=== PATIENT | male | born 1940 | race Caucasian/White ===

== ENCOUNTER → 2017-08-30 | Outpatient (CLI) | payer OTHER, BC ==
[~2017-08-30] MED LIST: ATOR10TA82 PO; B-COTAB18 PO; CLTP PO; COEN10CA4 PO; DPH/ PO; LEVO25TA PO; LISI-729 PO; MULT-506 PO; MULT-663 PO; PANT40TA PO; RED600TA PO; SILD100T PO; VITAMIN C PO
== END | disposition home or self-care (01) ==
LOC: C.RDSM 09:20
PROVIDERS: ATTEND Family Medicine Sports Medicine
DX: M54.6 Pain in thoracic spine (principal)

== ENCOUNTER 2017-10-10 08:57 | Emergency (ER) | payer OTHER, BC ==
[~2017-10-10] VITALS: Ht 182.9 cm; Wt 89.4 kg
[2017-10-10 08:59] VITALS: TEMP 36.4; Ht 182.9 cm; Wt 89.4 kg
[2017-10-10] MEDS ORDERED: TPRSR/25 PO (09:27)
[2017-10-10] MEDS ORDERED: COLE1TAB4 PO (09:27)
[2017-10-10] MEDS ORDERED: LEVO75TA5 PO (09:27)
[2017-10-10] MEDS ORDERED: VNTHFA/IN INH (09:28)
[2017-10-10] MEDS ORDERED: METOCLOPRAMIDE HCL INJ 5 MG/ML 2 ML VIAL IV STA (09:30)
--- NOTE | 2017-10-10 09:32 | EMERGENCY ROOM VISIT NOTE ---
History Report prepared by El: Rachid Partida Under the Supervision of: Dr. Helio Loya M.D. First contact with patient: 09:12 Chief Complaint: ABDOMINAL PAIN Stated Complaint: ABDOMINAL PAIN History of Present Illness The patient is a 76 year old male with a history of diverticulitis who presents to the Emergency Room with complaints of waxing and waning lower abdominal pain that started 2 days ago. He says that he was at [facility] prior to arrival, and was sent here for a CT scan. He states that the pain was bad the night of onset, but was not quite as bad yesterday, but the pain is always there. The patient says that he felt constipated, so he took Dulcolax 2 nights ago and passed some stool yesterday. The patient states that he still feels constipated however. He notes that his current pain is somewhat similar to the pain during his bouts of diverticulitis. The patient is not on any blood thinners. Source of History: patient Onset: 2 days ago Position: abdomen (lower) Symptom Intensity: pain always there - sent here for CT scan Quality: other (hx of diverticulitis) Timing: waxes/wanes Note: Associated symptoms: A bit constipated. Review of Systems See HPI for pertinent positives & negatives. A total of 10 systems reviewed and were otherwise negative. Past Medical & Surgical Medical Problems: (1) Heart disease (2) HTN (hypertension) Surgical Problems: (1) History of mitral valve repair Family History Hypertension Social History Smoking Status: Former Smoker Alcohol Use: occasionally Drug Use: none Marital Status: Housing Status: lives with significant other Occupation Status: retired Current/Historical Medications Scheduled Atorvastatin (Lipitor), 0.5 TAB PO MWF B-Complex Vitamins (Vitamin B Complex), 1 TAB PO DAILY Ciprofloxacin Hcl (Cipro), 1 TAB PO BID Colestipol Hcl (Micronized Colestipol Hcl), 2 TABS PO BID Levothyroxine Sodium (Levothyroxine Sodium), 1 TAB PO DAILY Lisinopril (Zestril), 2.5 MG PO DAILY Metoprolol Succinate (Metoprolol Succinate ER), 1 TAB PO DAILY Metronidazole (Flagyl), 500 MG PO TID Multiple Minerals W/ Vitamins (Citracal Plus), 1 TAB PO DAILY Multivitamin (Multivitamin), 1 TAB PO DAILY Red Yeast Rice Extract (Red Yeast Rice), 1 TAB PO DAILY Sildenafil Citrate (Viagra), 60 MG PO PRN Scheduled PRN Albuterol Hfa (Ventolin Hfa), 2 PUFFS INH for Wheezing Allergies Coded Allergies: Aspirin (Unverified Adverse Reaction, Mild, GI UPSET, 10/10/17) Physical Exam Vital Signs Date Time Temp Pulse Resp B/P (MAP) Pulse Ox O2 Delivery O2 Flow Rate FiO2 10/10/17 13:23 52 16 139/65 97 10/10/17 12:15 52 16 119/55 97 Room Air 10/10/17 10:35 60 16 130/63 95 Room Air 10/10/17 08:59 36.4 53 18 149/79 97 Room Air Physical Exam GENERAL: Patient is a healthy-appearing well-nourished 76 year old male. HEAD: Normocephalic atraumatic EYES: Ocular movements intact pupils equal and react to light OROPHARYNX mucous membranes are moist no exudates present no erythema or edema present NECK: Supple no nuchal rigidity CHEST: Good equal expansion LUNGS: Clear and equal to auscultation CARDIAC: Normal S1 and S2 ABDOMEN: Soft, slight suprapubic tenderness, no guarding BACK: No CVA tenderness EXTREMITIES: No pain upon palpation normal muscle strength in all groups no clubbing cyanosis or edema NEURO: Patient is following commands and answering questions appropriately. Alert and oriented x3 Cranial Nerves 2-12 grossly intact Medical Decision & Procedures ER Provider Diagnostic Interpretation: CT results as stated below per my review and radiologist interpretation: CT OF THE ABDOMEN AND PELVIS WITH CONTRAST CLINICAL HISTORY: Left lower quadrant abdominal pain. COMPARISON STUDY: CT of the abdomen and pelvis November 16, 2010. TECHNIQUE: Following IV administration of 91 mL of Optiray-320, axial images of the abdomen and pelvis were obtained from the lung bases to the proximal femurs. Images were reviewed in the axial, sagittal, and coronal planes. IV contrast was administered without complication. A dose lowering technique was utilized adhering to the principles of ALARA. Oral contrast was administered. CT DOSE: 591.36 mGy.cm FINDINGS: The heart is mildly enlarged. The liver, adrenal glands and pancreas are unremarkable as is the right kidney. There has been interval development of mild to moderate left hydronephrosis since CT of November 16, 2010. No ureteral calculi are present. There is a 4 mm calculus within lower pole of the left kidney. The etiology for this dilatation is unclear however there is a vessel in close proximity to the ureteropelvic junction. The caliber of the left ureter is normal. No pneumatosis, free air or portal venous gas is present. There is an inflamed diverticulum of the mid sigmoid colon with mild pericolonic infiltration. There is no free air or abscess. There is been interval development of moderate splenomegaly since prior CT. Mild upper abdominal lymphadenopathy is also developed with a 1.6 cm portacaval lymph node. The appendix is normal. IMPRESSION: 1. Mild acute sigmoid diverticulitis. No free air or abscess. 2. Interval development of moderate splenomegaly and mild upper abdominal lymphadenopathy since CT of November 16, 2010. This is nonspecific but raises the possibility of a lymphoproliferative disorder. 3. Interval development of mild to moderate left hydronephrosis with normal caliber left ureter. This finding could be related to a crossing vessel, stricture or occult lesion. Nonemergent urologic consultation is recommended. No ureteral calculi identified. Electronically signed by: Octavio Wiseman M.D. 10/10/2017 12:39 PM Dictated Date/Time: 10/10/2017 12:28 PM Laboratory Results 10/10/17 09:35 Red Blood Count 4.80, Mean Corpuscular Volume 86.5, Mean Corpuscular Hemoglobin 29.8, Mean Corpuscular Hemoglobin Concent 34.5, Mean Platelet Volume 9.3, Neutrophils (%) (Auto) 69.3, Lymphocytes (%) (Auto) 19.9, Monocytes (%) (Auto) 9.4, Eosinophils (%) (Auto) 1.0, Basophils (%) (Auto) 0.2, Neutrophils # (Auto) 3.62, Lymphocytes # (Auto) 1.04, Monocytes # (Auto) 0.49, Eosinophils # (Auto) 0.05, Basophils # (Auto) 0.01 10/10/17 09:35 Test 10/10/17 09:35 10/10/17 10:30 White Blood Count 5.22 K/uL (4.8-10.8) Red Blood Count 4.80 M/uL (4.7-6.1) Hemoglobin 14.3 g/dL (14.0-18.0) Hematocrit 41.5 % (42-52) Mean Corpuscular Volume 86.5 fL (80-100) Mean Corpuscular Hemoglobin 29.8 pg (25-34) Mean Corpuscular Hemoglobin Concent 34.5 g/dl (32-36) Platelet Count 144 K/uL (130-400) Mean Platelet Volume 9.3 fL (7.4-10.4) Neutrophils (%) (Auto) 69.3 % Lymphocytes (%) (Auto) 19.9 % Monocytes (%) (Auto) 9.4 % Eosinophils (%) (Auto) 1.0 % Basophils (%) (Auto) 0.2 % Neutrophils # (Auto) 3.62 K/uL (1.4-6.5) Lymphocytes # (Auto) 1.04 K/uL (1.2-3.4) Monocytes # (Auto) 0.49 K/uL (0.11-0.59) Eosinophils # (Auto) 0.05 K/uL (0-0.5) Basophils # (Auto) 0.01 K/uL (0-0.2) RDW Standard Deviation 43.7 fL (36.4-46.3) RDW Coefficient of Variation 13.8 % (11.5-14.5) Immature Granulocyte % (Auto) 0.2 % Immature Granulocyte # (Auto) 0.01 K/uL (0.00-0.02) Anion Gap 9.0 mmol/L (3-11) Est Creatinine Clear Calc Drug Dose 61.6 ml/min Estimated GFR () 73.6 Estimated GFR (Non- 63.5 BUN/Creatinine Ratio 14.5 (10-20) Calcium Level 8.8 mg/dl (8.5-10.1) Total Bilirubin 0.7 mg/dl (0.2-1) Direct Bilirubin 0.2 mg/dl (0-0.2) Aspartate Amino Transf (AST/SGOT) 17 U/L (15-37) Alanine Aminotransferase (ALT/SGPT) 26 U/L (12-78) Alkaline Phosphatase 123 U/L (45-117) Total Protein 6.6 gm/dl (6.4-8.2) Albumin 3.6 gm/dl (3.4-5.0) Lipase 123 U/L (73-393) Urine Color YELLOW Urine Appearance CLEAR (CLEAR) Urine pH 5.0 (4.5-7.5) Urine Specific [place] 1.020 (1.000-1.030) Urine Protein NEG (NEG) Urine Glucose (UA) NEG (NEG) Urine Ketones NEG (NEG) Urine Occult Blood TRACE (NEG) Urine Nitrite NEG (NEG) Urine Bilirubin NEG (NEG) Urine Urobilinogen NEG (NEG) Urine Leukocyte Esterase NEG (NEG) Urine WBC (Auto) 1-5 /hpf (0-5) Urine RBC (Auto) 0-4 /hpf (0-4) Urine Hyaline Casts (Auto) 1-5 /lpf (0-5) Urine Epithelial Cells (Auto) 0-5 /lpf (0-5) Urine Bacteria (Auto) NEG (NEG) Labs reviewed by ED physician. Medications Administered Medications (Trade) Dose Ordered Sig/Derrick Route Start Time Stop Time Status Last Admin Dose Admin Metoclopramide HCl (Reglan Inj) 10 mg NOW STAT IV 10/10/17 09:30 10/10/17 09:31 DC 10/10/17 09:43 10 MG Ciprofloxacin (Cipro Tab) 500 mg NOW STAT PO 10/10/17 12:57 10/10/17 12:59 DC 10/10/17 13:09 500 MG Metronidazole (Flagyl Tab) 500 mg NOW STAT PO 10/10/17 12:57 10/10/17 12:59 DC 10/10/17 13:09 500 MG ED Course 0924: Past medical records reviewed. The patient was evaluated in room B11B. A complete history and physical examination was performed. 0930: Ordered Reglan Inj 10 mg IV. 1255: Upon reexamination the patient is resting comfortably. I discussed results and treatment plan with the patient. He verbalizes agreement and understanding. The patient is ready for discharge. 1257: Ordered Flagyl Tab 500 mg PO, Cipro Tab 500 mg PO. Medical Decision Differential diagnosis: Etiologies such as appendicitis, diverticulitis, PUD, biliary pathology, UTI, pancreatitis, obstruction, mesenteric ischemia, aortic pathology, infections, inflammatory bowel disease, renal colic, as well as others were entertained. This is a 76 rolled male who presents emergency department complaining of left lower quadrant abdominal pain. Patient does have a history of diverticulitis. He was given Cipro as well as Flagyl and Reglan in the emergency department. I lengthy discussion with the patient regarding his lymph nodes on his CAT scan as well as his hydronephrosis on the left. I stressed the need for follow-up with urology I feel that the patient as well as to be discharged home as he does not have an elevation in his white blood count cell count is afebrile. He will return to emergency department if he develops severe abdominal pain. Patient was in agreement with the treatment plan.. Medication Reconcilliation Current Medication List: was personally reviewed by me Blood Pressure Screening Patient's blood pressure: Normal blood pressure Impression Primary Impression: Diverticulitis Scribe Attestation The scribe's documentation has been prepared under my direction and personally reviewed by me in its entirety. I confirm that the note above accurately reflects all work, treatment, procedures, and medical decision making performed by me. Departure Information Dispostion Home / Self-Care Prescriptions Metronidazole (Flagyl) 500 Mg Tab 500 MG PO TID for 10 Days, #30 TAB Prov: Helio Lyoa MD 10/10/17 Ciprofloxacin Hcl (CIPRO) 500 Mg Tab 1 TAB PO BID for 10 Days, #20 TAB Prov: Helio Loya MD 10/10/17 Referrals Varsha Casiano DO (PCP) Jazmin Sutton MD Forms Call Back Authorization, HOME CARE DOCUMENTATION FORM, IMPORTANT VISIT INFORMATION, School Instructions, Work Instructions Patient Instructions Diverticulitis Dc, Diverticulosis Diverticulitis, Lymphadenopathy, My [facility] Additional Instructions Follow up with PCP for increase in lymph nodes Follow up with Dr Sutton for left hydronephrosis with DR Sutton You have been examined and treated today on an emergency basis only. This is not a substitute for, or an effort to provide, complete comprehensive medical care. It is impossible to recognize and treat all injuries or illnesses in a single emergency department visit. It is therefore important that you follow up closely with Dr Casiano. Call as soon as possible for an appointment. Thank you for your time and consideration. I look forward to speaking with you again soon. Please don't hesitate to call us if you have any questions.
[2017-10-10] MEDS ORDERED: OPTIRAY 320 IV PRN (09:45)
[2017-10-10 09:47] LABS: BASO % 0.2 %; BASO ABS # 0.01 K/uL (0-0.2); EOS ABS # 0.05 K/uL (0-0.5); HEMATOCRIT 41.5 % (42-52); HEMOGLOBIN 14.3 g/dL (14.0-18.0); IG# 0.01 K/uL (0.00-0.02); LYMPH % 19.9 %; LYMPH ABS # 1.04 K/uL (1.2-3.4); MEAN CELL VOLUME 86.5 fL (80-100); MEAN CORPUSCULAR HEMOGLOBIN 29.8 pg (25-34); MEAN CORPUSCULAR HGB CONC 34.5 g/dl (32-36); MEAN PLATELET VOLUME 9.3 fL (7.4-10.4); MONO % 9.4 %; MONO ABS # 0.49 K/uL (0.11-0.59); NEUT % 69.3 %; NEUT ABS # 3.62 K/uL (1.4-6.5); PLATELET COUNT 144 K/uL (130-400); RED CELL DISTRIBUTION WIDTH CV 13.8 % (11.5-14.5); RED CELL DISTRIBUTION WIDTH SD 43.7 fL (36.4-46.3); WHITE BLOOD COUNT 5.22 K/uL (4.8-10.8)
[2017-10-10 10:11] LABS: ALBUMIN 3.6 gm/dl (3.4-5.0); CALCIUM 8.8 mg/dl (8.5-10.1); CREATININE 1.12 mg/dl (0.60-1.40); POTASSIUM 4.2 mmol/L (3.5-5.1); TOTAL PROTEIN 6.6 gm/dl (6.4-8.2)
--- NOTE | 2017-10-10 12:41 | DIAGNOSTIC IMAGING REPORT ---
CT OF THE ABDOMEN AND PELVIS WITH CONTRAST CLINICAL HISTORY: Left lower quadrant abdominal pain. COMPARISON STUDY: CT of the abdomen and pelvis November 16, 2010. TECHNIQUE: Following IV administration of 91 mL of Optiray-320, axial images of the abdomen and pelvis were obtained from the lung bases to the proximal femurs. Images were reviewed in the axial, sagittal, and coronal planes. IV contrast was administered without complication. A dose lowering technique was utilized adhering to the principles of ALARA. Oral contrast was administered. CT DOSE: 591.36 mGy.cm FINDINGS: The heart is mildly enlarged. The liver, adrenal glands and pancreas are unremarkable as is the right kidney. There has been interval development of mild to moderate left hydronephrosis since CT of November 16, 2010. No ureteral calculi are present. There is a 4 mm calculus within lower pole of the left kidney. The etiology for this dilatation is unclear however there is a vessel in close proximity to the ureteropelvic junction. The caliber of the left ureter is normal. No pneumatosis, free air or portal venous gas is present. There is an inflamed diverticulum of the mid sigmoid colon with mild pericolonic infiltration. There is no free air or abscess. There is been interval development of moderate splenomegaly since prior CT. Mild upper abdominal lymphadenopathy is also developed with a 1.6 cm portacaval lymph node. The appendix is normal. IMPRESSION: 1. Mild acute sigmoid diverticulitis. No free air or abscess. 2. Interval development of moderate splenomegaly and mild upper abdominal lymphadenopathy since CT of November 16, 2010. This is nonspecific but raises the possibility of a lymphoproliferative disorder. 3. Interval development of mild to moderate left hydronephrosis with normal caliber left ureter. This finding could be related to a crossing vessel, stricture or occult lesion. Nonemergent urologic consultation is recommended. No ureteral calculi identified. Electronically signed by: Octavio Wiseman M.D. 10/10/2017 12:39 PM Dictated Date/Time: 10/10/2017 12:28 PM
[2017-10-10] MEDS ORDERED: METRONIDAZOLE 250 MG TAB PO STA (12:57)
[2017-10-10] MEDS ORDERED: CIPROFLOXACIN 500 MG TAB PO STA (12:57)
[2017-10-10] MEDS ORDERED: METR-163 PO (13:01)
[2017-10-10] MEDS ORDERED: CIPR-255 PO (13:01)
[2017-10-10 13:23] VITALS: BP 139/65; PULSE 52; O2SAT 97
== END 2017-10-10 13:24 | disposition home or self-care (01) ==
LOC: C.EDB 08:59
DX: K57.32 Diverticulitis of large intestine without perforation or abscess without bleeding (principal); R59.0 Localized enlarged lymph nodes; N13.30 Unspecified hydronephrosis; I10 Essential (primary) hypertension; Z87.891 Personal history of nicotine dependence; Z88.6 Allergy status to analgesic agent; Z82.49 Family history of ischemic heart disease and other diseases of the circulatory system

== ENCOUNTER 2023-08-21 13:49 | Observation (INO) ==
--- OUTSIDE RECORDS SUMMARY | 2023-08-21 13:57 | External Medical Summary ---
Author Name Unknown Address Unknown Organization [id number]:[facility] [place] [address] Laboratory Report Ordering Provider Test Date Status SCARLETT ROCA 08/19/2023 07:53:33 Final Observation Date Value Abnormality Reference (Units ) Status BUN 08/19/2023 07:53:33 20 6-20 (mg/dL) Final Creatinine 08/19/2023 07:53:33 1.2 0.6-1.2 (mg/dL) Final Glomerular filtration rate/1.73 sq M.predicted [Volume Rate/Area] in Serum, Plasma or Blood by Creatinine-based formula (CKD-EPI) 08/19/2023 07:53:33 58 Below low normal >=60 (mL/min) Final eGFR is calculated based on the CKD-EPI 2020 equation SODIUM 08/19/2023 07:53:33 139 135-146 (m mol/L) Final Potassium 08/19/2023 07:53:33 4.5 3.5-5.1 (m mol/L) Final Cl 08/19/2023 07:53:33 103 98-107 (mm ol/L) Final CO2 08/19/2023 07:53:33 25 22-32 (mmo l/L) Final Anion gap 08/19/2023 07:53:33 11 7-15 (mmol /L) Final Glucose 08/19/2023 07:53:33 118 70-120 (mg /dL) Final Albumin 08/19/2023 07:53:33 4.1 3.8-5.0 (g /dL) Final AST (Aspartate aminotransferase) 08/19/2023 07:53:33 26 10-50 (U/L) Fin al Alk Phos 08/19/2023 07:53:33 142 Above high normal 35 -130 (U/L) Final Bilirubin, Total 08/19/2023 07:53:33 0.4 <=1 .2 (mg/dL) Final Calcium 08/19/2023 07:53:33 9.0 8.4-10.2 ( mg/dL) Final Protein 08/19/2023 07:53:33 6.5 6.0-8.3 (g /dL) Final ALT (Alanine aminotransferase) 08/19/2023 07:53:33 21 10-50 (U/L) Stan clinton Performing Location [facility] [address] [place] [address]
--- OUTSIDE RECORDS SUMMARY | 2023-08-21 13:57 | External Medical Summary | Summary of Care ---
Author Name Unknown Organization [facility] Address [address] [place] [address] Phone [phone] Care Team Providers Care Health And Safety Trainer Name Role Phone Varsha Casiano Primary Care Provider Reason for Visit * Reason Onset Date Comments Appointment 07/30/2023 Encounter Details Date Type Department Care Team (Late st Contact Info) Description 07/30/2023 Telephone Urology, [place] [address] [place] [address] Services, Scheduling [address] [place] [address] Appointment Allergies Active Allergy Reactions Criticality Noted Date Comments Aspirin Other (Please comment) 05/09/2014 Upset stomach Ciprofloxacin 10/17/2021 Cipro instructions say report numbness/tingling/pain in extremities. Had on & off pain in rt. foot at night. Numbness today. Have occssionally had pain in rt. foot at night following back surgery, but have not had numbness. Never had problem with Cipro before and now no problems with any other extremities. Latex 09/03/2021 Octacosanol Other (Please comment) 05/09/2014 Pt is unsure . Stuffy nose, runny nose muscle pain documented as of this encounter (statuses as of 08/03/2023) Medications Medication Sig Dispensed Refills Start Date End Date Status MULTIVITAMINS PO CAPS one capsule daily 0 Active Lactobacillus (PROBIOTIC ACIDOPHILUS) CAPS Take by mouth daily. 0 Active Calcium Carbonate-Vitamin D 500-5 MG-MCG Oral Tablet Take 1 Tablet by mouth in the morning. 0 Active Vitamin C 250 MG Oral Tablet (Ascorbic Acid) Take 1 Tablet by mouth in the morning. 0 Active Hydrocortisone (Perianal) 2.5 % External Cream (Anusol-HC) Administer into the rectum 2 times a day . 28 g 1 02/25/2022 Active Levothyroxine Sodium 75 MCG Oral Tablet (Levoxyl) Take by mouth 1 Tablet in the morning. (at least 30 min prior to breakfast or other meds). 90 Tablet 1 06/18/2022 Active Apixaban 5 MG Oral Tablet (Eliquis) Take 1 Tablet (5 mg) by mouth in the morning and 1 Tablet (5 mg) before bedtime. 60 Tablet 6 06/30/2022 Active Metoprolol Succinate ER 25 MG Oral Tablet Extended Release 24 Hour (toPROL XL)Indications:HTN, goal below 140/90,PSVT (paroxysmal supraventricular tachycardia) Take 1/2 tab by mouth every evening 34 Tablet 11 08/03/2022 Active Tamsulosin HCl 0.4 MG Oral Capsule (Flomax)Indications:We ak urinary stream Take 1 Capsule by mouth in the morning. Take at bedtime. 90 Capsule 3 10/14/2022 Active Sildenafil Citrate 20 MG Oral Tablet (Revatio) Take 3-5 tabs as needed 1 hour prior to intercourse 30 Tablet 11 10/20/2022 Active Sulfacetamide Sodium-Sulfur 10-5 % External CreamIndications:Rosac ea Apply to face once daily 28 g 1 10/20/2022 Active Vitamin B Complex Oral Tablet Take 1 Tablet by mouth in the morning. 0 Active Loperamide HCl 2 MG Oral Tablet Take 1 Tablet by mouth 4 times a day as needed for Diarrhea. 0 Active Ubiquinol 100 MG Oral Capsule Take by mouth. 0 Active Rosuvastatin Calcium 10 MG Oral Tablet (Crestor) Take 1 Tablet by mouth in the morning. 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 History of nonmelanoma skin cancer 07/13/2017 Overview: BCC left cheek 07/07 BCC left cheek 03/05 Rosacea 07/07/2016 Aortic regurgitation 09/23/2015 Organic erectile dysfunction 06/20/2015 Subclinical hypothyroidism 06/20/2015 Overview: Started on LT4 25 mcg daily 02/2015 Spermatocele 06/02/2014 Overview: Left S/P mitral valve repair 06/03/2012 Gastroesophageal reflux disease without esophagi tis 07/07/2010 HTN, goal below 130/80 03/24/2005 Irritable bowel syndrome with diarrhea 5 BPH with obstruction/lower urinary tract symptom s 03/24/2005 documented as of this encounter (statuses as of 08/03/2023) Resolved Problems Problem Noted Date Diagnosed Date Resolved Date Hypertensive kidney disease with chronic kidney disease stage III 02/16/2022 08/05/2022 Hypertensive kidney disease with chronic kidney disease stage III 02/16/2022 08/05/2022 Myelodysplastic syndrome, unspecified 02/12/2021 08/05/2022 Thrombocytopenia 02/12/2021 08/05/2022 Shivering 10/21/2020 08/05/2022 Hypertensive kidney disease with stage 3a chronic kidney disease 07/01/2020 08/05/2022 Overview: Per CKD protocol Hypertensive kidney disease with chronic kidney disease stage III 01/20/2019 08/07/2019 Hypertensive kidney disease with chronic kidney disease stage III 01/12/2019 07/04/2020 Overview: Per CKD protocol Kidney disease, chronic, sta ge III (GFR 30-59 ml/min) 01/02/2019 02/01/2019 Overview: Per CKD protocol #1 PSVT (paroxysmal supraventri cular tachycardia) 10/07/2018 08/05/2022 S/P MVR (mitral valve repair) 03/08/2018 08/07/2019 Rectal urgency 10/14/2017 08/05/2022 Inflammation of sacroiliac joint 12/28/2016 08/05/2022 History of basal cell carcinoma 07/07/2016 07/13/2017 Aortic valve sclerosis 07/23/201408/05 Dyslipidemia, goal LDL below 130 01/16/2014 07/18/2018 Chest pain 07/21/2012 03/15/2014 Atrial fibrillation 06/08/2012 06/24/20 12 Other specified pre-operative examination 04/07/2012 12/28/2016 Cardiovascular symptoms 05/27/201102/21 Diarrhea 03/05/2011 08/05/2022 History of tobacco use 11/19/201008/05 Overview: Quit at age 28 Dyslipidemia, goal to be determined 07/06/2005 01/04/2014 ADVANCE DIRECTIVE INFORMATION 03/24/2005 12/28/2016 Overview: No, Advance Directive brochure given to patient. Diverticulosis of colon 03/24/200503/2017 Mitral valve regurgitation 1 10/06/2021 documented as of this encounter (statuses as of 08/03/2023) Immunizations Name Administration Dates Next Due COVID-19 mRNA, LNP-s, No Pre serve, 2-Dose Series (Moderna) 05/02/2021,10/18/2020,09/20/2020 COVID-19, mRNA, LNP-s, PF, B ooster, 100mcg/0.5mg (Moderna) 10/13/2021 Pneumococcal Conjugate Vacc, 13 Valent (Prevnar) 12/03/2015 Pneumococcal Conjugate Vacci ne, 20-valent ([id number]) 02/26/2022 Pneumococcal Polysaccharide PPV23 (Pneumovax) 07/05/2006 Season Influenza, Quad, PF, Adjuvanted, 65+ Yrs, IM (FLUAD) 05/04/2020 Seasonal Influenza, PF, 6 M & above, IM , (FluLaval or Fluzone) 05/20/2017 Seasonal Influenza, Quadriva lent Hd (Fluzone Hd) 06/03/2022,05/24/2021 Seasonal Influenza, Quadriva lent, No Preserve, IM 06/17/2018,06/17/2016,05/23/2015 Seasonal Influenza, Split, I IV3, With Preserve, Inj 05/28/2014,05/25/2013,05/19/2012,05/23,06/26/2010,05/30/2009,05/24/20 08,07/11/2007,07/05/2006 05/30/2010 Seasonal Influenza, Trivalen t, High Dose, No Preserve, IM 05/11/2019 TD, Preservative Free 05/24/2008 TDAP (age 10 and older)(Boostrix) 02/22/2017 Varicella Zoster Vaccine (Adult) 11/14/2008 Zoster Vaccine Recombinant (Shingrix) 01/18/2019 ,06/09/2018 documented as of this encounter Social History Tobacco Use Types Packs/Day Years Used Date Smoking Tobacco: Former Cigarettes 1 30 Q uit: 08/23/1986 Smokeless Tobacco: Never Alcohol Use Standard Drinks/Week Comments Yes 0 (1 standard drink = 0.6 oz pur e alcohol) Socially AUDIT-C Answer Date Recorded Frequency of Alcohol Consumption 2-4 times a wed th 02/29/2020 Average Number of Drinks 1 or 2 020 Frequency of Binge Drinking Not on file 04/2020 PHQ-2 Answer Date Recorded PHQ Adult Total Score 0 03/13/2021 Hunger Vital Sign Answer Date Recorded Within the past 12 months, y ou worried that your food would run out before you got the money to buy more. Never true 03/13/20 21 Within the past 12 months, t he food you bought just didn't last and you didn't have money to get more. Never true 03/13/2021 Sex and Gender Information Value Date Recorded Sex Assigned at Male 12/15/2018 10:38 AM EDT Gender Identity Male 12/15/2018 10:38 AM EDT Sexual Orientation Straight 12/15/2018 10 :38 AM EDT Job Start Date Occupation Industry Not on file Not on file Not on file documented as of this encounter Functional Status Functional Status Response Date of Assess ment Are you deaf or do you have serious difficulty h earing? No 09/29/2018 Are you blind or do you have serious difficulty seeing, even when wearing glasses? No 09/29/2018 Do you have serious difficul ty walking or climbing stairs? (5 years old or older) No 09/29/2018 Do you have difficulty dress ing or bathing? (5 years old or older) No 09/29/2018 Because of a physical, menta l, or emotional condition, do you have difficulty doing errands alone such as visiting a doctor s office or shopping? (15 years old or older) No 09/29/19 19 Cognitive Status Response Date of Assessm ent Because of a physical, menta l, or emotional condition, do you have serious difficulty concentrating, remembering, or making decisions? (5 years old or older) No 09/29/2018 documented as of this encounter Miscellaneous Notes * Telephone Encounter - Gladis Ackerman OSA - 07/30/2023 4:03 PM EST Patient is having a weakened and split urine stream. First I have with Dr Flores is 02/28/2024, which Ihave scheduled and wait listed for. Is this acceptable, or should he be seen sooner? Please advise,thank you documented in this encounter Plan of Treatment Upcoming Encounters Date Type Department Care Team (Late st Contact Info) Description 09/02/2023 9:30 AM EST Cardiac Studies Cardiac Studies, [facility] [address] [facility] [place] [address] 09/23/2023 2:30 PM EST Office Visit Hematology/Oncology [facility] [address] [place] [address] Kristie Miranda CRNP [address] [place] [address] 10/26/2023 11:20 AM EST Office Visit Dermatology [facility] 200 [facility] [place] [address] Ayaka Alaniz PA-C [address] [place] [address] 02/28/2024 9:15 AM EDT Office Visit Urology, [place] [address] [place] [address] Shree Flores MD [address] [place] [address] Health Maintenance Due Date Last Done Comments CKD PHOS USE SMARTSET 84781 12/25/2009 12/25/2008, 1 08/31/2005 Depression Screening 03/13/2022 03/13/2021 Albumin/Creatinine Ratio 02/19/2023 02/19/2022, 01/22 HbA1c 02/19/2023 02/19/2022, 01/22, 02/01/2020, Additional history exists COVID-19 Vaccine ( season) 2023 10/13/2021, 05/02/2021, 10/18/2020, Additional history exists Influenza Vaccine (FLU shot) (#1) 2023 07/06/2022, 06/03/2022, 05/24/2021, Additional history exists GFR 12/29/2023 06/30/2023, 03/24, 03/24/2023, Additional history exists TSH 04/13/2024 04/13/2023, 05/0 08/2022, 02/19/2022, Additional history exists CKD HGB USE SMARTSET 21059 06/30/202406/30, 06/30/2023, 05/24/2023, Additional history exists DTaP,Tdap,and Td Vaccines (2 - Td or Tdap) 02/22/2027 02/22/2017, 05/24/2008 Zoster Vaccines Completed 01/18/2019, 05/23, 11/14/2008 Pneumococcal Vaccine: 65+ Years Completed 02/26/2022, 12/03/2015, 07/05/2006 GARDASIL-HPV IMMUNIZATION SERIES Aged Out No longer eligible based on patient's age to complete this topic Hepatitis B Aged Out No longer eligi ble based on patient's age to complete this topic MENINGOCOCCAL (MENACTRA/MENVEO) Aged Out No longer eligible based on patient's age to complete this topic documented as of this encounter Medical Devices Implanted Type Area Loader Demolder Device Identifier Shelf Expiration Date Model / Serial / Lot Ring Cantu 27mm [id number] - [id number] Implanted:Qty: 1 on 06/02/2012 at OR [facility] [place] N/A: Heart [employer] : CARDIAC SURGERY 10/08/2016 [id number] / [id number] / Mesh Marlex Large [id number] - [id number] Implanted:Qty: 1 on 01/07/2018 by Ori Burleson DO at OR [facility] Right: Groin CR BARD : DAVOL 10/20/2022 [id number] / / [id number] Description:#2 documented as of this encounter Advance Directives Latest Code Status on File Code Status Date Activated Date Inactivated Comments Full Code 09/29/2018 11:26 AM 09/30/2018 10:09 PM Question Answer Comments Discussion of Advance Direct jaqueline occurred with: Not Discussed Code Status History Code Status Date Activated Date Inactivated Comments Full Code 06/02/2012 2:59 PM 06/08/2012 7:06 PM Thi s order reflects the patients wishes and were consensually agreed upon. Care Teams Health And Safety Trainer Relationship Specialty Start Date End Date Varsha Casiano DO [address] [place] [address] PCP - General Family Medicine 01/31/17 documented as of this encounter
--- OUTSIDE RECORDS SUMMARY | 2023-08-21 13:57 | External Medical Summary ---
Author Name Unknown Address Unknown Organization K01:[facility] [address] [place] [address] Laboratory Report Ordering Provider Test Date Status SCARLETT ROCA 08/19/2023 07:53:33 Final Observation Date Value Abnormality Reference (Units ) Status LDH 08/19/2023 07:53:33 210 <=250 (U/L ) Final Performing Location [facility] [address] [place] [address]
--- OUTSIDE RECORDS SUMMARY | 2023-08-21 13:57 | External Medical Summary | Summary of Care ---
Author Name Unknown Organization [facility] Address [address] [place] [address] Phone [phone] Care Team Providers Care Semi Truck Driver Name Role Phone Varsha Casiano Primary Care Provider Reason for Visit * Reason Onset Date Comments Appointment 07/30/2023 Encounter Details Date Type Department Care Team (Late st Contact Info) Description 07/30/2023 Telephone Urology, [place] [address] [place] [address] Services, Scheduling [address] [place] [address] Appointment Allergies Active Allergy Reactions Criticality Noted [...] as of this encounter (statuses as of 08/02/2023) Medications Medication Sig Dispensed Refills Start Date [...] as of this encounter (statuses as of 08/02/2023) Active Problems Problem Noted Date Diagnosed Date [...] as of this encounter (statuses as of 08/02/2023) Resolved Problems Problem Noted Date Diagnosed Date [...] as of this encounter (statuses as of 08/02/2023) Immunizations Name Administration Dates Next Due COVID-19 mRNA, LNP-s, No Pre serve, 2-Dose Series (Moderna) 05/02/2021,10/18/2020,09/20/2020 COVID-19, mRNA, LNP-s, PF, B ooster, 100mcg/0.5mg (Moderna) 10/13/2021 Pneumococcal Conjugate Vacc, 13 Valent (Prevnar) 12/03/2015 Pneumococcal Conjugate Vacci ne, 20-valent ([id number]) 02/26/2022 Pneumococcal Polysaccharide PPV23 (Pneumovax) 07/05/2006 SEASONAL INFLUENZA, PF, 6 M & Above, IM , (FLULAVAL or FLUZONE) 05/20/2017 Season Influenza, Quad, PF, Adjuvanted, 65+ Yrs, IM (FLUAD) 05/04/2020 Seasonal Influenza, Quadriva lent Hd (Fluzone Hd) [...] Frequency of Alcohol Consumption 2-4 times a mon th 02/29/2020 Average Number of Drinks 1 [...] 9:30 AM EST Cardiac Studies Cardiac Studies, [facility] [address] [facility] [place] [address] 09/23/2023 2:30 PM EST Office Visit Hematology/Oncology [facility] [address] [facility] [place] [address] Kristie Miranda CRNP [address] [place] [address] 02/28/2024 9:15 AM EDT Office Visit Urology, [place] [address] [place], [place] [address] Shree Flores MD [address] [facility] [place] [address] Health Maintenance Due Date Last Done Comments CKD PHOS USE SMARTSET 35190 12/25/2009 12/25/2008, 1 08/31/2005 Depression Screening 03/13/2022 [...] Additional history exists CKD HGB USE SMARTSET 47913 06/30/202406/30, 06/30/2023, 05/24/2023, Additional history exists DTaP,Tdap,and [...] this encounter Medical Devices Implanted Type Area Flatbed Stitcher Device Identifier Shelf Expiration Date Model / Serial / Lot Ring Cantu 27mm [id number] - [id number] [place]planted:Q[place] 1 [place] [facility] [place] Heart [employer] : CARDIAC SURGERY 10/08/2016 [id number] / [id number] / Mesh Marlex Large [id number] - [id number] Implanted:Qty: 1 on 01/07/2018 by Ori Burleson DO at OR [facility] Right: Gian OWENS BARD : DAVOL 10/20/2022 [id number] / / [id number] Description:#2 documented as of this encounter Advance [...] and were consensually agreed upon. Care Teams Semi Truck Driver Relationship Specialty Start Date End Date Varsha Casiano DO [address] [place] [address] PCP - General Family Medicine 01/31/17 documented as of this encounter
--- OUTSIDE RECORDS SUMMARY | 2023-08-21 13:57 | External Medical Summary ---
Author Name Unknown Address Unknown Organization K09[facility] [place] [address] Laboratory Report Ordering Provider Test Date Status SCARLETT ROCA 08/19/2023 07:53:33 Final Observation Date Value Abnormality Reference (Units ) Status WBC, Total 08/19/2023 07:53:33 6.66 4.00-10.8 0 (K/uL) Final RBC 08/19/2023 07:53:33 5.01 4.50-5.25 (M/uL) Final Hemoglobin 08/19/2023 07:53:33 14.8 14.0-16.8 (g/dL) Final HCT 08/19/2023 07:53:33 45.2 40.0-48.4 (%) Final MCV 08/19/2023 07:53:33 90.2 82.0-99.5 (fL) Final MCH 08/19/2023 07:53:33 29.5 27.0-34.0 (pg) Final MCHC 08/19/2023 07:53:33 32.7 32.0-36.0 (g/dL) Final RDW 08/19/2023 07:53:33 14.2 11.5-15.5 (%) Final Platelets 08/19/2023 07:53:33 190 140-400 (K /uL) Final MPV 08/19/2023 07:53:33 10.1 6.6-11.1 ( fL) Final Performing Location [facility] [place] [address]
--- OUTSIDE RECORDS SUMMARY | 2023-08-21 13:57 | External Medical Summary | Summary of Care ---
Author Name Unknown Organization [facility] Address [address] [facility] [place] [address] Phone [phone] Care Team Providers Care Skimmer Name Role Phone Varsha Casiano DO Primary Care Provider Reason for Visit * Reason Comments Outpatient Testing Encounter Details Date Type Department Care Team (Late st Contact Info) Description 08/19/2023 7:40 AM EST Laboratory [facility] [place] [address] [place] [address] [place] [address] [place] [address] Splenic marginal zone b-cell lymphoma (HCC) Allergies Active Allergy Reactions Criticality Noted Date [...] as of this encounter (statuses as of 08/19/2023) Medications Medication Sig Dispensed Refills Start Date [...] as of this encounter (statuses as of 08/19/2023) Active Problems Problem Noted Date Diagnosed Date [...] as of this encounter (statuses as of 08/19/2023) Resolved Problems Problem Noted Date Diagnosed Date [...] brochure given to patient. Diverticulosis of colon 03/24/2005 05/03/2017 Mitral valve regurgitation 1 10/06/2021 documented as of this encounter (statuses as of 08/19/2023) Immunizations Name Administration Dates Next Due COVID-19 mRNA, LNP-s, No Pre serve, 2-Dose Series (Moderna) 05/02/2021,10/18/2020,09/20/2020 COVID-19, mRNA, LNP-s, PF, B ooster, 100mcg/0.5mg (Moderna) 10/13/2021 Pneumococcal Conjugate Vacc, 13 Valent (Prevnar) 12/03/2015 Pneumococcal Conjugate Vacci ne, 20-valent ([id number]) 02/26/2022 Pneumococcal Polysaccharide PPV23 (Pneumovax) 07/05/2006 Season [...] No 09/29/2018 documented as of this encounter Plan of Treatment Upcoming Encounters Date Type Department Care Team (Late st Contact Info) Description 08/26/2023 11:30 AM EST Office Visit Gastroenterology, [facility] [address] [place] [address] Zaira Miranda CRNP [address] [facility] [place] [address] 08/26/2023 3:30 PM EST Office Visit Hematology/Oncology [facility] 200 [place] [address] Kirstie Miranda CRNP [address] [facility] [place] [address] 08/27/2023 11:30 AM EST Office Visit Urology, [place] [address] [place] [address] Berry Castillo PA-C [address] [place] [address] 09/02/2023 9:30 AM EST Cardiac Studies Cardiac Studies, [facility] [address] [place] [address] 09/23/2023 2:30 PM EST Office Visit Hematology/Oncology [facility] 200 [facility] [place] [address] Kristie Miranda CRNP [address] [place] [address] 10/26/2023 11:20 AM EST Office Visit Dermatology [facility] [address] [facility] [place] [address] Ayaka Alaniz PA-C [address] [facility] [place] [address] Pending Results Name Type Priority Associated Diagnoses Date /Time COMPREHENSIVE METABOLIC PANEL Lab STAT Splenic marginal zone b-cell lymphoma (HCC) 08/19/2023 7:53 AM EST LD Lab STAT Splenic marginal zone b-cell lymphoma (HCC) 08/19/2023 7:53 AM EST Health Maintenance Due Date Last Done Comments CKD PHOS USE SMARTSET 44198 12/25/2009 12/25/2008, 1 08/31/2005 Depression Screening 03/13/2022 [...] Additional history exists CKD HGB USE SMARTSET 84683 06/30/202408/19, 08/19/2023, 06/30/2023, Additional history exists DTaP,Tdap,and Td Vaccines (2 [...] this encounter Medical Devices Implanted Type Area Microarray Operations Vice President Device Identifier Shelf Expiration Date Model / Serial / Lot Ring Cantu 27mm [id number] - [id number] Implanted:Qty: 1 on 06/02/2012 at [place] [facility] [place] N/A: Heart [employer] : CARDIAC SURGERY 10/08/2016 [id number] / [id number] / Mesh Marlex Large [id number] - [id number] Implanted:Qty: 1 on 01/07/2018 by Ori Burleson DO at OR [facility] Right: Groin CR BARD : DAVOL 10/20/2022 [id number] / / [id number] Description:#2 documented as of this encounter Procedures Procedure Name Priority Date/Time Associated Diagnosis Comments DIFFERENTIAL, AUTOMATED STAT 08/19/2023 7:53 AM EST Splenic marginal zone b-cell lymphoma (HCC) CBC STAT 08/19/2023 7:53 AM EST Splenic marginal zone b-cell lymphoma (HCC) CBC STAT 08/19/2023 7:53 AM EST Splenic marginal zone b-cell lymphoma (HCC) documented in this encounter Results * (ABNORMAL) DIFFERENTIAL, AUTOMATED (08/19/2023 7:53 AM EST) WBC 6.66 4.00 - 10.80 K/uL 08/19/2023 8:02 AM [facility] 56-02 Neutrophils % 71.7 40.0 - 75.0 % 08/19/2023 8:02 AM [facility] 56-02 Lymphocytes % 16.5(L) 18.0 - 42.0 % 08/19/2023 8:02 AM [facility] 56-02 Monocytes % 9.6 1.0 - 11.0 % 08/19/2023 8:02 AM [facility] 56-02 Eosinophils % 1.7 0.0 - 6.0 % 08/19/2023 8:02 AM [facility] 56-02 Basophils % 0.5 0.0 - 2.0 % 08/19/2023 8:02 AM [facility] 56-02 Absolute Neutrophils 4.78 1.80 - 7.70 K/uL 08/19/2023 8:02 AM [facility] 56-02 Absolute Lymphocytes 1.10 1.00 - 4.80 K/ul 08/19/2023 8:02 AM [facility] 56-02 Absolute Monocytes 0.64 0.00 - 1.10 K/uL 08/19/2023 8:02 AM [facility] 56-02 Absolute Eosinophils 0.11 0.00 - 0.70 K/uL 08/19/2023 8:02 AM [facility] 56-02 Absolute Basophils 0.03 0.00 - 0.20 K/uL 08/19/2023 8:02 AM [facility] 56-02 Blood Venous blood specimen / Unknown Venipuncture / Unknown 08/19/2023 7:53 AM EST 08/19/2023 7:54 AM EST Hannah NELSON LAB BLOOD ORDERAB LES [facility] 56-[address] [place] [address] * CBC (08/19/2023 7:53 AM EST) WBC 6.66 4.00 - 10.80 K/uL 08/19/2023 8:02 AM [facility] 56-02 RBC 5.01 4.50 - 5.25 M/uL 08/19/2023 8:02 AM [facility] 56- HGB 14.8 14.0 - 16.8 g/dL 08/19/2023 8:02 AM [facility] 56- HCT 45.2 40.0 - 48.4 % 08/19/2023 8:02 AM [facility] 56- MCV 90.2 82.0 - 99.5 fL 08/19/2023 8:02 AM [facility] 56- MCH 29.5 27.0 - 34.0 pg 08/19/2023 8:02 AM [facility] 56- MCHC 32.7 32.0 - 36.0 g/dL 08/19/2023 8:02 AM [facility] 56- RDW 14.2 11.5 - 15.5 % 08/19/2023 8:02 AM [facility] 56- PLT 190 140 - 400 K/uL 08/19/2023 8:02 AM [facility] 56- MPV 10.1 6.6 - 11.1 fL 08/19/2023 8:02 AM [facility] 56- Blood Venous blood specimen / Unknown Venipuncture / Unknown 08/19/2023 7:53 AM EST 08/19/2023 7:54 AM EST Hannah NELSON LAB BLOOD ORDERAB LES [facility] [address]- [address] [place] [address] documented in this encounter Visit Diagnoses Diagnosis 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 Care Teams Skimmer Relationship Specialty Start Date End Date Varsha Casiano DO [address] [place] [address] PCP - General Family Medicine 01/31/17 documented as of this encounter
[2023-08-21] MEDS ORDERED: HYDROCORTISONE SOD SUCCINATE 100 MG/2 ML VIAL IV STA (13:58)
[2023-08-21] MEDS ORDERED: OPTIRAY 320 125ml IV ONE (13:59)
--- NOTE | 2023-08-21 14:02 | Emergency Department Note ---
Impression & Plan Ischemic cerebrovascular accident (CVA) ED Provider Note NAME: ELHAM VILA AGE: 82 SEX: M : 1940 ARRIVES VIA: Ambulance INFORMANT: Patient, EMS personnel ED PROVIDER(S): Bert Bustamante DO CHIEF COMPLAINT: Stroke alert HPI: The patient is a 82-year-old male who presented to the emergency department for an evaluation of strokelike symptoms. The patient had an acute episode of right leg weakness and difficulty speaking at approxi-10 AM today. His symptoms did not last very long. He states they lasted minutes. He was with his significant other. He decided to come to the hospital for the symptoms. En route to the hospital the patient developed symptoms again at approximately 1:45 PM. He started noticing right-sided facial droop difficulty speaking right arm weakness and right leg weakness. The patient denies having any headache or falls. He does have a history of atrial flutter and does take Eliquis. He did not take his morning dose today but did take his last dose last evening. The patient denies having any history of stroke ROS: See above HPI for pertinent positives & negatives. A total of 10 systems reviewed and were otherwise negative. PAST MEDICAL HISTORY: See Below PAST SURGICAL HISTORY: See Below FAMILY HISTORY: See Below SOCIAL HISTORY: See Below HOME MEDICATIONS: See Below ALLERGIES: See Below VITALS: See Below PHYSICAL EXAMINATION: GENERAL: Patient is awake alert in no acute distress patient is resting comfortably and showing no signs of anxiety EYES: The conjunctivae are clear. The pupils are round and reactive. EARS, NOSE, MOUTH AND THROAT: The nose is without any evidence of any deformity. NECK: The neck is nontender and supple. RESPIRATORY: Normal respiratory effort is noted there is no evidence of wheezing rhonchi or rales CARDIOVASCULAR: Regular rate and rhythm noted there no murmurs rubs or gallops normal S1 normal S2. GASTROINTESTINAL: The abdomen is soft. Abdomen is nontender. MUSCULOSKELETAL/EXTREMITIES: There is no evidence of gross deformity full range of motion is noted in the hips and shoulders. SKIN: There is no obvious evidence of any rash. There are no petechiae, pallor or cyanosis noted. NEUROLOGIC: Patient is awake alert and oriented x3. Speech is thick but understandable. The patient has a right-sided facial droop with forehead sparing. This mostly involves the right corner of the mouth. [employer] strength is not equal. [employer] strength in the right hand is less than the left hand to confrontation. Patient is able to hold each leg off the bed but the right leg he cannot hold for 5 seconds. MEDICAL DECISION MAKING: The patient is an 82-year-old male who presented to the emergency department for strokelike symptoms. The patient noticed an acute onset of symptoms this morning which quickly resolved. When the patient notified his significant other about this she called 911 and the patient arrived via ambulance. En route the patient developed strokelike symptoms with acute dysarthria and right-sided weakness. The patient is not a candidate for thrombolytics as he took his Eliquis within the last 24 hours. I discussed the patient's laboratory and radiographic studies with him. He was evaluated by the telestroke neurologist. At this time he has no signs of large vessel occlusion. Symptoms are ongoing. He was treated with IV fluids and aspirin. He was also treated with IV magnesium. He was also treated with an IV steroid as well as Benadryl for a reported contrast dye allergy. I discussed his condition with the on-call [facility] hospitalist. They have agreed to evaluate the patient in the emergency department for further management and disposition. Triage Nursing notes reviewed. Prior medical records reviewed Vital Signs: reviewed and remarkable for no significant abnormalities Differential diagnosis: Infection, dehydration, metabolic abnormality, hypo/hyperglycemia, electrolyte disturbance, anemia, hypoxia, cardiac sources, intracerebral event, toxicologic, neurologic, as well as other pathologies. ER treatment provided: See below Diagnostics interpreted by me: ECG: EKG was obtained in the emergency department. My interpretation is sinus bradycardia at 55 bpm. There is no ectopy. There is no acute ST segment abnormalities noted. Nonspecific intraventricular conduction delay was noted. This was compared to a tracing from August 04, 2022. No changes were noted. Cardiac Monitoring: An order was placed for continuous cardiac monitoring. The monitor shows a rate of 58 bpm with sinus bradycardia Laboratory studies: As stated above and show below. Imaging studies: See below. Radiographic imaging was reviewed by myself Consultation(s): I discussed this case with Dr Aguilera who was on for the telestroke team. I discussed this case with Dr Lawrence who was on for the [facility] ED COURSE: Procedures: none Critical Care: I have personally spent greater than 45 minutes of critical care time in the direct management of this patient. This includes bedside care, interpretation of diagnostic studies, and testing, discussion with consultants, patient, and family members, and other required patient management activities. This 45 minutes is in excess of all separately billable procedures. Past Med/Surg History Medical History (Updated 08/21/23 @ 16:56 by Phu Lawrence MD) Chronic anticoagulation Marginal zone B-cell lymphoma DR [facility]- DX END OF 2020- TREATED W/ IMMUNE THERAPY INFUSIONS- IN REMISSION Atrial flutter Environmental allergies has not needed inhaler > 1yr Basal cell carcinoma (BCC) Mitral valve regurgitation Surgical History History of esophagogastroduodenoscopy (EGD) Hx of colonoscopy History of back surgery - 2020 Hx of cardiac catheterization 2011- [place]- no stents History of kidney surgery History of mitral valve repair [facility] - FOLLOWS W/ DR CAEVEDO, LAST VISIT 06/2022 History of sinus surgery History of hernia repair Social History Smoking Status: Former smoker Tobacco Type: Cigarettes Second Hand Exposure: No; Do You Dip or Chew Tobacco: No; Hx Alcohol Use: Yes (occasionally) Hx Substance Use: No Preferred Language: Moroccan Communication Ability: Effective Shellfish [employer] Required: No Beliefs That Will Affect Care: None marital status: Current Living Situation: Spouse current occupational status: retired Feels Safe at Home: Yes Assistive Devices: Glasses Allergies Allergies Allergy/AdvReac Type Severity Reaction Status Date / Time aspirin AdvReac Mild GI UPSET Unverified 07/22/23 12:58 Latex Allergy Unknown Unknown Uncoded 07/22/23 12:58 Home Meds Home Medications Medication Instructions Recorded Confirmed ascorbate calcium (vitamin C) 500 500 mg PO QAM 06/12/20 08/21/23 mg tablet levothyroxine 75 mcg capsule 75 mcg PO QAM 06/12/20 08/21/23 metoprolol succinate 25 mg capsule 12.5 mg PO QPM 06/12/20 08/21/23 sprinkle, ext. release 24 hr apixaban 5 mg tablet (Eliquis) 5 mg PO BID 07/30/22 08/21/23 coenzyme Q10 100 mg capsule (Co 100 mg PO QAM 07/30/22 08/21/23 Q-10) lactobacillus combination no.4 3 3,000 mmu cells PO QAM 07/30/22 08/21/23 billion cell capsule (Probiotic) multivitamin 1 tab PO QAM 07/30/22 08/21/23 tamsulosin 0.4 mg capsule 0.4 mg PO HS 07/30/22 08/21/23 B-complex with vitamin C 1 cap PO DAILY 07/22/23 08/21/23 rosuvastatin 10 mg tablet 10 mg PO DAILY 07/22/23 08/21/23 calcium carbonate 500 mg calcium 500 mg PO QAM 08/21/23 08/21/23 (1,250 mg) tablet Results & Data (ED) Vital Signs Vital Signs - 24 hr 08/21/23 13:49 08/21/23 14:30 Temperature 36.7 C Temperature Source Oral Pulse Rate 61 58 L Respiratory Rate 20 Respiratory Effort / Characteristics Non-Labored Respiratory Depth Normal Blood Pressure 119/92 Blood Pressure Mean 101 Pulse Oximetry 95 Oxygen Delivery Method Room Air Sepsis Recent Fever Within 48 Hours No Sepsis New/Unexplained Change in Mental Status N/A Sepsis Action Taken by Nursing No Action Required Home Medications Current Medication List: was personally reviewed by me Laboratory Data Attestation: I reviewed the patient's lab results. 08/21/23 14:17 08/21/23 14:17 Lab Results 08/21/23 08/21/23 Range/Units 14:17 14:24 WBC 5.58 (4.8-10.8) K/ul RBC 4.67 L (4.70-6.10) M/uL Hgb 13.8 L (14.0-18.0) g/dl Hct 41.5 L (42.0-52.0) % MCV 88.9 (80.0-100.0) fL MCH 29.6 (25.0-34.0) pg MCHC 33.3 (32.0-36.0) g/dL RDW Std Deviation 43.3 (36.4-46.3) fL RDW Coeff of Selena 13.2 (11.5-14.5) % Plt Count 175 (130-400) K/uL MPV 10.0 (9.4-12.4) fL Immature Gran % (Auto) 0.2 % Neut % (Auto) 73.2 % Lymph % (Auto) 16.8 % [place] % (Auto) 8.4 % Eos % (Auto) 0.9 % Baso % (Auto) 0.5 % Neut # (Auto) 4.08 (1.40-6.50) K/uL Lymph # (Auto) 0.94 L (1.20-3.40) K/uL [place] # (Auto) 0.47 (0.11-0.59) K/uL Eos # (Auto) 0.05 (0.00-0.50) K/uL Baso # (Auto) 0.03 (0.00-0.20) K/uL Immature Gran # (Auto) 0.01 (0.01-0.20) K/uL PT 11.5 (9.0-12.0) Seconds INR 1.1 (0.9-1.1) APTT 31 (21-31) Seconds PTT Ratio 1.1 Sodium 134 L (136-145) mmol/L Potassium 4.4 (3.5-5.1) mmol/L Chloride 102 (98-107) mmol/L Carbon Dioxide 26 (21-32) mmol/L Anion Gap 6 (3-11) BUN 23 (6-23) mg/dl Creatinine 1.13 (0.6-1.4) mg/dl Est Cr Clr Drug Dosing 60.9 ml/min Est GFR ( Amer) 69.8 ml/min Est GFR (Non-Af Amer) 60.2 ml/min BUN/Creatinine Ratio 20.4 H (10-20) Glucose 100 H (70-99(Fasting)) mg/dl POC Glucose 110 H (70-99) mg/dl Calcium 8.6 (8.6-10.3) mg/dl Magnesium 2.0 (1.7-2.4) mg/dl Total Bilirubin 0.5 (0.2-1.0) mg/dl AST 23 (13-39) U/L ALT 21 (7-52) U/L Alkaline Phosphatase 112 H (34-104) U/L Troponin I High Sens 38.7 H (0-20) pg/ml Total Protein 6.1 (6.0-8.3) gm/dl Albumin 3.8 (3.4-5.0) gm/dl Globulin 2.3 L (2.5-4.0) gm/dl Albumin/Globulin Ratio 1.7 (0.9-2) Administered Medications Discontinued Medications Aspirin (Aspirin Chew 324 Mg) 324 mg PO NOW STA Stop: 08/21/23 14:55 Last Admin: 08/21/23 16:25 Dose: 324 mg Documented By: SHAYNE Diphenhydramine HCl (Diphenhydramine 50 Mg/Ml Vial) 50 mg IV ONE ONE Stop: 08/21/23 18:00 Last Admin: 08/21/23 17:16 Dose: Not Given Documented By: SHAYNE Diphenhydramine HCl (Diphenhydramine 50 Mg/Ml Vial) 25 mg IV NOW STA Stop: 08/21/23 15:27 Last Admin: 08/21/23 16:22 Dose: 25 mg Documented By: SHAYNE Hydrocortisone Sodium Succinate (Hydrocortisone Sod Succinate 100 Mg/2 Ml Vial) 200 mg IV NOW STA Stop: 08/21/23 13:59 Last Admin: 08/21/23 14:12 Dose: 200 mg Documented By: ISREAL Sodium Chloride (Nss) 250 mls @ 999 mls/hr IV .Q16M ONE Stop: 08/21/23 15:06 Last Infusion: 08/21/23 16:40 Dose: Infused Documented By: Admin: 08/21/23 16:21 Dose: 999 mls/hr Documented By: SHAYNE Magnesium Sulfate/Dextrose (Magnesium Sulfate / D5w) 1 gm in 100 mls @ 100 mls/hr IV NOW STA Stop: 08/21/23 15:50 Last Infusion: 08/21/23 17:30 Dose: Infused Documented By: Admin: 08/21/23 16:21 Dose: 100 mls/hr Documented By: SHAYNE Ioversol (Optiray 320 125ml) 117 ml IV ONCE ONE Stop: 08/21/23 14:00 Last Admin: 08/21/23 14:00 Dose: 117 ml Documented By: HEIKE Imaging Data Attestation: I personally reviewed and interpreted this imaging study as follows: My Impression: 1 view chest x-ray was obtained in the emergency department. My interpretation is no free air or definite infiltrate, final report below. CT of the brain was obtained in the emergency department. My interpretation is no intracranial hemorrhage or mass effect, final report below Radiologist's Impression: Chest X-Ray 08/21/23 13:53 XR chest 1V portable HISTORY: 82 years-old Male neuro deficit, acute stroke suspected acute strokelike symptoms COMPARISON: 07/14/2012 TECHNIQUE: AP view of the chest FINDINGS: Cardiac silhouette is enlarged. No pneumothorax, pleural effusion or airspace consolidation. Mild chronic central coarsening. There are multiple epicardial pacer wires. Cardiac valvular prosthesis. Bones appear grossly intact. IMPRESSION: No acute process. ACT 112: Negative or not required by law. The above report was generated using voice recognition software. It may contain grammatical, syntax or spelling errors. Electronically signed by: Iván Genao M.D. 08/21/2023 3:[address] 08/21/23 13:53 CT angio head w con, CT angio neck with con, CT head/brain wo con CLINICAL HISTORY: 82 years-old Male with neuro deficit, acute stroke suspected. Acute stroke like symptoms COMPARISON STUDY: Brain MRI 11/09/2022 TECHNIQUE: Unenhanced axial CT scan of the brain is performed. Subsequently, following the IV administration of 117 cc of Optiray, CT angiogram of the head and neck was performed from the aortic arch to the skull apex. Images are reviewed in the axial, sagittal, and coronal planes. 3-D MIPS images are created and assessed. IV contrast was administered without complication. All measurements were obtained according to NASCET criteria. A dose lowering technique was utilized adhering to the principles of ALARA. CT DOSE: 1150.67 mGy.cm FINDINGS: CT BRAIN: There is no acute intracranial hemorrhage, midline shift, hydrocephalus, intracranial mass, territorial ischemia or abnormal extra-axial collections. No abnormal intra-axial or extra-axial enhancement. Involutional changes with chronic microvascular ischemic disease redemonstrated. Senescent calcifications of the basal ganglia. Mastoid air cells and middle ear cavities are clear. No calvarial fracture. Postoperative changes of the paranasal sinuses. CT ANGIOGRAM OF THE HEAD AND NECK: Three-vessel morphology of the thoracic aortic arch. Patency of the innominate and image subclavian arteries. The common and internal carotid arteries are patent. The bilateral anterior and middle cerebral arteries are also patent. Dominant left vertebral artery. The vertebrobasilar system and posterior cerebral arteries are widely patent. There is no aneurysm, high-grade stenosis, or proximal branch occlusion identified. Dural sinuses appear patent. Multinodular thyroid goiter. Lung apices are clear. Unremarkable soft tissues. No acute fracture. IMPRESSION: 1. No acute intracranial abnormality. 2. Unremarkable CTA of the head and neck. ACT 112: Negative or not required by law. The above report was generated using voice recognition software. It may contain grammatical, syntax or spelling errors. Electronically signed by: Iván Genao M.D. 08/21/2023 2:18 PM Head CTA 08/21/23 13:53 CT angio head w con, CT angio neck with con, CT head/brain wo con CLINICAL HISTORY: 82 years-old Male with neuro deficit, acute stroke suspected. Acute stroke like symptoms COMPARISON STUDY: Brain MRI 11/09/2022 TECHNIQUE: Unenhanced axial CT scan of the brain is performed. Subsequently, following the IV administration of 117 cc of Optiray, CT angiogram of the head and neck was performed from the aortic arch to the skull apex. Images are reviewed in the axial, sagittal, and coronal planes. 3-D MIPS images are created and assessed. IV contrast was administered without complication. All measurements were obtained according to NASCET criteria. A dose lowering technique was utilized adhering to the principles of ALARA. CT DOSE: 1150.67 mGy.cm FINDINGS: CT BRAIN: There is no acute intracranial hemorrhage, midline shift, hydrocephalus, intracranial mass, territorial ischemia or abnormal extra-axial collections. No abnormal intra-axial or extra-axial enhancement. Involutional changes with chronic microvascular ischemic disease redemonstrated. Senescent calcifications of the basal ganglia. Mastoid air cells and middle ear cavities are clear. No calvarial fracture. Postoperative changes of the paranasal sinuses. CT ANGIOGRAM OF THE HEAD AND NECK: Three-vessel morphology of the thoracic aortic arch. Patency of the innominate and image subclavian arteries. The common and internal carotid arteries are patent. The bilateral anterior and middle cerebral arteries are also patent. Dominant left vertebral artery. The vertebrobasilar system and posterior cerebral arteries are widely patent. There is no aneurysm, high-grade stenosis, or proximal branch occlusion identified. Dural sinuses appear patent. Multinodular thyroid goiter. Lung apices are clear. Unremarkable soft tissues. No acute fracture. IMPRESSION: 1. No acute intracranial abnormality. 2. Unremarkable CTA of the head and neck. ACT 112: Negative or not required by law. The above report was generated using voice recognition software. It may contain grammatical, syntax or spelling errors. Electronically signed by: Iván Genao M.D. 08/21/2023 2:18 PM Neck CTA 08/21/23 13:53 CT angio head w con, CT angio neck with con, CT head/brain wo con CLINICAL HISTORY: 82 years-old Male with neuro deficit, acute stroke suspected. Acute stroke like symptoms COMPARISON STUDY: Brain MRI 11/09/2022 TECHNIQUE: Unenhanced axial CT scan of the brain is performed. Subsequently, following the IV administration of 117 cc of Optiray, CT angiogram of the head and neck was performed from the aortic arch to the skull apex. Images are reviewed in the axial, sagittal, and coronal planes. 3-D MIPS images are created and assessed. IV contrast was administered without complication. All measurements were obtained according to NASCET criteria. A dose lowering technique was utilized adhering to the principles of ALARA. CT DOSE: 1150.67 mGy.cm FINDINGS: CT BRAIN: There is no acute intracranial hemorrhage, midline shift, hydrocephalus, intracranial mass, territorial ischemia or abnormal extra-axial collections. No abnormal intra-axial or extra-axial enhancement. Involutional changes with chronic microvascular ischemic disease redemonstrated. Senescent calcifications of the basal ganglia. Mastoid air cells and middle ear cavities are clear. No calvarial fracture. Postoperative changes of the paranasal sinuses. CT ANGIOGRAM OF THE HEAD AND NECK: Three-vessel morphology of the thoracic aortic arch. Patency of the innominate and image subclavian arteries. The common and internal carotid arteries are patent. The bilateral anterior and middle cerebral arteries are also patent. Dominant left vertebral artery. The vertebrobasilar system and posterior cerebral arteries are widely patent. There is no aneurysm, high-grade stenosis, or proximal branch occlusion identified. Dural sinuses appear patent. Multinodular thyroid goiter. Lung apices are clear. Unremarkable soft tissues. No acute fracture. IMPRESSION: 1. No acute intracranial abnormality. 2. Unremarkable CTA of the head and neck. ACT 112: Negative or not required by law. The above report was generated using voice recognition software. It may contain grammatical, syntax or spelling errors. Electronically signed by: Iván Genao M.D. 08/21/2023 2:18 PM Brain MRI 08/21/23 15:10 MR brain wo con HISTORY: 82 years-old Male stroke like symptoms acute stroke like symptoms COMPARISON: Head CT exam, brain MRI 11/09/2022 TECHNIQUE: Multiplanar multisequence MRI of brain was obtained without the use of IV contrast. FINDINGS: No acute or subacute territorial infarct. 7 mm acute cortically-based infarct in the posterior left temporal lobe, image 13 series 4. No acute intracranial hemorrhage, midline shift, abnormal extra axial collection, hydrocephalus or intra-axial mass. Senescent mineralization of the basal area. Subcentimeter blooming artifact within the left parietal lobe may represent hemosiderin. There are a few additional punctate foci of blooming artifact noted within the cerebellum. Involutional changes with mild T2/FLAIR hyperintense foci throughout the white matter suggestive of chronic microvascular ischemic disease. Cerebral venous sinuses and major arterial flow voids appear patent. The skull, orbits and soft tissues are unremarkable. Minimal polypoid mucosal thickening of the left maxillary sinus. IMPRESSION: 1. Subcentimeter acute left posterior temporal lobe infarct. 2. No acute intracranial hemorrhage or midline shift. ACT 112: Negative or not required by law. The above report was generated using voice recognition software. It may contain grammatical, syntax or spelling errors. Electronically signed by: Iván Genao M.D. 08/21/2023 5:36 PM Discharge Plan Visit Data Chief Complaint: TIA Symptoms ED Provider: Bert Bustamante Discharge Problem: Ischemic cerebrovascular accident (CVA) Patient Disposition: Being Evaluated by Hospitalist Discharge Instructions Interventions: ED Discharge Assessment Last Done: 08/21/23 17:53
--- NOTE | 2023-08-21 14:20 | CT Scan Report ---
CT angio head w con, CT angio neck with con, CT head/brain wo con CLINICAL HISTORY: 82 years-old Male with neuro deficit, acute stroke suspected. Acute stroke like symptoms COMPARISON STUDY: Brain MRI 11/09/2022 TECHNIQUE: Unenhanced axial CT scan of the brain is performed. Subsequently, following the IV adminis tration of 117 cc of Optiray, CT angiogram of the head and neck was performed from the aortic arch to the skull apex. Images are reviewed in the axial, sagittal, and coronal planes. 3-D MIPS images are created and assessed. IV contrast was administered without complication. All measurements were obtain ed according to NASCET criteria. A dose lowering technique was utilized adhering to the principles of ALARA. CT DOSE: 1150.67 mGy.cm FINDINGS: CT BRAIN: There is no acute intracranial hemorrhage, midline shift, hydrocephalus, intracranial mass, territori al ischemia or abnormal extra-axial collections. No abnormal intra-axial or extra-axial enhancement. Involutional changes with chronic microvascular ischemic disease redemonstrated. Senescent calcificat ions of the basal ganglia. Mastoid air cells and middle ear cavities are clear. No calvarial fracture . Postoperative changes of the paranasal sinuses. CT ANGIOGRAM OF THE HEAD AND NECK: Three-vessel morphology of the thoracic aortic arch. Patency of the innominate and image subclavian a rteries. The common and internal carotid arteries are patent. The bilateral anterior and middle cereb ral arteries are also patent. Dominant left vertebral artery. The vertebrobasilar system and posterio r cerebral arteries are widely patent. There is no aneurysm, high-grade stenosis, or proximal branch occlusion identified. Dural sinuses appear patent. Multinodular thyroid goiter. Lung apices are clear. Unremarkable soft tissues. No acute fracture. IMPRESSION: 1. No acute intracranial abnormality. 2. Unremarkable CTA of the head and neck. ACT 112: Negative or not required by law. The above report was generated using voice recognition software. It may contain grammatical, syntax o r spelling errors. Electronically signed by: Iván Genao M.D. 08/21/2023 2:18 PM
[2023-08-21 14:27] LABS: Basophils # (auto) 0.03 K/uL (0.00-0.20); Basophils % (auto) 0.5 %; Eosinophils # (auto) 0.05 K/uL (0.00-0.50); Eosinophils % (auto) 0.9 %; Hematocrit (blood only) 41.5 % (42.0-52.0); Hemoglobin 13.8 g/dl (14.0-18.0); Immature Granulocytes # (auto) 0.01 K/uL (0.01-0.20); Immature Granulocytes % (auto) 0.2 %; Lymphocytes # (auto) 0.94 K/uL (1.20-3.40); Lymphocytes % (auto) 16.8 %; Mean Corpuscular Hemoglobin 29.6 pg (25.0-34.0); Mean Corpuscular Hgb Conc 33.3 g/dL (32.0-36.0); Mean Corpuscular Volume 88.9 fL (80.0-100.0); Monocytes # (auto) 0.47 K/uL (0.11-0.59); Monocytes % (auto) 8.4 %; Neutrophils # (auto) 4.08 K/uL (1.40-6.50); Neutrophils % (auto) 73.2 %; Platelet Count 175 K/uL (130-400); RDW Coefficient of Variation 13.2 % (11.5-14.5); RDW Standard Deviation 43.3 fL (36.4-46.3); Red Blood Count 4.67 M/uL (4.70-6.10); White Blood Count 5.58 K/ul (4.8-10.8)
[2023-08-21 14:40] LABS: INR 1.1 (0.9-1.1); Partial Thromboplastin Ratio 1.1; Partial Thromboplastin Time 31 Seconds (21-31); Prothrombin Time 11.5 Seconds (9.0-12.0)
[2023-08-21 14:49] LABS: Albumin Globulin Ratio 1.7 (0.9-2); Albumin Level 3.8 gm/dl (3.4-5.0); BUN Creatinine Ratio 20.4 (10-20); Bilirubin,Total 0.5 mg/dl (0.2-1.0); Calcium 8.6 mg/dl (8.6-10.3); Creatinine Clr Calc Pharmacy 60.9 ml/min; Est GFR (African American) 69.8 ml/min; Est GFR (Non-African American) 60.2 ml/min; Globulin 2.3 gm/dl (2.5-4.0); Potassium 4.4 mmol/L (3.5-5.1); Total Protein 6.1 gm/dl (6.0-8.3)
[2023-08-21] MEDS ORDERED: MAGNESIUM SULFATE / D5W 1 GM/100 ML BAG IV STA (14:51)
[2023-08-21] MEDS ORDERED: SODIUM CHLORIDE 0.9% 250 ML IV ONE (14:51)
[2023-08-21] MEDS ORDERED: ASPIRIN CHEW 324 MG PO STA (14:54)
[2023-08-21 14:55] LABS: Troponin I High Sensitivity 38.7 pg/ml (0-20)
--- NOTE | 2023-08-21 15:12 | XRay Report ---
XR chest 1V portable HISTORY: 82 years-old Male neuro deficit, acute stroke suspected acute strokelike symptoms COMPARISON: 07/14/2012 TECHNIQUE: AP view of the chest FINDINGS: Cardiac silhouette is enlarged. No pneumothorax, pleural effusion or airspace consolidation. Mild chr onic central coarsening. There are multiple epicardial pacer wires. Cardiac valvular prosthesis. Bone s appear grossly intact. IMPRESSION: No acute process. ACT 112: Negative or not required by law. The above report was generated using voice recognition software. It may contain grammatical, syntax o r spelling errors. Electronically signed by: Iván Genao M.D. 08/21/2023 3:10 PM
--- NOTE | 2023-08-21 15:25 | History & Physical Report ---
Date of Service August 21, 2023 Assessment & Plan (1) Ischemic cerebrovascular accident (CVA): (2) Right foot drop: (3) Peripheral neuropathy: (4) HTN (hypertension): (5) History of mitral valve repair: (6) Hypertension: (7) Marginal zone B-cell lymphoma: (8) Atrial flutter: (9) Chronic anticoagulation: Plan Right upper and lower extremity weakness/presumptive CVA/hypertension- The patient will be admitted to telemetry for serial cardiac enzymes, serial EKG's, cardiac rhythm monitoring and a 2-D echocardiogram with Dopplers. CT head negative, CTA head and neck negative MRI brain ordered and pending Stroke without tPA order set Evaluated today as a stroke alert, with telestroke neurology advising no thrombolytics due to history of present Eliquis use Given aspirin 324 mg chewable now Hold Eliquis until following MRI NSS + KCl 20 mill equivalents at 80 mL/h Zofran 4 mg IV every 6 hours as needed Acetaminophen 1 g IV every 8 hours as needed for mild pain or fever N.p.o. until assessed by speech therapy Consult PT/OT/speech Permissive hypertension Right foot drop is known to neurology and chronic Consult his neurologist Dr. Dyllan Baldwin Atrial flutter/hypertension- Follow on telemetry Status post cardioversion on 08/04/2022 To have echocardiogram assessed by his outcomes manager Dr. Acevedo Decision to restart Eliquis to be determined by cardiology and neurology Lopressor 5 mg IV every 4 hours as needed for heart rate greater than 110 BPH with LUTS- Hold tamsulosin until able to take oral medications Hyperlipidemia- Resume rosuvastatin when able to take p.o. Self reported anaphylaxis to IV contrast dye- Per ED protocol was given hydrocortisone 200 mg IV x 1 before and Benadryl 25 mg IV after study History of Present Illness Chief Complaint: The patient presents to the emergency department for evaluation of strokelike symptoms involving right leg and arm weakness and numbness that began around 10:00 this morning, resolved spontaneously after few minutes, and then recurred again around 1:45 this afternoon. The afternoon additional symptoms included right-sided facial droop, difficulty speaking, right arm and right leg weakness. In the emergency department at this time, the patient reports that all symptoms appear to be improving but not back to normal Primary Care Provider: Trenton Rodriguez MD The patient is an 82-year-old male with a past medical history including atrial flutter status post cardioversion 08/04/2022 on Eliquis, chronic right foot drop, peripheral neuropathy, hypertension, history of mitral valve repair, hematoma, parotiditis, BPH, and lymphoma in remission. He presents to the emergency department with symptoms as noted above, all of which appear to be improving at this time. He was evaluated as a stroke alert, and underwent CT head, CTA head and neck all of which showed no acute findings. He was assessed by telestroke neurology, and due to being on Eliquis, was thought to not be a candidate for thrombolytics. Recommendation by telestroke neurology was to give patient aspirin, hold Eliquis until after MRI results. Of note, patient did not take his Eliquis this morning Allergies Allergy/AdvReac Type Severity Reaction Status Date / Time aspirin AdvReac Mild GI UPSET Unverified 07/22/23 12:58 Latex Allergy Unknown Unknown Uncoded 07/22/23 12:58 Home Medications Medication Instructions Recorded Confirmed Type ascorbate calcium (vitamin C) 500 500 mg PO QAM 06/12/20 08/21/23 History mg tablet levothyroxine 75 mcg capsule 75 mcg PO QAM 06/12/20 08/21/23 History metoprolol succinate 25 mg capsule 12.5 mg PO QPM 06/12/20 08/21/23 History sprinkle, ext. release 24 hr apixaban 5 mg tablet (Eliquis) 5 mg PO BID 07/30/22 08/21/23 History coenzyme Q10 100 mg capsule (Co 100 mg PO QAM 07/30/22 08/21/23 History Q-10) lactobacillus combination no.4 3 3,000 mmu cells PO QAM 07/30/22 08/21/23 History billion cell capsule (Probiotic) multivitamin 1 tab PO QAM 07/30/22 08/21/23 History tamsulosin 0.4 mg capsule 0.4 mg PO HS 07/30/22 08/21/23 History B-complex with vitamin C 1 cap PO DAILY 07/22/23 08/21/23 History rosuvastatin 10 mg tablet 10 mg PO DAILY 07/22/23 08/21/23 History calcium carbonate 500 mg calcium 500 mg PO QAM 08/21/23 08/21/23 History (1,250 mg) tablet Past Med/Surg History Medical History (Updated 08/21/23 @ 16:56 by Phu Lawrence MD) Chronic anticoagulation Marginal zone B-cell lymphoma DR MONIQUE [facility]- DX END OF 2020- TREATED W/ IMMUNE THERAPY INFUSIONS- IN REMISSION Atrial flutter Environmental allergies has not needed inhaler > 1yr Basal cell carcinoma (BCC) Mitral valve regurgitation Surgical History History of esophagogastroduodenoscopy (EGD) Hx of colonoscopy History of back surgery - 2020 Hx of cardiac catheterization 2011- [place]- no stents History of kidney surgery History of mitral valve repair [facility] W/ DR ACEVEDO, LAST VISIT 06/2022 History of sinus surgery History of hernia repair Social History Smoking Status: Former smoker Tobacco Type: Cigarettes Second Hand Exposure: No; Do You Dip or Chew Tobacco: No; Hx Alcohol Use: Yes (occasionally) Hx Substance Use: No Preferred Language: [place] Communication Ability: Effective Senior Portfolio Analyst Required: No Beliefs That Will Affect Care: None marital status: Current Living Situation: Spouse current occupational status: retired Feels Safe at Home: Yes Assistive Devices: Glasses Review of Systems Review of Systems: The patient denies chest pain, palpitations, shortness of breath, dyspnea on exertion, cough, lower extremity swelling, sore throat, fevers, chills, sweats, weight change, fatigue, nausea, vomiting, diarrhea , constipation, abdominal pain, pelvic pain, blood in urine or stool, dysuria, urinary frequency or urgency, loss of consciousness, rash, abnormal bruising or bleeding, focal or generalized weakness, numbness or tingling in left arm or leg, generalized arthralgias or myalgias, back or neck pain, or night sweats. The review of systems is otherwise negative other than for that already noted above, and at least 10 systems have been reviewed. Physical Exam Physical Exam: The patient is awake, alert and oriented 3, well developed and well nourished, normocephalic and atraumatic, lying in bed and in no acute distress. HEENT--PERRL, EOMI, mucous membranes and oropharynx normal Neck--supple. No JVD. No bruits. Thyroid normal, trachea midline, no adenopathy. Heart--normal S1 and S2. No murmurs, rubs or gallops. Lungs--clear bilaterally, no respiratory distress, no accessory muscle use. Abdomen--normal bowel sounds and soft. Nontender. Nondistended, no hernias or masses, no organomegaly. Extremities--no cyanosis or clubbing. No edema. There are good distal pulses b/l. Dermatologic--normal skin turgor, normal color, no abnormal lymph nodes, no rash. Neurologic--right facial droop, speech is slowed. Strength 4+ out of 5 on the right upper and right lower extremity. Right foot drop noted is chronic Rheumatologic--limited due to neurologic changes Psychiatric--normal affect. Results & Data Results & Data Vital Signs (Past 12 Hours) Vital Signs Temp Pulse Resp BP Pulse Ox O2 Del Method 08/21/23 14:30 58 L 08/21/23 13:49 36.7 C 61 20 119/92 95 Room Air Laboratory Results Laboratory Results WBC 5.58 K/ul (4.8-10.8) 08/21/23 14:17 RBC 4.67 M/uL (4.70-6.10) L 08/21/23 14:17 Hgb 13.8 g/dl (14.0-18.0) L 08/21/23 14:17 Hct 41.5 % (42.0-52.0) L 08/21/23 14:17 MCV 88.9 fL (80.0-100.0) 08/21/23 14:17 MCH 29.6 pg (25.0-34.0) 08/21/23 14:17 MCHC 33.3 g/dL (32.0-36.0) 08/21/23 14:17 RDW Std Deviation 43.3 fL (36.4-46.3) 08/21/23 14:17 RDW Coeff of Selena 13.2 % (11.5-14.5) 08/21/23 14:17 Plt Count 175 K/uL (130-400) 08/21/23 14:17 MPV 10.0 fL (9.4-12.4) 08/21/23 14:17 Immature Gran % (Auto) 0.2 % 08/21/23 14:17 Neut % (Auto) 73.2 % 08/21/23 14:17 Lymph % (Auto) 16.8 % 08/21/23 14:17 [place] % (Auto) 8.4 % 08/21/23 14:17 Eos % (Auto) 0.9 % 08/21/23 14:17 Baso % (Auto) 0.5 % 08/21/23 14:17 Neut # (Auto) 4.08 K/uL (1.40-6.50) 08/21/23 14:17 Lymph # (Auto) 0.94 K/uL (1.20-3.40) L 08/21/23 14:17 [place] # (Auto) 0.47 K/uL (0.11-0.59) 08/21/23 14:17 Eos # (Auto) 0.05 K/uL (0.00-0.50) 08/21/23 14:17 Baso # (Auto) 0.03 K/uL (0.00-0.20) 08/21/23 14:17 Immature Gran # (Auto) 0.01 K/uL (0.01-0.20) 08/21/23 14:17 PT 11.5 Seconds (9.0-12.0) 08/21/23 14:17 INR 1.1 (0.9-1.1) 08/21/23 14:17 APTT 31 Seconds (21-31) 08/21/23 14:17 PTT Ratio 1.1 08/21/23 14:17 Sodium 134 mmol/L (136-145) L 08/21/23 14:17 Potassium 4.4 mmol/L (3.5-5.1) 08/21/23 14:17 Chloride 102 mmol/L (98-107) 08/21/23 14:17 Carbon Dioxide 26 mmol/L (21-32) 08/21/23 14:17 Anion Gap 6 (3-11) 08/21/23 14:17 BUN 23 mg/dl (6-23) 08/21/23 14:17 Creatinine 1.13 mg/dl (0.6-1.4) 08/21/23 14:17 Est Cr Clr Drug Dosing 60.9 ml/min 08/21/23 14:17 Est GFR ( Amer) 69.8 ml/min 08/21/23 14:17 Est GFR (Non-Af Amer) 60.2 ml/min 08/21/23 14:17 BUN/Creatinine Ratio 20.4 (10-20) H 08/21/23 14:17 Glucose 100 mg/dl (70-99(Fasting)) H 08/21/23 14:17 POC Glucose 110 mg/dl (70-99) H 08/21/23 14:24 Calcium 8.6 mg/dl (8.6-10.3) 08/21/23 14:17 Magnesium 2.0 mg/dl (1.7-2.4) 08/21/23 14:17 Total Bilirubin 0.5 mg/dl (0.2-1.0) 08/21/23 14:17 AST 23 U/L (13-39) 08/21/23 14:17 ALT 21 U/L (7-52) 08/21/23 14:17 Alkaline Phosphatase 112 U/L (34-104) H 08/21/23 14:17 Troponin I High Sens 38.7 pg/ml (0-20) H 08/21/23 14:17 Total Protein 6.1 gm/dl (6.0-8.3) 08/21/23 14:17 Albumin 3.8 gm/dl (3.4-5.0) 08/21/23 14:17 Globulin 2.3 gm/dl (2.5-4.0) L 08/21/23 14:17 Albumin/Globulin Ratio 1.7 (0.9-2) 08/21/23 14:17 Impressions Chest X-Ray 08/21/23 13:53 XR chest 1V portable HISTORY: 82 years-old Male neuro deficit, acute stroke suspected acute strokelike symptoms COMPARISON: 07/14/2012 TECHNIQUE: AP view of the chest FINDINGS: Cardiac silhouette is enlarged. No pneumothorax, pleural effusion or airspace consolidation. Mild chronic central coarsening. There are multiple epicardial pacer wires. Cardiac valvular prosthesis. Bones appear grossly intact. IMPRESSION: No acute process. ACT 112: Negative or not required by law. The above report was generated using voice recognition software. It may contain grammatical, syntax or spelling errors. Electronically signed by: Iván Genao M.D. 08/21/2023 3:[address] 08/21/23 13:53 CT angio head w con, CT angio neck with con, CT head/brain wo con CLINICAL HISTORY: 82 years-old Male with neuro deficit, acute stroke suspected. Acute stroke like symptoms COMPARISON STUDY: Brain MRI 11/09/2022 TECHNIQUE: Unenhanced axial CT scan of the brain is performed. Subsequently, following the IV administration of 117 cc of Optiray, CT angiogram of the head and neck was performed from the aortic arch to the skull apex. Images are reviewed in the axial, sagittal, and coronal planes. 3-D MIPS images are created and assessed. IV contrast was administered without complication. All measurements were obtained according to NASCET criteria. A dose lowering technique was utilized adhering to the principles of ALARA. CT DOSE: 1150.67 mGy.cm FINDINGS: CT BRAIN: There is no acute intracranial hemorrhage, midline shift, hydrocephalus, intracranial mass, territorial ischemia or abnormal extra-axial collections. No abnormal intra-axial or extra-axial enhancement. Involutional changes with chronic microvascular ischemic disease redemonstrated. Senescent calcifications of the basal ganglia. Mastoid air cells and middle ear cavities are clear. No calvarial fracture. Postoperative changes of the paranasal sinuses. CT ANGIOGRAM OF THE HEAD AND NECK: Three-vessel morphology of the thoracic aortic arch. Patency of the innominate and image subclavian arteries. The common and internal carotid arteries are patent. The bilateral anterior and middle cerebral arteries are also patent. Dominant left vertebral artery. The vertebrobasilar system and posterior cerebral arteries are widely patent. There is no aneurysm, high-grade stenosis, or proximal branch occlusion identified. Dural sinuses appear patent. Multinodular thyroid goiter. Lung apices are clear. Unremarkable soft tissues. No acute fracture. IMPRESSION: 1. No acute intracranial abnormality. 2. Unremarkable CTA of the head and neck. ACT 112: Negative or not required by law. The above report was generated using voice recognition software. It may contain grammatical, syntax or spelling errors. Electronically signed by: Iván Genao M.D. 08/21/2023 2:18 PM Head CTA 08/21/23 13:53 CT angio head w con, CT angio neck with con, CT head/brain wo con CLINICAL HISTORY: 82 years-old Male with neuro deficit, acute stroke suspected. Acute stroke like symptoms COMPARISON STUDY: Brain MRI 11/09/2022 TECHNIQUE: Unenhanced axial CT scan of the brain is performed. Subsequently, following the IV administration of 117 cc of Optiray, CT angiogram of the head and neck was performed from the aortic arch to the skull apex. Images are reviewed in the axial, sagittal, and coronal planes. 3-D MIPS images are created and assessed. IV contrast was administered without complication. All measurements were obtained according to NASCET criteria. A dose lowering technique was utilized adhering to the principles of ALARA. CT DOSE: 1150.67 mGy.cm FINDINGS: CT BRAIN: There is no acute intracranial hemorrhage, midline shift, hydrocephalus, intracranial mass, territorial ischemia or abnormal extra-axial collections. No abnormal intra-axial or extra-axial enhancement. Involutional changes with chronic microvascular ischemic disease redemonstrated. Senescent calcifications of the basal ganglia. Mastoid air cells and middle ear cavities are clear. No calvarial fracture. Postoperative changes of the paranasal sinuses. CT ANGIOGRAM OF THE HEAD AND NECK: Three-vessel morphology of the thoracic aortic arch. Patency of the innominate and image subclavian arteries. The common and internal carotid arteries are patent. The bilateral anterior and middle cerebral arteries are also patent. Dominant left vertebral artery. The vertebrobasilar system and posterior cerebral arteries are widely patent. There is no aneurysm, high-grade stenosis, or proximal branch occlusion identified. Dural sinuses appear patent. Multinodular thyroid goiter. Lung apices are clear. Unremarkable soft tissues. No acute fracture. IMPRESSION: 1. No acute intracranial abnormality. 2. Unremarkable CTA of the head and neck. ACT 112: Negative or not required by law. The above report was generated using voice recognition software. It may contain grammatical, syntax or spelling errors. Electronically signed by: Iván Genao M.D. 08/21/2023 2:18 PM Neck CTA 08/21/23 13:53 CT angio head w con, CT angio neck with con, CT head/brain wo con CLINICAL HISTORY: 82 years-old Male with neuro deficit, acute stroke suspected. Acute stroke like symptoms COMPARISON STUDY: Brain MRI 11/09/2022 TECHNIQUE: Unenhanced axial CT scan of the brain is performed. Subsequently, following the IV administration of 117 cc of Optiray, CT angiogram of the head and neck was performed from the aortic arch to the skull apex. Images are reviewed in the axial, sagittal, and coronal planes. 3-D MIPS images are created and assessed. IV contrast was administered without complication. All measurements were obtained according to NASCET criteria. A dose lowering techni que was utilized adhering to the principles of ALARA. CT DOSE: 1150.67 mGy.cm FINDINGS: CT BRAIN: There is no acute intracranial hemorrhage, midline shift, hydrocephalus, intracranial mass, territorial ischemia or abnormal extra-axial collections. No abnormal intra-axial or extra-axial enhancement. Involutional changes with chronic microvascular ischemic disease redemonstrated. Senescent calcifications of the basal ganglia. Mastoid air cells and middle ear cavities are clear. No calvarial fracture. Postoperative changes of the paranasal sinuses. CT ANGIOGRAM OF THE HEAD AND NECK: Three-vessel morphology of the thoracic aortic arch. Patency of the innominate and image subclavian arteries. The common and internal carotid arteries are patent. The bilateral anterior and middle cerebral arteries are also patent. Dominant left vertebral artery. The vertebrobasilar system and posterior cerebral arteries are widely patent. There is no aneurysm, high-grade stenosis, or proximal branch occlusion identified. Dural sinuses appear patent. Multinodular thyroid goiter. Lung apices are clear. Unremarkable soft tissues. No acute fracture. IMPRESSION: 1. No acute intracranial abnormality. 2. Unremarkable CTA of the head and neck. ACT 112: Negative or not required by law. The above report was generated using voice recognition software. It may contain grammatical, syntax or spelling errors. Electronically signed by: Iván Genao M.D. 08/21/2023 2:18 PM Code Status & VTE Plan Code Status Full code VTE Prophylaxis Plan VTE Prophylaxis will be ordered: Yes PG Care Time/CCT Total # of Minutes Spent Total Time Spent with Patient: Total time spent is greater than 50% in coordination of care (as documented) at patient's floor/unit and/or counseling patient: Coding Level of Care Code 76396 INT INP/OBS CARE 3/75MIN Diagnoses Ischemic cerebrovascular accident (CVA) I63.9 Right foot drop M21.371 Peripheral neuropathy G62.9 HTN (hypertension) I10 History of mitral valve repair Z98.890 Marginal zone B-cell lymphoma C85.80 Atrial flutter I48.92 Chronic anticoagulation Z79.01
[2023-08-21] MEDS ORDERED: diphenhydrAMINE 50 MG/ML VIAL IV STA (15:26)
[2023-08-21] MEDS ORDERED: METOPROLOL TARTRATE 1 MG/ML VIAL IV PRN (17:00)
--- NOTE | 2023-08-21 17:38 | Magnetic Resonance Report ---
MR brain wo con HISTORY: 82 years-old Male stroke like symptoms acute stroke like symptoms COMPARISON: Head CT exam, brain MRI 11/09/2022 TECHNIQUE: Multiplanar multisequence MRI of brain was obtained without the use of IV contrast. FINDINGS: No acute or subacute territorial infarct. 7 mm acute cortically-based infarct in the posterior left t emporal lobe, image 13 series 4. No acute intracranial hemorrhage, midline shift, abnormal extra axia l collection, hydrocephalus or intra-axial mass. Senescent mineralization of the basal area. Subcenti meter blooming artifact within the left parietal lobe may represent hemosiderin. There are a few junior tional punctate foci of blooming artifact noted within the cerebellum. Involutional changes with mild T2/FLAIR hyperintense foci throughout the white matter suggestive of c hronic microvascular ischemic disease. Cerebral venous sinuses and major arterial flow voids appear p atent. The skull, orbits and soft tissues are unremarkable. Minimal polypoid mucosal thickening of th e left maxillary sinus. IMPRESSION: 1. Subcentimeter acute left posterior temporal lobe infarct. 2. No acute intracranial hemorrhage or midline shift. ACT 112: Negative or not required by law. The above report was generated using voice recognition software. It may contain grammatical, syntax o r spelling errors. Electronically signed by: Iván Genao M.D. 08/21/2023 5:36 PM
[2023-08-21] MEDS ORDERED: diphenhydrAMINE 50 MG/ML VIAL IV ONE (17:59)
[2023-08-21] MEDS ORDERED: ONDANSETRON INJ 2 MG/ML 2 ML VIAL IV PRN (18:30)
[2023-08-21] MEDS ORDERED: PHARMACIST DISCHARGE MED REC CONSULT PRN (18:30)
[2023-08-21] MEDS: NSS + 20MEQ KCL 20 MEQ/1,000 ML BAG IV SCH (20:32)
[2023-08-21] MEDS: ACETAMINOPHEN 1,000 MG/100 ML VIAL IV PRN (23:43)
[2023-08-22 06:22] LABS: BUN Creatinine Ratio 17.8 (10-20); Calcium 8.2 mg/dl (8.6-10.3); Chol HDL Ratio 2.4 (0-5); Creatinine Clr Calc Pharmacy 60.2 ml/min; Est GFR (African American) 74.5 ml/min; Est GFR (Non-African American) 64.3 ml/min; Potassium 4.5 mmol/L (3.5-5.1)
[2023-08-22 06:29] LABS: Basophils # (auto) 0.04 K/uL (0.00-0.20); Basophils % (auto) 0.5 %; Eosinophils # (auto) 0.06 K/uL (0.00-0.50); Eosinophils % (auto) 0.8 %; Immature Granulocytes # (auto) 0.03 K/uL (0.01-0.20); Immature Granulocytes % (auto) 0.4 %; Lymphocytes # (auto) 1.63 K/uL (1.20-3.40); Lymphocytes % (auto) 21.8 %; Mean Corpuscular Volume 85.8 fL (80.0-100.0); Mean Platelet Volume 10.4 fL (9.4-12.4); Monocytes # (auto) 0.63 K/uL (0.11-0.59); Monocytes % (auto) 8.4 %; Neutrophils # (auto) 5.07 K/uL (1.40-6.50); Neutrophils % (auto) 68.1 %; Platelet Count 193 K/uL (130-400); RDW Coefficient of Variation 13.2 % (11.5-14.5); RDW Standard Deviation 41.6 fL (36.4-46.3); Red Blood Count 4.66 M/uL (4.70-6.10); White Blood Count 7.46 K/ul (4.8-10.8)
[2023-08-22 07:28] LABS: Estimated Average Glucose 123 mg/dl; Hemoglobin A1C 5.9 % (4.5-5.6)
--- NOTE | 2023-08-22 07:41 | Hospitalist Progress Note ---
Date of Service August 22, 2023 Assessment & Plan (1) Acute CVA (cerebrovascular accident): Plan: MRI with small temporal infarct No evidence of infarct on CT scan. No appreciated abnormality on CTA of the head and neck. Neurology consulted. Appreciate Dr. Baldwin's input. Anticipate resuming patient's Eliquis after CT scan of the head this afternoon at 4 PM. Will also anticipate discharging patient on aspirin 81 mg p.o. daily Continue to allow for permissive hypertension pending repeat CT head this afternoon Systolic pressure currently 170. If this approaches 180, will resume oral medications prior to CT head (2) Atrial flutter: Plan: No appreciation of flutter on examination Rate controlled in the 60s Eliquis has been held pending workup for acute CVA. Anticipate resuming Eliquis this afternoon Continue statin, beta-anjel on discharge (3) Chronic anticoagulation: Plan: Secondary to a flutter. Please see above. (4) Marginal zone B-cell lymphoma: Plan: No acute issues. Review of chart indicates the patient is most likely in remission Continue outpatient follow-up with [facility] oncology (5) Right foot drop: Plan: Activity restrictions per nursing Not related to acute admission (6) Hypertension: Plan: All medications held pending workup for stroke Resume on discharge Current blood pressure 170/86 (7) History of mitral valve repair: Plan: Echocardiogram pending Continue anticoagulation on discharge (8) On deep vein thrombosis (DVT) prophylaxis: Plan: Continue Eliquis once cleared for CVA Continue with ALOK hose Increase activity as needed Admission and Anticipated Discharge Date Admission Date: August 21, 2023 Subjective Attending: Dr. Lobo Today an 82-year-old male that was admitted yesterday for hypertension versus CVA. Patient had right upper and lower extremity weakness. CT of the head was negative. CTA of the head and neck was negative. Chronic history of right foot drop. Atrial flutter/hypertension. Patient was on telemetry unit. MRI of the brain with subcentimeter acute left posterior temporal lobe infarct. No acute intracranial hemorrhage or midline shift. Echocardiogram is currently being performed. Await results. Patient denies any residual effect. He was a little bit weak on his feet yesterday. He has not tried to walk again today. No focal deficits that he is aware of. Patient denies headache, fever, chills, any evidence of infection. No chest pain or tightness. No awareness of unusual arrhythmias. Review of Systems 2 Review of Systems: A total of 10 systems was reviewed and is negative other than as listed in the HPI Physical Exam 2 Physical Exam: GENERAL : No acute distress EYES: No icterus, gaze conjugate NOSE: No evidence of epistaxis MOUTH: No lesions or candidiasis NECK: Supple LUNGS: CTA B/L, no wheezes, rales or rhonchi HEART: Regular, rate controlled in the 60s. No appreciation of arrhythmia or ectopy ABDOMEN: Soft, NT, ND, BS Present EXTREMITIES: No LE edema, pedal pulses intact NEURO: A&OX3. Pupils equal round and react to light. Tongue is midline. No residual weaknesses. Patient strength is equal bilaterally left and right and upper and lower. Toes are downgoing bilaterally. Cerebellar function appears to be intact with rapid alternating movements, [id number]-[id number], and akvdbi-[id number]-rcum. No slurred speech. No appreciation of facial droop. Patient denies any difficulty with swallowing. Results & Data Results & Data Vital Signs (Past 12 Hours) Vital Signs Temp Pulse Pulse Resp BP BP Pulse Ox 08/22/23 03:26 58 L 08/22/23 03:05 36.3 C L 58 L 16 157/80 H 98 08/22/23 00:00 58 L 18 132/75 93 08/21/23 23:20 62 08/21/23 22:00 59 L 24 94 08/21/23 20:55 63 08/21/23 20:12 08/21/23 20:12 57 L 14 131/89 93 08/21/23 20:00 60 21 94 08/21/23 19:47 62 23 131/89 94 Pulse Ox O2 Del Method O2 Del Method 08/22/23 03:26 08/22/23 03:05 Room Air 08/22/23 00:00 08/21/23 23:20 08/21/23 22:00 08/21/23 20:55 08/21/23 20:12 94 Room Air 08/21/23 20:12 Room Air 08/21/23 20:00 08/21/23 19:47 Laboratory Results Abnormal lab results 08/21/23 08/21/23 08/21/23 Range/Units 14:17 14:24 16:14 RBC 4.67 L (4.70-6.10) M/uL Hgb 13.8 L (14.0-18.0) g/dl Hct 41.5 L (42.0-52.0) % Lymph # (Auto) 0.94 L (1.20-3.40) K/uL [place] # (Auto) (0.11-0.59) K/uL Sodium 134 L (136-145) mmol/L BUN/Creatinine Ratio 20.4 H (10-20) Glucose 100 H (70-99(Fasting)) mg/dl POC Glucose 110 H (70-99) mg/dl Hemoglobin A1c (4.5-5.6) % Calcium (8.6-10.3) mg/dl Alkaline Phosphatase 112 H (34-104) U/L Troponin I High Sens 38.7 H 31.3 H (0-20) pg/ml Globulin 2.3 L (2.5-4.0) gm/dl 08/21/23 08/21/23 08/22/23 Range/Units 19:31 23:46 05:41 RBC 4.66 L (4.70-6.10) M/uL Hgb (14.0-18.0) g/dl Hct 40.0 L (42.0-52.0) % Lymph # (Auto) (1.20-3.40) K/uL [place] # (Auto) 0.63 H (0.11-0.59) K/uL Sodium (136-145) mmol/L BUN/Creatinine Ratio (10-20) Glucose (70-99(Fasting)) mg/dl POC Glucose (70-99) mg/dl Hemoglobin A1c 5.9 H (4.5-5.6) % Calcium 8.2 L (8.6-10.3) mg/dl Alkaline Phosphatase (34-104) U/L Troponin I High Sens 29.5 H 26.2 H 35.6 H (0-20) pg/ml Globulin (2.5-4.0) gm/dl 08/22/23 05:41 08/22/23 05:41 ECG Additional Comments: PG Care Time/CCT Total # of Minutes Spent Total Time Spent with Patient: Total time spent is greater than 50% in coordination of care (as documented) at patient's floor/unit and/or counseling patient: Coding Level of Care Code None Diagnoses Acute CVA (cerebrovascular accident) I63.9 Atrial flutter I48.92 Chronic anticoagulation Z79.01 Marginal zone B-cell lymphoma C85.80 Right foot drop M21.371 Hypertension I10 History of mitral valve repair Z98.890 On deep vein thrombosis (DVT) prophylaxis Z79.899 Comment No charge. Please see D/C summary this date
--- NOTE | 2023-08-22 08:45 | Neurology Consultation ---
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 Brain MRI has revealed an acute subcentimeter infarct within the left posterior temporal lobe that would explain his acute clinical presentation. CTA of the head and neck are unremarkable. The stroke could be cardioembolic, he does have a history of atrial flutter and is prescribed Eliquis, he has been compliant with this medication. His lipids are well-controlled with rosuvastatin. His hypertension has been well-controlled with metoprolol although this medication has been temporarily held to allow for permissive hypertension. This patient is hemoglobin A1c is marginally elevated which may contribute to his stroke risk. As there is no evidence of bleeding on patient CT of the head and brain MRI, would recommend restarting Eliquis. Would also recommend adding aspirin 81 mg/day to his medication regimen for further secondary stroke risk reduction. May restart his metoprolol when medically appropriate. May also restart his rosuvastatin. Follow-up with results of echocardiogram. Consultations with PT/OT/speech therapy. Given patient's minimal residual deficits, he may not require acute inpatient rehabilitation, full determination to be made by the rehab team. No further evaluation or treatment of patient's chronic right foot drop and lymphoma associated neuropathy is necessary at this time. May follow-up in neurology clinic in 2 to 3 weeks after discharge. History of Present Illness Reason for Consultation: stroke Requesting Physician: Howard Attending Physician: Ronni Lobo History of Present Illness The patient is an 82-year-old male who presented to the emergency department yesterday with acute onset right-sided weakness and difficulty speaking. His symptoms began around 10 AM but resolved within a few minutes, recurred again and route to the hospital and were characterized by right facial droop, weakness of the right arm and leg, and difficulty speaking. He has a history of atrial flutter and is compliant with Eliquis. No prior history of stroke. 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 His lymphoma has been in remission. A CT of the head including CTA of the head and neck were unremarkable. A follow-up brain MRI has revealed a subcentimeter acute left posterior temporal lobe infarct. I independently reviewed these images. He was not administered TNKase as he has been taking his Eliquis. He was given a full dose of aspirin. This morning, the patient reports near resolution of his symptoms other than a vague feeling of numbness affecting the right side of the face and head. No residual change in speech or weakness of the right arm and leg, other than his mild chronic right foot drop. Allergies Allergy/AdvReac Type Severity Reaction Status Date / Time aspirin AdvReac Mild GI UPSET Unverified 07/22/23 12:58 Latex Allergy Unknown Unknown Uncoded 07/22/23 12:58 Home Medications Medication Instructions Recorded Confirmed Type ascorbate calcium (vitamin C) 500 500 mg PO QAM 06/12/20 08/21/23 History mg tablet levothyroxine 75 mcg capsule 75 mcg PO QAM 06/12/20 08/21/23 History metoprolol succinate 25 mg capsule 12.5 mg PO QPM 06/12/20 08/21/23 History sprinkle, ext. release 24 hr apixaban 5 mg tablet (Eliquis) 5 mg PO BID 07/30/22 08/21/23 History coenzyme Q10 100 mg capsule (Co 100 mg PO QAM 07/30/22 08/21/23 History Q-10) lactobacillus combination no.4 3 3,000 mmu cells PO QAM 07/30/22 08/21/23 History billion cell capsule (Probiotic) multivitamin 1 tab PO QAM 07/30/22 08/21/23 History tamsulosin 0.4 mg capsule 0.4 mg PO HS 07/30/22 08/21/23 History B-complex with vitamin C 1 cap PO DAILY 07/22/23 08/21/23 History rosuvastatin 10 mg tablet 10 mg PO DAILY 07/22/23 08/21/23 History calcium carbonate 500 mg calcium 500 mg PO QAM 08/21/23 08/21/23 History (1,250 mg) tablet Patient History Medical History (Updated 08/22/23 @ 07:46 by Carlos Ricardo PA-C) Acute CVA (cerebrovascular accident) MRI 08/21/2023 - Subcentimeter acute left posterior temporal lobe infarct. Chronic anticoagulation Marginal zone B-cell lymphoma DR MONIQUE [employer] [facility] [employer] [facility]- DX END OF 2020- TREATED W/ IMMUNE THERAPY INFUSIONS- IN REMISSION Atrial flutter Environmental allergies has not needed inhaler > 1yr Basal cell carcinoma (BCC) Mitral valve regurgitation Surgical History History of esophagogastroduodenoscopy (EGD) Hx of colonoscopy History of back surgery 2020 Hx of cardiac catheterization 2011- [place]- no stents History of kidney surgery History of mitral valve repair [facility] - FOLLOWS W/ DR ACEVEDO, LAST VISIT 06/2022 History of sinus surgery History of hernia repair Social History Smoking Status: Former smoker Tobacco Type: Cigarettes Second Hand Exposure: No; Do You Dip or Chew Tobacco: No; Tobacco Cessation Education Requested by Patient: No Hx Alcohol Use: No Hx Substance Use: No Preferred Language: Malaysian Communication Ability: Effective Medical Clerical Assistant Required: No Beliefs That Will Affect Care: None marital status: Current Living Situation: Spouse current occupational status: retired Other Information That Helps Us Care for You: No Feels Safe at Home: Yes Safety Concerns: Feels Safe At This Time Assistive Devices: Glasses Review of Systems Constitutional: no fever and no chills Eyes: no blind spots and no diplopia Ear, Nose, Mouth, Throat: no hearing loss Respiratory: no cough and no dyspnea Cardiovascular: no chest pain and no palpitations Gastrointestinal: no nausea and no vomiting Genitourinary: no dysuria Musculoskeletal: no back pain, no neck pain and no myalgia Integumentary: no rash and no lesions Neurologic: as per Subjective / HPI Psychiatric: no depression and no anxiety Hematologic / Lymphatic: no easy bleeding and no easy bruising Exam (Neuro) Constitutional: well developed and well nourished; no acute distress Eyes: normal visual gilman by confrontation, PERRL and EOM intact bilaterally; no nystagmus Neurologic: Oriented to:: Person, Place and Time Memory: Short Term Intact and Remote Intact Attention: Span Intact and Concentration Intact Speech Fluency: negative Dysarthria or Dysfluency Speech Aphasia: negative Aphasia Fund of Knowledge: Current Events, Past History and Vocabulary Cranial Nerves: Normal II, III, IV, , V, VII (Subtle right lower facial droop noted with casual observation), VIII, IX, X, XI and XII Motor Strength: Normal Lower Extremities (Mild weakness of right foot dorsiflexion noted (chronic)) and Normal Upper Extremities Motor Tone: Normal Lower Extremities and Normal Upper Extremities Muscle Bulk/Involuntary Movements: No Involuntary Movements; negative Muscle Atrophy Sensation: Light Touch Intact and Pain/Temperature Intact; negative Proprioception Intact Coordination: negative Dysdiadochokinesia, Finger-Nose Abnormal or Heel-Dong Abnormal Deep Tendon Reflexes: Rt Triceps: 1+, Lt Triceps: 1+, Rt Biceps: 1+, Lt Biceps: 1+, Rt Brachioradialis: 1+, Lt Brachioradialis: 1+, Rt Patellar: 1+, Lt Patellar: 1+, Rt Ankle: 0 and Lt Ankle: 0 Special Tests: negative Babinski Present Details: Gait not tested Results & Data Vital Signs (Past 12 Hours) Vital Signs Temp Pulse Pulse Resp BP BP Pulse Ox 08/22/23 08:24 36.6 C 65 18 170/86 H 95 08/22/23 03:26 58 L 08/22/23 03:05 36.3 C L 58 L 16 157/80 H 98 08/22/23 00:00 58 L 18 132/75 93 08/21/23 23:20 62 08/21/23 22:00 59 L 24 94 08/21/23 20:55 63 O2 Del Method 08/22/23 08:24 Room Air 08/22/23 03:26 08/22/23 03:05 Room Air 08/22/23 00:00 08/21/23 23:20 08/21/23 22:00 08/21/23 20:55 Laboratory Results WBC 7.46, hemoglobin 14.0, hematocrit 40.0, platelet count 193, sodium 138, potassium 4.5, BUN 19, creatinine 1.07, glucose 95, hemoglobin A1c 5.9, calcium 8.2, magnesium 2.0, AST 23, ALT 21, high-sensitivity troponin 35.6, triglycerides 71, cholesterol 105, LDL 47, VLDL 14, HDL [address] of the head, CTA of the head and neck, and brain MRI are as described in the HPI. An electrocardiogram reveals sinus bradycardia, 59 bpm. Coding Level of Care Code 77589 INT INP/OBS CARE MIN Diagnoses Acute CVA (cerebrovascular accident) I63.9 Right foot drop M21.371 Peripheral neuropathy G62.9 Time Spent (min) 75
--- NOTE | 2023-08-22 09:00 | Electrocardiogram Report ---
Test Reason : Blood Pressure : / mmHG Vent. Rate : 059 BPM Atrial Rate : 059 BPM P-R Int : 192 ms QRS Dur : 114 ms QT Int : 450 ms P-R-T Axes : 086 -68 057 degrees QTc Int : 445 ms Sinus bradycardia Left anterior fascicular block Possible Old Lateral infarct Non-specific intra-ventricular conduction delay Abnormal ECG When compared with ECG of 04-AUG-2022 07:27, Premature atrial complexes are no longer Present Confirmed by Prosper Petty ([id number]) on 08/22/2023 9:00:15 AM Referred By: Minh Sampson Confirmed By:Prosper Petty
--- NOTE | 2023-08-22 09:00 | Electrocardiogram Report ---
Test Reason : Blood Pressure : / mmHG Vent. Rate : 055 BPM Atrial Rate : 055 BPM P-R Int : 200 ms QRS Dur : 126 ms QT Int : 462 ms P-R-T Axes : 032 -62 052 degrees QTc Int : 441 ms Sinus bradycardia Left anterior fascicular block Possible Old Lateral infarct Non-specific intra-ventricular conduction block Abnormal ECG When compared with ECG of 04-AUG-2022 07:27, Premature atrial complexes are no longer Present Confirmed by Prosper Petty ([id number]) on 08/22/2023 8:59:49 AM Referred By: Minh Sampson Confirmed By:Prosper Petty
[2023-08-22] MEDS: NSS + 20MEQ KCL 20 MEQ/1,000 ML BAG IV SCH (13:58)
[2023-08-22] MEDS: ACETAMINOPHEN 1,000 MG/100 ML VIAL IV PRN (13:58)
--- NOTE | 2023-08-22 16:48 | CT Scan Report ---
CT SCAN OF THE BRAIN WITHOUT IV CONTRAST CLINICAL HISTORY: Follow-up stroke. COMPARISON STUDY: CT and MRI of the brain dated 08/21/2023. TECHNIQUE: Unenhanced axial CT scan of the brain is performed from the vertex to the skull base. A do se lowering technique was utilized adhering to the principles of ALARA. CT DOSE: 547.75 mGy.cm FINDINGS: Brain parenchyma: There is age-related involutional change noting mild subcortical and periventricula r microangiopathic disease. There is no hemorrhage, mass effect, or evidence of acute territorial isc hemia by CT criteria. Wall-white matter differentiation is preserved. No extra-axial fluid collection is seen. Ventricles, sulci, cisterns: Prominent secondary to involutional change. Intracranial vasculature: There is atherosclerotic calcification of the cavernous carotid and vertebr al arteries. Calvarium: Unremarkable. Sinuses and mastoids: There is evidence of previous paranasal sinus surgery. The visualized paranasal sinuses are clear. The mastoid air cells are well pneumatized. Orbits: The bony orbits are grossly intact. IMPRESSION: There is no hemorrhage, mass effect, or evidence of acute territorial ischemia by CT marcelt rakesh. The tiny left temporo-occipital infarct seen by MRI is not visualized on CT. ACT 112: Negative or not required by law. Electronically signed by: Carlos Sinclair M.D. 08/22/2023 4:45 PM
[2023-08-22] MEDS ORDERED: STROKE PATIENT DISCHARGE STA (18:19)
--- NOTE | 2023-08-22 18:20 | Discharge Summary ---
Date of Service August 22, 2023 Admission HPI Per Admitting Provider The patient is an 82-year-old male with a past medical history including atrial flutter status post cardioversion 08/04/2022 on Eliquis, chronic right foot drop, peripheral neuropathy, hypertension, history of mitral valve repair, hematoma, parotiditis, BPH, and lymphoma in remission. He presents to the emergency department with symptoms as noted above, all of which appear to be improving at this time. He was evaluated as a stroke alert, and underwent CT head, CTA head and neck all of which showed no acute findings. He was assessed by telestroke neurology, and due to being on Eliquis, was thought to not be a candidate for thrombolytics. Recommendation by telestroke neurology was to give patient aspirin, hold Eliquis until after MRI results. Of note, patient did not take his Eliquis this morning Discharge Data Allergies Allergy/AdvReac Type Severity Reaction Status Date / Time aspirin AdvReac Mild GI UPSET Unverified 07/22/23 12:58 Latex Allergy Unknown Unknown Uncoded 07/22/23 12:58 Consultations 08/21/23 14:45 ED Decision to Admit Stat 08/21/23 18:30 Consult Neurology Routine Ordered Studies 08/21/23 13:53 CT angio head w con Stat CT angio neck with con Stat CT head/brain wo con Stat 08/21/23 15:10 MRI Brain [MR brain wo con] Stat 08/22/23 16:00 CT head/brain wo con Routine Hospital Course (1) Acute CVA (cerebrovascular accident): MRI with small temporal infarct No evidence of infarct on CT scan. No appreciated abnormality on CTA of the head and neck. Neurology consulted. Appreciate Dr. Baldwin's input. Anticipate resuming patient's Eliquis after CT scan of the head this afternoon at 4 PM. Will also anticipate discharging patient on aspirin 81 mg p.o. daily Continue to allow for permissive hypertension pending repeat CT head this afternoon Systolic pressure currently 170. If this approaches 180, will resume oral medications prior to CT head (2) Atrial flutter: No appreciation of flutter on examination Rate controlled in the 60s Eliquis has been held pending workup for acute CVA. Anticipate resuming Eliquis this afternoon Continue statin, beta-anjel on discharge (3) Chronic anticoagulation: Secondary to a flutter. Please see above. 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 Review of chart indicates the patient is most likely in remission Continue outpatient follow-up with [facility] oncology (5) Right foot drop: Activity restrictions per nursing Not related to acute admission (6) Hypertension: All medications held pending workup for stroke Resume on discharge Current blood pressure 170/86 (7) History of mitral valve repair: Echocardiogram pending Continue anticoagulation on discharge (8) On deep vein thrombosis (DVT) prophylaxis: Continue Eliquis once cleared for CVA Continue with ALOK hose Increase activity as needed Discharge Plan Discharge Items Patient Disposition: Home - Self-Care Reason For Visit: STROKE LIKE SYMPTOMS Discharge Diagnosis: Subcentimeter acute left posterior temporal lobe infarct. Activity: As commented below Activity Comment: Use walker all the time until cleared by Physical therapy or your doctor Lifting: Wait until after follow-up appointment Bathing: No limitations Exercise/Sports: Gradually increase as tolerated Exercise Comment: Use walker all the time Driving/Machine Use: No driving until cleared by doctor Weightbearing: Full weightbearing Non-emergency contact: Primary Care Provider Call non-emergency contact if: you have any medication questions Follow-up/Referrals: Trenton Rodriguez MD [Primary Care Provider] - Diet: Heart Healthy Addtl Attending Provider Instructions: Although the CT of your head did not reveal an acute stroke, the MRI of your brain showed a small stroke in the left posterior temporal lobe. You should continue your rosuvastatin and eliquis and start a baby aspirin (81mg) daily. Follow up [facility] neurology clinic in 2-3 weeks as an outpatient You should also receive in home Physical Therapy at home 2-3 times weekly. Please talk to Dr. Rodriguez about ordering this at [facility]. He can also direct you as to if you would benefit from Speech Language Pathology for swallowing as sometimes this can be affected with an acute stroke. You can restart your Eliquis as ordered effective immediately. If you develop severe headache or any further acute stroke like symptoms, please report promptly to the nearest emergency room You may take all other home medications as prescribed. Thank you for allowing us to participate in your care at [facility]. If you have any further questions or concerns, please do not hesitate to call Pending Studies at Discharge: No Stand-Alone Forms: My [facility], Medications to Prevent Stroke Medications and DC Order Prescriptions: New aspirin [Adult Aspirin Regimen] 81 mg tablet,delayed release (DR/EC) 81 mg PO DAILY Qty: 30 3RF Continued B-complex with vitamin C Capsule 1 cap PO DAILY rosuvastatin 10 mg tablet 10 mg PO DAILY levothyroxine 75 mcg capsule 75 mcg PO QAM metoprolol succinate 25 mg capsule,sprinkle,ER 24hr 12.5 mg PO QPM ascorbate calcium (vitamin C) 500 mg tablet 500 mg PO QAM calcium carbonate [Calcium 500] 500 mg calcium (1,250 mg) Tablet 500 mg PO QAM multivitamin Tablet 1 tab PO QAM tamsulosin 0.4 mg Capsule 0.4 mg PO HS coenzyme Q10 [Co Q-10] 100 mg Capsule 100 mg PO QAM Eliquis 5 mg Tablet 5 mg PO BID Probiotic 3 billion cell Capsule 3,000 mmu cells PO QAM Rx Instructions: administer with a meal Discharge Orders: Discharge Order (Routine); Ordered 08/22/23 Ordered By: Carlos Alvarado/Other Patient Handouts: Symptoms of Stroke, Stroke: Self-Care Admission Data Admit Date/Time: 08/21/23 15:24 Attending Provider: Ronni Lobo Admit Provider: Phu Lawrence Primary Care Provider: Trenton Rodriguez Other Providers: Phu Lawrence; Dyllan Baldwin Coding Diagnoses Acute CVA (cerebrovascular accident) I63.9 Atrial flutter I48.92 Chronic anticoagulation Z79.01 Marginal zone B-cell lymphoma C85.80 Right foot drop M21.371 Hypertension I10 History of mitral valve repair Z98.890 On deep vein thrombosis (DVT) prophylaxis Z79.899
--- NOTE | 2023-08-22 18:33 | Pharmacy Report ---
- Date of Service August 22, 2023 - Pharmacy CVA/TIA Medication Review Medications to Prevent Stroke handout has been added to the patients discharge packet. Antiplatelet(s) * Aspirin 81 mg PO daily Cholesterol * High intensity statin deferred due to age >75, continuing rosuvastatin 10 mg PO daily DVT Prophylaxis * SCD knee Therapeutic Anticoagulation * Hx Afib/Aflutter noted, and patient is currently receiving apixaban (ordered to continue on discharge) Type 2 Diabetes * Patient does not have T2DM
--- NOTE | 2023-08-24 10:45 | Pharmacy Report ---
Pharmacist Stroke Counseling - Date of Service August 24, 2023 - Scope: Pharmacy has been consulted to provide medication discharge counseling for this patient admitted with ischemic stroke as per the Pharmacist Discharge Counseling for Stroke Patients Protocol. - Medications on Discharge: Home Medications Medication Instructions Recorded Confirmed ascorbate calcium (vitamin C) 500 500 mg PO QAM 06/12/20 08/21/23 mg tablet levothyroxine 75 mcg capsule 75 mcg PO QAM 06/12/20 08/21/23 metoprolol succinate 25 mg capsule 12.5 mg PO QPM 06/12/20 08/21/23 sprinkle, ext. release 24 hr apixaban 5 mg tablet (Eliquis) 5 mg PO BID 07/30/22 08/21/23 coenzyme Q10 100 mg capsule (Co 100 mg PO QAM 07/30/22 08/21/23 Q-10) lactobacillus combination no.4 3 3,000 mmu cells PO QAM 07/30/22 08/21/23 billion cell capsule (Probiotic) multivitamin 1 tab PO QAM 07/30/22 08/21/23 tamsulosin 0.4 mg capsule 0.4 mg PO HS 07/30/22 08/21/23 B-complex with vitamin C 1 cap PO DAILY 07/22/23 08/21/23 rosuvastatin 10 mg tablet 10 mg PO DAILY 07/22/23 08/21/23 calcium carbonate 500 mg calcium 500 mg PO QAM 08/21/23 08/21/23 (1,250 mg) tablet New Rx's Medication Instructions Recorded aspirin 81 mg tablet,delayed 81 mg PO DAILY #30 tabs 08/22/23 release (Adult Aspirin Regimen) - Action: The above medications, specifically ones for stroke treatment/prophylaxis, have been reviewed in detail with the patient. This includes indication, common adverse reactions, drug interactions, and medication administration. Medication counseling has been employed using the teach-back method to ensure understanding. - Outcome: The patient have demonstrated understanding of the medications. Additional comments: Spoke over the phone with patient today- he was very pleasant and receptive to counseling. Reviewed new medications to prevent stroke - Aspirin 81 mg daily and previously prescribed meds- Eliquis 5 mg twice a day and Rosuvastatin 10 mg daily. Discussed why they are being used and common side effects in great detail. Reviewed how to use the medications, what to do if doses are missed, common drug interactions, common side effects, what to watch out for while using the medications. Pt verbalized understanding and restated the gil points of each medication. Thank you for allowing pharmacy to be involved in the care of this patient. Please call [phone] with any additional questions
== END 2023-08-22 19:07 | disposition home or self-care (01) ==
LOC: ED 13:49 → EDINP 13:49 → SUATTDRO 15:24 → 2E 17:53

== ENCOUNTER 2023-12-08 19:43 | Inpatient (IN) ==
[2023-12-08 20:27] LABS: Basophils # (auto) 0.03 K/uL (0.00-0.20); Basophils % (auto) 0.4 %; Eosinophils # (auto) 0.06 K/uL (0.00-0.50); Eosinophils % (auto) 0.8 %; Hematocrit (blood only) 42.9 % (42.0-52.0); Hemoglobin 14.4 g/dl (14.0-18.0); Immature Granulocytes # (auto) 0.02 K/uL (0.01-0.20); Immature Granulocytes % (auto) 0.3 %; Lymphocytes # (auto) 1.17 K/uL (1.20-3.40); Lymphocytes % (auto) 16.5 %; Mean Corpuscular Hemoglobin 29.4 pg (25.0-34.0); Mean Corpuscular Hgb Conc 33.6 g/dL (32.0-36.0); Mean Corpuscular Volume 87.6 fL (80.0-100.0); Mean Platelet Volume 10.2 fL (9.4-12.4); Monocytes # (auto) 0.54 K/uL (0.11-0.59); Monocytes % (auto) 7.6 %; Neutrophils # (auto) 5.26 K/uL (1.40-6.50); Neutrophils % (auto) 74.4 %; Platelet Count 173 K/uL (130-400); RDW Coefficient of Variation 13.1 % (11.5-14.5); RDW Standard Deviation 41.8 fL (36.4-46.3); White Blood Count 7.08 K/ul (4.8-10.8)
[2023-12-08 20:37] LABS: iSTAT Creatinine 1.2 mg/dl (0.6-1.3); iSTAT Hemoglobin 14.3 g/dl (14.0-18.0); iSTAT Ionized Calcium 1.12 mmol/l (1.12-1.32); iSTAT Potassium 3.5 mmol/L (3.3-5.0)
[2023-12-08 20:44] LABS: Albumin Globulin Ratio 1.8 (0.9-2); Albumin Level 4.2 gm/dl (3.4-5.0); BUN Creatinine Ratio 15.5 (10-20); Bilirubin,Total 0.8 mg/dl (0.2-1.0); Calcium 8.9 mg/dl (8.6-10.3); Creatinine Clr Calc Pharmacy 55.8 ml/min; Est GFR (African American) 71.6 ml/min; Est GFR (Non-African American) 61.8 ml/min; Globulin 2.4 gm/dl (2.5-4.0); Potassium 3.6 mmol/L (3.5-5.1); Total Protein 6.6 gm/dl (6.0-8.3)
[2023-12-08 20:54] LABS: Partial Thromboplastin Ratio 1.1; Partial Thromboplastin Time 30 Seconds (21-31); Prothrombin Time 11.4 Seconds (9.0-12.0)
--- NOTE | 2023-12-08 22:47 | History & Physical Report ---
Date of Service December 08, 2023 Assessment & Plan (1) Acute GI bleeding: Plan: Pt is a 83 yo male with PMH of CVA (07/2023), aflutter, hypothyroidism, lymphoma (s/p immune therapy), and BCC presenting d/t bleeding after a colonoscopy. Acute lower GI bleed - s/p colonoscopy with biopsies today 12/07 - VSS, Hgb 14 upon admission, CMP WNL; pt asymptomatic- no need for acute aspirin reversal as pt is stable - will monitor CBC for any drops in Hgb as pt continues to have bloody BM - protonix 40 mg IV given on admission; would continue daily while bleeding - keep NPO; GI consulted Hx of CVA - occurred 07/2023 - will hold daily aspirin in the setting of acute bleed - continue home rosuvastatin 10 mg daily Hx of aflutter - chronically anticoagulated with eliquis BID (last dose 12/03) - will hold in the setting of acute bleed - continue home metoprolol 12.5mg nightly Hypothyroidism - continue home levothyroxine 75 mcg daily Diet: NPO VTE ppx: deferred in the setting of active bleed Code: full Dispo: admit to med/tele History of Present Illness Chief Complaint: GI bleed Primary Care Provider: Trenton Rodriguez MD Pt is a 83 yo male with PMH of CVA (07/2023), lymphoma (s/p immune therapy), and BCC presenting d/t bleeding after a colonoscopy. Pt states he had a colonoscopy performed today (with [facility]) where biopsies were taken. Since then, he has had multiple bloody BM- he describes them as bright red. His last colonoscopy was in 2018 where biopsies were also performed. He did not experience any bleeding afterward. He has no hx of colon cancer or abnormal colonoscopies. He denies lightheadedness, dizziness, SOB, and chest pain. He endorses mild lower abdominal pain and feeling like he has to defecate but he cannot. His last eliquis dose was Sunday 12/03 and last aspirin was yesterday 12/06. In the ER, pt was not given any medications or interventions. Allergies Allergy/AdvReac Type Severity Reaction Status Date / Time Latex, Natural Rubber Allergy Unknown Unknown Verified 12/08/23 23:35 aspirin AdvReac Mild GI UPSET Unverified 12/08/23 23:33 Home Medications Medication Instructions Recorded Confirmed Type ascorbate calcium (vitamin C) 500 500 mg PO QAM 06/12/20 12/08/23 History mg tablet levothyroxine 75 mcg capsule 75 mcg PO QAM 06/12/20 12/08/23 History metoprolol succinate 25 mg capsule 12.5 mg PO QPM 06/12/20 12/08/23 History sprinkle, ext. release 24 hr apixaban 5 mg tablet (Eliquis) 5 mg PO BID 07/30/22 12/08/23 History coenzyme Q10 100 mg capsule (Co 100 mg PO QAM 07/30/22 12/08/23 History Q-10) lactobacillus combination no.4 3 3,000 mmu cells PO QAM 07/30/22 12/08/23 History billion cell capsule (Probiotic) multivitamin 1 tab PO QAM 07/30/22 12/08/23 History tamsulosin 0.4 mg capsule 0.4 mg PO HS 07/30/22 12/08/23 History B-complex with vitamin C 1 cap PO DAILY 07/22/23 12/08/23 History rosuvastatin 10 mg tablet 10 mg PO DAILY 07/22/23 12/08/23 History calcium carbonate 500 mg PO QAM 08/21/23 12/08/23 History aspirin 81 mg tablet,delayed 81 mg PO DAILY #30 tabs 08/22/23 12/08/23 Rx release (Adult Aspirin Regimen) losartan 25 mg tablet 25 mg PO QAM 12/08/23 12/08/23 History Past Med/Surg History Medical History Acute CVA (cerebrovascular accident) Chronic anticoagulation Marginal zone B-cell lymphoma Atrial flutter Environmental allergies Basal cell carcinoma (BCC) Mitral valve regurgitation Surgical History History of esophagogastroduodenoscopy (EGD) Hx of colonoscopy History of back surgery Hx of cardiac catheterization History of kidney surgery History of mitral valve repair History of sinus surgery History of hernia repair Social History Smoking Status: Never smoker Tobacco Type: Cigarettes Second Hand Exposure: No; Do You Dip or Chew Tobacco: No; Hx Alcohol Use: No Hx Substance Use: No Preferred Language: Zimbabwean Communication Ability: Effective Batch Dumper Required: No Beliefs That Will Affect Care: None marital status: Current Living Situation: Spouse current occupational status: retired Feels Safe at Home: Yes Assistive Devices: Glasses Review of Systems Review of Systems: As per HPI Physical Exam Constitutional: NAD, vitals WNL. Respiratory: CTA bilaterally. Non labored breathing. No rhonchi, wheezing, or crackles. Cardiovascular: RRR. 2/6 systolic murmur noted. No LE edema. Gastrointestinal (Abdomen): Nontender, non distended, +BS. No masses noted. Skin: No rashes or skin lesions noted. Neurologic: Sensation grossly intact. No FND appreciated. Psychiatric: Speech of normal pace and content. Mood and affect congruent. Results & Data Results & Data Vital Signs (Past 12 Hours) Vital Signs Temp Pulse Pulse Resp BP BP Pulse Ox 12/08/23 21:52 69 14 139/80 95 12/08/23 19:45 36.6 C 83 18 155/91 H 95 O2 Del Method 12/08/23 21:52 Room Air 12/08/23 19:45 Supervising Physician Co-Signing Physician Notes Attending addendum: I have physically seen this patient, have supervised the medical residents activities, and agree with the H&P unless as otherwise noted. Assessment and Plan: Acute lower GI bleeding/bright red blood per rectum- Patient is status post colonoscopy earlier in the day with random colon biopsies for surveillance Reports he has been taking his aspirin daily up to the day prior to the procedure Initial hemoglobin 14.4, with follow-up 14 If worsening of bleeding will place on DDAVP H&H every 6 hours Protonix 40 mg IV Type and screen ordered N.p.o. except essential medications Gastroenterology on-call Dr. Morrison has been contacted by the ED physician, and will review procedure performed by Dr. Raymond Consult to Dr. Carbajal Case History of CVA/atrial flutter- Continue metoprolol 12.5 mg nightly Last dose of Eliquis for patient was 12/03 Hold aspirin until seen by GI, however, patient is at risk for recurrence of stroke Resident Activity Tracking Resident Involvement: Resident Care Provided Care Provided: Adult [facility]
[2023-12-08] MEDS ORDERED: ONDANSETRON INJ 2 MG/ML 2 ML VIAL IV PRN (23:13)
[2023-12-08] MEDS ORDERED: ACETAMINOPHEN 325 MG TAB PO PRN (23:13)
[2023-12-08] MEDS ORDERED: MELATONIN 3 MG TAB PO PRN (23:13)
--- NOTE | 2023-12-09 00:14 | Emergency Department Note ---
Impression & Plan Acute lower GI bleeding, S/P colonoscopy ED Provider Note CHIEF COMPLAINT: Rectal bleeding HISTORY OF PRESENT ILLNESS: This 83-year-old male patient presents emergency department with complaints of rectal bleeding. The patient had a colonoscopy today performed by Dr. Raymond through [facility] gastroenterology. Patient states he is normally on Eliquis but stopped this medication about a week ago. He states he got home from the scope and developed some lower abdominal cramping and promptly had a bloody bowel movement. After a second episode very similar to this, he contacted Dr. Raymond who thought this may be normal postoperative bleeding. The patient was advised to watch and present to the emergency department if bleeding worsened. Patient states he had 1-2 more episodes of bright red blood per rectum without any stool. He denies any lightheadedness. REVIEW OF SYSTEMS: A review of systems was performed with positives and pertinent negatives listed in the history of present illness. 10 systems were reviewed and are otherwise negative. ALLERGIES: see below MEDICATIONS: see below PMH: see below SOCIAL HISTORY: see below DDx: Diverticulitis, post colonoscopy bleeding secondary to biopsy, hemorrhoidal bleed, internal hemorrhoid, colonic mass among others. PHYSICAL EXAM: Vital signs reviewed. General: Well-appearing 83-year-old male, in no significant distress. HEENT: No scleral icterus, PERRLA, neck supple. Moist mucous membranes. Cardiovascular: Regular rate and rhythm, no extra sounds. Pulmonary: Clear to auscultation bilaterally, normal work of breathing. Abdomen: Soft, nontender, nondistended, positive bowel sounds. Musculoskeletal: Atraumatic, no peripheral edema. GI: Normal external rectal mucosa, dark red blood noted in the rectal vault. Guaiac positive. Neurologic: Patient awake alert and oriented x 3, speech is clear Skin: Warm, dry, no rash EMERGENCY DEPARTMENT COURSE/MDM: This patient was evaluated and appeared to be in no significant distress. Physical examination is fairly reassuring. Patient's initial hemoglobin is fairly stable at 14.0 from 14.4. On rectal exam, patient does have dark red clotted positive blood. Abdominal x-ray to my interpretation reveals no evidence of free air. Type and screen was performed. IV fluids were initiated. I did speak with Dr. Morrison of [facility] gastroenterology who felt the patient was stable for admission to the medicine service for H&H monitoring. Patient was made aware of this plan and agreed. MONITORING: An order for cardiac monitoring was placed and the patient is noted to be in a NSR at 64 beats per minute. RADIOLOGY: Abdominal x-ray series to my interpretation reveals no evidence of obstruction or free air. EKG: To my interpretation reveals normal sinus rhythm at 76 bpm. Left anterior fascicular block. QTc of 450. Normal ST segments. No PVC, no PAC. No significant change from previous dated August 22, 2023. DISPOSITION: Admission Past Med/Surg History Medical History Acute CVA (cerebrovascular accident) MRI 08/21/2023 - Subcentimeter acute left posterior temporal lobe infarct. Chronic anticoagulation Marginal zone B-cell lymphoma DR [facility]- DX END OF 2020- TREATED W/ IMMUNE THERAPY INFUSIONS- IN REMISSION Atrial flutter Environmental allergies has not needed inhaler > 1yr Basal cell carcinoma (BCC) Mitral valve regurgitation Surgical History History of esophagogastroduodenoscopy (EGD) Hx of colonoscopy History of back surgery - 2020 Hx of cardiac catheterization 2011- [place]- no stents History of kidney surgery History of mitral valve repair 2011- [facility]RISTINA Shafer - FOLLOWS W/ DR ACEVEDO, LAST VISIT 06/2022 History of sinus surgery History of hernia repair Social History Smoking Status: Former smoker Tobacco Type: Cigarettes Second Hand Exposure: No; Do You Dip or Chew Tobacco: No; Hx Alcohol Use: No Hx Substance Use: No Preferred Language: Frisian Communication Ability: Effective Splitter Head Required: No Beliefs That Will Affect Care: None marital status: Current Living Situation: Spouse current occupational status: retired Feels Safe at Home: Yes Assistive Devices: None Allergies Allergies Allergy/AdvReac Type Severity Reaction Status Date / Time Latex, Natural Rubber Allergy Unknown Unknown Verified 12/08/23 23:35 aspirin AdvReac Mild GI UPSET Unverified 12/08/23 23:33 Home Meds Home Medications Medication Instructions Recorded Confirmed ascorbate calcium (vitamin C) 500 500 mg PO QAM 06/12/20 12/08/23 mg tablet levothyroxine 75 mcg capsule 75 mcg PO QAM 06/12/20 12/08/23 metoprolol succinate 25 mg capsule 12.5 mg PO QPM 06/12/20 12/08/23 sprinkle, ext. release 24 hr apixaban 5 mg tablet (Eliquis) 5 mg PO BID 07/30/22 12/08/23 coenzyme Q10 100 mg capsule (Co 100 mg PO QAM 07/30/22 12/08/23 Q-10) lactobacillus combination no.4 3 3,000 mmu cells PO QAM 07/30/22 12/08/23 billion cell capsule (Probiotic) multivitamin 1 tab PO QAM 07/30/22 12/08/23 tamsulosin 0.4 mg capsule 0.4 mg PO HS 07/30/22 12/08/23 B-complex with vitamin C 1 cap PO DAILY 07/22/23 12/08/23 rosuvastatin 10 mg tablet 10 mg PO DAILY 07/22/23 12/08/23 calcium carbonate 500 mg PO QAM 08/21/23 12/08/23 losartan 25 mg tablet 25 mg PO QAM 12/08/23 12/08/23 Previous Rx's Medication Instructions Recorded hydrocortisone 2.5 % topical cream 1 applic CO DAILY PRN hemorrhoids 12/11/23 with perineal applicator #30 grams (Anusol-HC) Results & Data (ED) Vital Signs Vital Signs - 24 hr 12/08/23 19:45 12/08/23 21:52 12/08/23 23:13 Temperature 36.6 C Temperature Source Temporal Artery Scan Pulse Rate 83 Pulse Rate [Finger] 69 Respiratory Rate 18 14 Respiratory Effort / Characteristics Non-Labored Respiratory Depth Normal Blood Pressure 155/91 H Blood Pressure [Right Arm] 139/80 Blood Pressure Mean 112 Blood Pressure Mean [Right Arm] 99 Pulse Oximetry 95 95 Oxygen Delivery Method Room Air Sepsis Recent Fever Within 48 Hours No Sepsis New/Unexplained Change in Mental Status N/A Sepsis Action Taken by Nursing No Action Required 12/08/23 23:25 Temperature Temperature Source Pulse Rate 64 Pulse Rate [Finger] Respiratory Rate Respiratory Effort / Characteristics Respiratory Depth Blood Pressure Blood Pressure [Right Arm] Blood Pressure Mean Blood Pressure Mean [Right Arm] Pulse Oximetry Oxygen Delivery Method Sepsis Recent Fever Within 48 Hours Sepsis New/Unexplained Change in Mental Status Sepsis Action Taken by Shelter Medications Current Medication List: was personally reviewed by me Laboratory Data Attestation: I reviewed the patient's lab results. 12/11/23 05:30 12/11/23 05:30 Lab Results 12/08/23 12/08/23 12/08/23 Range/Units 20:00 20:09 21:15 WBC 7.08 (4.8-10.8) K/ul RBC 4.90 (4.70-6.10) M/uL Hgb 14.4 (14.0-18.0) g/dl POC Hgb 14.3 (14.0-18.0) g/dl Hct 42.9 (42.0-52.0) % POC Hct 42 (42-52) % MCV 87.6 (80.0-100.0) fL MCH 29.4 (25.0-34.0) pg MCHC 33.6 (32.0-36.0) g/dL RDW Std Deviation 41.8 (36.4-46.3) fL RDW Coeff of Selena 13.1 (11.5-14.5) % Plt Count 173 (130-400) K/uL MPV 10.2 (9.4-12.4) fL Immature Gran % (Auto) 0.3 % Neut % (Auto) 74.4 % Lymph % (Auto) 16.5 % [place] % (Auto) 7.6 % Eos % (Auto) 0.8 % Baso % (Auto) 0.4 % Neut # (Auto) 5.26 (1.40-6.50) K/uL Lymph # (Auto) 1.17 L (1.20-3.40) K/uL [place] # (Auto) 0.54 (0.11-0.59) K/uL Eos # (Auto) 0.06 (0.00-0.50) K/uL Baso # (Auto) 0.03 (0.00-0.20) K/uL Immature Gran # (Auto) 0.02 (0.01-0.20) K/uL PT 11.4 (9.0-12.0) Seconds INR 1.0 (0.9-1.1) APTT 30 (21-31) Seconds PTT Ratio 1.1 POC Sodium 138 (135-144) mmol/L Sodium 136 (136-145) mmol/L POC Potassium 3.5 (3.3-5.0) mmol/L Potassium 3.6 (3.5-5.1) mmol/L POC Chloride 101 (101-112) mmol/L Chloride 104 (98-107) mmol/L Carbon Dioxide 25 (21-32) mmol/L POC Total CO2 26 (24-31) mmol/L Anion Gap 7 (3-11) POC Anion Gap 15.0 L (16-25) mmol/L POC BUN 16 (7-18) mg/dl BUN 17 (6-23) mg/dl Creatinine 1.10 (0.6-1.4) mg/dl POC Creatinine 1.2 (0.6-1.3) mg/dl Est Cr Clr Drug Dosing 55.8 ml/min Est GFR ( Amer) 71.6 ml/min Est GFR (Non-Af Amer) 61.8 ml/min BUN/Creatinine Ratio 15.5 (10-20) Glucose 142 H (70-99(Fasting)) mg/dl POC Glucose (other) 133 H (70-99) mg/dl Calcium 8.9 (8.6-10.3) mg/dl POC Ioniz Calcium Cynthia 1.12 (1.12-1.32) mmol/l Total Bilirubin 0.8 (0.2-1.0) mg/dl AST 25 (13-39) U/L ALT 18 (7-52) U/L Alkaline Phosphatase 122 H (34-104) U/L Total Protein 6.6 (6.0-8.3) gm/dl Albumin 4.2 (3.4-5.0) gm/dl Globulin 2.4 L (2.5-4.0) gm/dl Albumin/Globulin Ratio 1.8 (0.9-2) Blood Type A Positive Antibody Screen NEGATIVE 12/08/23 Range/Units 22:08 WBC (4.8-10.8) K/ul RBC (4.70-6.10) M/uL Hgb 14.0 (14.0-18.0) g/dl POC Hgb (14.0-18.0) g/dl Hct 42.0 (42.0-52.0) % POC Hct (42-52) % MCV (80.0-100.0) fL MCH (25.0-34.0) pg MCHC (32.0-36.0) g/dL RDW Std Deviation (36.4-46.3) fL RDW Coeff of Selena (11.5-14.5) % Plt Count (130-400) K/uL MPV (9.4-12.4) fL Immature Gran % (Auto) % Neut % (Auto) % Lymph % (Auto) % [place] % (Auto) % Eos % (Auto) % Baso % (Auto) % Neut # (Auto) (1.40-6.50) K/uL Lymph # (Auto) (1.20-3.40) K/uL [place] # (Auto) (0.11-0.59) K/uL Eos # (Auto) (0.00-0.50) K/uL Baso # (Auto) (0.00-0.20) K/uL Immature Gran # (Auto) (0.01-0.20) K/uL PT (9.0-12.0) Seconds INR (0.9-1.1) APTT (21-31) Seconds PTT Ratio POC Sodium (135-144) mmol/L Sodium (136-145) mmol/L POC Potassium (3.3-5.0) mmol/L Potassium (3.5-5.1) mmol/L POC Chloride (101-112) mmol/L Chloride (98-107) mmol/L Carbon Dioxide (21-32) mmol/L POC Total CO2 (24-31) mmol/L Anion Gap (3-11) POC Anion Gap (16-25) mmol/L POC BUN (7-18) mg/dl BUN (6-23) mg/dl Creatinine (0.6-1.4) mg/dl POC Creatinine (0.6-1.3) mg/dl Est Cr Clr Drug Dosing ml/min Est GFR ( Amer) ml/min Est GFR (Non-Af Amer) ml/min BUN/Creatinine Ratio (10-20) Glucose (70-99(Fasting)) mg/dl POC Glucose (other) (70-99) mg/dl Calcium (8.6-10.3) mg/dl POC Ioniz Calcium Cynthia (1.12-1.32) mmol/l Total Bilirubin (0.2-1.0) mg/dl AST (13-39) U/L ALT (7-52) U/L Alkaline Phosphatase (34-104) U/L Total Protein (6.0-8.3) gm/dl Albumin (3.4-5.0) gm/dl Globulin (2.5-4.0) gm/dl Albumin/Globulin Ratio (0.9-2) Blood Type Antibody Screen Administered Medications Discontinued Medications Apixaban (Apixaban 5 Mg Tablet) 5 mg PO BID YOSELIN Stop: 01/09/24 20:59 Last Admin: 12/11/23 09:30 Dose: 5 mg Documented By: Admin: 12/10/23 20:22 Dose: 5 mg Documented By: EULA Pantoprazole Sodium 40 mg/ (Syringe) 10 mls @ 5 mls/min IV NOW ONE Stop: 12/09/23 00:00 Last Admin: 12/09/23 00:24 Dose: 5 mls/min Documented By: SCOTT Pantoprazole Sodium 40 mg/ (Syringe) 10 mls @ 5 mls/min IV DAILY@1100 [facility] Stop: 01/08/24 10:59 Last Admin: 12/10/23 10:19 Dose: 5 mls/min Documented By: Admin: 12/09/23 09:42 Dose: 5 mls/min Documented By: PAVAN Levothyroxine Sodium (Levothyroxine Sodium 75 Mcg Tablet) 75 mcg PO DAILYBB [facility] Stop: 01/08/24 06:29 Last Admin: 12/11/23 05:49 Dose: 75 mcg Documented By: Admin: 12/10/23 05:53 Dose: 75 mcg Documented By: Admin: 12/09/23 06:41 Dose: 75 mcg Documented By: HEIDI Losartan Potassium (Losartan Potassium 25 Mg Tab) 25 mg PO QAM [facility] Stop: 01/08/24 12:44 Last Admin: 12/11/23 09:30 Dose: 25 mg Documented By: Admin: 12/10/23 09:06 Dose: 25 mg Documented By: Admin: 12/09/23 13:25 Dose: 25 mg Documented By: ROSENDO Metoprolol Succinate (Metoprolol Succ 25mg Ext Rel Tab) 12.5 mg PO NOW [facility] Stop: 12/08/23 23:37 Last Admin: 12/09/23 00:42 Dose: 12.5 mg Documented By: SCOTT Metoprolol Succinate (Metoprolol Succ 25mg Ext Rel Tab) 12.5 mg PO QPM YOSELIN Stop: 01/08/24 20:59 Last Admin: 12/10/23 20:21 Dose: 12.5 mg Documented By: Admin: 12/09/23 20:24 Dose: 12.5 mg Documented By: EULA Phenylephrine HCl (Anusol Supp 1 Ea) 1 supp CO BID YOSELIN Stop: 01/08/24 10:44 Last Admin: 12/11/23 09:30 Dose: Not Given Documented By: Admin: 12/10/23 20:21 Dose: Not Given Documented By: Admin: 12/10/23 09:03 Dose: Not Given Documented By: Admin: 12/09/23 20:25 Dose: Not Given Documented By: Admin: 12/09/23 11:57 Dose: 1 supp Documented By: ROSENDO Rosuvastatin Calcium (Rosuvastatin Calcium 10 Mg Tab) 10 mg PO DAILY YOSELIN Stop: 01/08/24 08:59 Last Admin: 12/11/23 09:30 Dose: 10 mg Documented By: Admin: 12/10/23 09:06 Dose: 10 mg Documented By: Admin: 12/09/23 09:42 Dose: 10 mg Documented By: PAVAN Tamsulosin HCl (Tamsulosin Hcl 0.4 Mg Cap) 0.4 mg PO NOW ONE Stop: 12/08/23 23:46 Last Admin: 12/09/23 00:24 Dose: 0.4 mg Documented By: SCOTT Tamsulosin HCl (Tamsulosin Hcl 0.4 Mg Cap) 0.4 mg PO HS YOSELIN Stop: 01/08/24 20:59 Last Admin: 12/10/23 20:22 Dose: 0.4 mg Documented By: Admin: 12/09/23 20:24 Dose: 0.4 mg Documented By: EULA Imaging Data Radiologist's Impression: Chest/Abdomen X-ray 12/08/23 20:36 XR abdomen 2V w PA chest HISTORY: 83 years-old Male bleeding s/p colonsocopy acute shortness of breath COMPARISON: Chest radiograph 08/21/2023, CT 10/21/2018. TECHNIQUE: PA view of the chest with 2 views of the abdomen FINDINGS: Cardiac silhouette is enlarged. No pneumothorax, pleural effusion or airspace consolidation. Mild chronic central coarsening. There are multiple epicardial pacer wires. Cardiac valvular prosthesis. Bones appear grossly intact. Lumbar levoscoliosis with intact fusion hardware. Surgical clips of the left inguinal tissues. Nonobstructive bowel gas pattern. No definite renal or ureteral calculi identified. No free air. The spleen appears to have decreased in size from the prior exam. IMPRESSION: 1. Cardiomegaly without acute process of the chest. 2. Nonobstructive bowel gas pattern. ACT 112: Negative or not required by law. The above report was generated using voice recognition software. It may contain grammatical, syntax or spelling errors. Electronically signed by: Iván Genao M.D. 12/09/2023 7:33 AM Discharge Plan Visit Data Chief Complaint: GI Bleed Stated Complaint: COLONOSCOPY TODAY, BLOODY STOOL ED Provider: Danisha Madera Discharge Problem: Acute lower GI bleeding, S/P colonoscopy Patient Disposition: Admitted As Inpatient Discharge Instructions Interventions: ED Discharge Assessment Last Done: 12/09/23 10:57 Discharge Problem:
[2023-12-09] MEDS: TAMSULOSIN HCL 0.4 MG CAP PO ONE (00:24)
[2023-12-09] MEDS: PANTOprazole 40 MG in SYRINGE 0 ML IV ONE (00:24)
[2023-12-09] MEDS: METOPROLOL SUCC 25MG EXT REL TAB PO STA (00:42)
--- NOTE | 2023-12-09 03:22 | Billing Data ---
Date of Service December 09, 2023 Coding Level of Care Code 06923 INT INP/OBS CARE
[2023-12-09 04:44] LABS: Hematocrit (blood only) 35.9 % (42.0-52.0); Hemoglobin 12.2 g/dl (14.0-18.0); Mean Corpuscular Hemoglobin 29.5 pg (25.0-34.0); Mean Corpuscular Volume 86.9 fL (80.0-100.0); Mean Platelet Volume 10.8 fL (9.4-12.4); Platelet Count 157 K/uL (130-400); RDW Standard Deviation 41.1 fL (36.4-46.3); Red Blood Count 4.13 M/uL (4.70-6.10); White Blood Count 7.02 K/ul (4.8-10.8)
[2023-12-09 05:01] LABS: BUN Creatinine Ratio 15.5 (10-20); Calcium 8.3 mg/dl (8.6-10.3); Creatinine Clr Calc Pharmacy 55.8 ml/min; Est GFR (African American) 71.6 ml/min; Est GFR (Non-African American) 61.8 ml/min
[2023-12-09] MEDS: LEVOTHYROXINE SODIUM 75 MCG TABLET PO SCH (06:41)
--- NOTE | 2023-12-09 07:08 | Hospitalist Progress Note ---
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 Acute lower GI bleed - s/p colonoscopy with biopsies today 12/07 - VSS, Hgb 14 upon admission, CMP WNL; pt asymptomatic- no need for acute aspirin reversal as pt is stable - will monitor CBC for any drops in Hgb as pt continues to have bloody BM - protonix 40 mg IV given on admission; would continue daily while bleeding - GI consulted: - Add Anusol for hemorrhoidal bleed - Advance diet to clear liquids. - Trend H&H Hx of CVA - occurred 07/2023 - will hold daily aspirin in the setting of acute bleed - continue home rosuvastatin 10 mg daily Hx of aflutter - chronically anticoagulated with eliquis BID (last dose 12/03) - will hold in the setting of acute bleed - continue home metoprolol 12.5mg nightly Hypothyroidism - continue home levothyroxine 75 mcg daily Diet: NPO VTE ppx: deferred in the setting of active bleed Code: full Dispo: admit to med/tele Admission and Anticipated Discharge Date Admission Date: December 08, 2023 Supervising Physician Co-Signing Physician Notes Attending attestation Pt seen and examined in concert with Dr. Mendosa. In agreement with the documented findings as noted in the resident documentation with any exceptions or additions as noted here. Resting comfortably in bed tolerating clears at tme of examination without complaint. On examination, S1/S2 nl RRR audible chronic systolic murmur. CTAB. Abd NT/ND BS+ve Acute GI bleed - GI consult - stable hemoglobin and asymptomatic at this time. Agree w/ monitor H/H, PPI therapy and follow up. h/o CVA - holding ASA, continue statin therapy h/o atrial flutter - holding apixaban, continue metoprolol Else see resident documentation as noted. Subjective Patient was seen bedside this AM. No issues or concerns. Some mild ab pain. No more BM since admission. Review of Systems Review of Systems: All systems reviewed & are unremarkable except as noted in Subjective Physical Exam Physical Exam: Constitutional: well-appearing, no acute distress HEENT: NCAT, no conjunctival injection CV: regular rhythm, systolic murmur, extremities well-perfused, no LE edema Resp: CTABL, no wheezes/rales/rhonchi appreciated, no increased work of breathing GI: soft, nondistended, nontender, BS normoactive MSK: no gross deformities appreciated Results & Data Results & Data Vital Signs (Past 12 Hours) Vital Signs Temp Pulse Pulse Resp BP BP Pulse Ox 12/09/23 04:00 72 16 97 12/09/23 00:30 77 22 96 12/09/23 00:30 127/76 12/09/23 00:29 107/86 12/09/23 00:29 79 16 97 12/09/23 00:24 87 17 12/08/23 23:50 66 24 96 12/08/23 23:40 67 22 96 12/08/23 23:34 72 23 96 12/08/23 23:34 158/80 H 12/08/23 23:32 83 27 H 95 12/08/23 23:25 62 36 H 95 12/08/23 23:25 126/73 12/08/23 23:25 64 12/08/23 21:52 69 14 139/80 95 12/08/23 19:45 36.6 C 83 18 155/91 H 95 O2 Del Method 12/09/23 04:00 Room Air 12/09/23 00:30 12/09/23 00:30 12/09/23 00:29 12/09/23 00:29 12/09/23 00:24 12/08/23 23:50 12/08/23 23:40 12/08/23 23:34 12/08/23 23:34 12/08/23 23:32 12/08/23 23:25 12/08/23 23:25 12/08/23 23:25 12/08/23 21:52 Room Air 12/08/23 19:45
--- NOTE | 2023-12-09 07:35 | XRay Report ---
XR abdomen 2V w PA chest HISTORY: 83 years-old Male bleeding s/p colonsocopy acute shortness of breath COMPARISON: Chest radiograph 08/21/2023, CT 10/21/2018. TECHNIQUE: PA view of the chest with 2 views of the abdomen FINDINGS: Cardiac silhouette is enlarged. No pneumothorax, pleural effusion or airspace consolidation. Mild chr onic central coarsening. There are multiple epicardial pacer wires. Cardiac valvular prosthesis. Bone s appear grossly intact. Lumbar levoscoliosis with intact fusion hardware. Surgical clips of the left inguinal tissues. Nonobs tructive bowel gas pattern. No definite renal or ureteral calculi identified. No free air. The spleen appears to have decreased in size from the prior exam. IMPRESSION: 1. Cardiomegaly without acute process of the chest. 2. Nonobstructive bowel gas pattern. ACT 112: Negative or not required by law. The above report was generated using voice recognition software. It may contain grammatical, syntax o r spelling errors. Electronically signed by: Iván Genao M.D. 12/09/2023 7:33 AM
--- NOTE | 2023-12-09 09:17 | Electrocardiogram Report ---
Test Reason : Blood Pressure : / mmHG Vent. Rate : 076 BPM Atrial Rate : 076 BPM P-R Int : 184 ms QRS Dur : 114 ms QT Int : 400 ms P-R-T Axes : 099 -73 072 degrees QTc Int : 450 ms Normal sinus rhythm Left anterior fascicular block Minimal voltage criteria for LVH, may be normal variant Abnormal ECG When compared with ECG of 22-AUG-2023 05:52, No significant change was found Confirmed by Luis Burks ([id number]) on 12/09/2023 9:17:10 AM Referred By: REFERRED SELF Confirmed By:Ernie Burks
[2023-12-09] MEDS: PANTOprazole 40 MG in SYRINGE 0 ML IV SCH (09:42)
[2023-12-09] MEDS: ROSUVASTATIN CALCIUM 10 MG TAB PO SCH (09:42)
--- NOTE | 2023-12-09 10:37 | Gastrointestinal Consultation ---
Date of Consultation December 09, 2023 Assessment & Plan (1) Acute GI bleeding: Resolved. -Continue to monitor H/H -Add Anusol given concern for hemorrhoidal bleeding -No plans for repeat colonoscopy at present unless clinical situation were to change Supervising Physician Co-Signing Physician Notes Agree with SHILOH Lafleur as above Abd: Soft, NT, ND, +BS Continue current therapy and supportive care If H/H remains stable no role for repeat colonoscopy Advance to clear liquid diet History of Present Illness Reason for Consultation: GI bleeding Attending Physician: Luis Soni MD History of Present Illness Patient is an 83 yo male with PMH of CVA, A flutter, HTN, and BPH who presents to the hospital with several episodes of bright red blood per rectum since his colonoscopy. Patient underwent a colonoscopy with Dr. Raymond of [facility] on 12/07/22. He takes Eliquis & Aspirin but these had been held for several days prior to his procedure. During the colonoscopy he had biopsies obtained from the terminal ileum. He was noted to have diverticulosis & internal hemorrhoids. The patient denies abdominal pain at present. Bleeding has stopped since admission. He offers no further concerns at present. Hemoglobin went from 14.4 to 12.2. No pertinent family history. Allergies Allergy/AdvReac Type Severity Reaction Status Date / Time Latex, Natural Rubber Allergy Unknown Unknown Verified 12/08/23 23:35 aspirin AdvReac Mild GI UPSET Unverified 12/08/23 23:33 Home Medications Medication Instructions Recorded Confirmed Type ascorbate calcium (vitamin C) 500 500 mg PO QAM 06/12/20 12/08/23 History mg tablet levothyroxine 75 mcg capsule 75 mcg PO QAM 06/12/20 12/08/23 History metoprolol succinate 25 mg capsule 12.5 mg PO QPM 06/12/20 12/08/23 History sprinkle, ext. release 24 hr apixaban 5 mg tablet (Eliquis) 5 mg PO BID 07/30/22 12/08/23 History coenzyme Q10 100 mg capsule (Co 100 mg PO QAM 07/30/22 12/08/23 History Q-10) lactobacillus combination no.4 3 3,000 mmu cells PO QAM 07/30/22 12/08/23 History billion cell capsule (Probiotic) multivitamin 1 tab PO QAM 07/30/22 12/08/23 History tamsulosin 0.4 mg capsule 0.4 mg PO HS 07/30/22 12/08/23 History B-complex with vitamin C 1 cap PO DAILY 07/22/23 12/08/23 History rosuvastatin 10 mg tablet 10 mg PO DAILY 07/22/23 12/08/23 History calcium carbonate 500 mg PO QAM 08/21/23 12/08/23 History aspirin 81 mg tablet,delayed 81 mg PO DAILY #30 tabs 08/22/23 12/08/23 Rx release (Adult Aspirin Regimen) losartan 25 mg tablet 25 mg PO QAM 12/08/23 12/08/23 History Patient History Medical History Acute CVA (cerebrovascular accident) MRI 08/21/2023 - Subcentimeter acute left posterior temporal lobe infarct. Chronic anticoagulation Marginal zone B-cell lymphoma DR [facility]- DX END OF 2020- TREATED W/ IMMUNE THERAPY INFUSIONS- IN REMISSION Atrial flutter Environmental allergies has not needed inhaler > 1yr Basal cell carcinoma (BCC) Mitral valve regurgitation Surgical History History of esophagogastroduodenoscopy (EGD) Hx of colonoscopy History of back surgery - 2020 Hx of cardiac catheterization 2011- mn- no stents History of kidney surgery History of mitral valve repair Hollis Israel - FOLLOWS W/ DR ACEVEDO, LAST VISIT 06/2022 History of sinus surgery History of hernia repair Social History Smoking Status: Former smoker Tobacco Type: Cigarettes Second Hand Exposure: No; Do You Dip or Chew Tobacco: No; Hx Alcohol Use: No Hx Substance Use: No Preferred Language: [place] Communication Ability: Effective Assistant To The President Required: No Beliefs That Will Affect Care: None marital status: Current Living Situation: Spouse current occupational status: retired Feels Safe at Home: Yes Assistive Devices: Denture - Upper, Denture - Lower and Glasses Review of Systems Constitutional: no fever and no chills Respiratory: no cough and no dyspnea Cardiovascular: no chest pain Gastrointestinal: no blood in stools (resolved since arrival to the hospital) and no melena Psychiatric: no problem reported Physical Exam Constitutional: well developed Respiratory: normal respiratory effort Cardiovascular: Rate/Rhythm: regular rate Gastrointestinal (Abdomen): normal bowel sounds, soft, nontender, no hepatosplenomegaly Psychiatric: Orientation: alert and oriented x 3 Results & Data Vital Signs (Past 12 Hours) Vital Signs Pulse Resp BP Pulse Ox O2 Del Method 12/09/23 07:29 76 12/09/23 04:00 72 16 97 Room Air 12/09/23 00:30 77 22 96 12/09/23 00:30 127/76 12/09/23 00:29 107/86 12/09/23 00:29 79 16 97 12/09/23 00:24 87 17 12/08/23 23:50 66 24 96 12/08/23 23:40 67 22 96 12/08/23 23:34 72 23 96 12/08/23 23:34 158/80 H 12/08/23 23:32 83 27 H 95 12/08/23 23:25 62 36 H 95 12/08/23 23:25 126/73 12/08/23 23:25 64 PG Care Time/CCT Total # of Minutes Spent Total Time Spent with Patient: Total time spent is greater than 50% in coordination of care (as documented) at patient's floor/unit and/or counseling patient: Coding Level of Care Code 33326 INT INP/OBS CARE 3/75MIN Diagnoses Acute GI bleeding K92.2
--- OUTSIDE RECORDS SUMMARY | 2023-12-09 11:43 | External Medical Summary | Summary of Care ---
Author Name Unknown Organization [facility] Address [address] [facility] [place] [address] Phone [phone] Care Team Providers Care [employer] Work Supervisor Name Role Phone Jaimerudolph Varsha Jones DO Primary Care Provider Reason for Visit * Reason Comments eRx-Medication Refill Encounter Details Date Type Department Care Team (Late st Contact Info) Description 12/04/2023 Refill Cardiology, [facility] [address] [facility] [place] [phone] Kaylynn Dickerson DO [address] [facility] [place] [address] HTN, goal below 140/90 Allergies Active Allergy Reactions Criticality Noted Date [...] as of this encounter (statuses as of 12/07/2023) Medications Medication Sig Dispensed Refills Start Date [...] times a day . 28 g 1 2 Active Levothyroxine Sodium 75 MCG Oral Tablet (Levoxyl) Take by mouth 1 Tablet in the morning. (at least 30 min prior to breakfast or other meds). 90 Tablet 1 2 Active Apixaban 5 MG Oral Tablet (Eliquis) Take 1 Tablet (5 mg) by mouth in the morning and 1 Tablet (5 mg) before bedtime. 60 Tablet 6 2 Active Sildenafil Citrate 20 MG Oral Tablet (Revatio) Take 3-5 tabs as needed 1 hour prior to intercourse 30 Tablet 3 Active Sulfacetamide Sodium-Sulfur 10-5 % External CreamIndications:Ros acea Apply to face once daily 28 g 1 3 Active Vitamin B Complex Oral Tablet Take 1 Tablet by mouth in the morning. 0 Active Loperamide HCl 2 MG Oral Tablet Take 1 Tablet by mouth 4 times a day as needed for Diarrhea. 0 Active Ubiquinol 100 MG Oral Capsule Take by mouth at bedtime. 0 Active Rosuvastatin Calcium 10 MG Oral Tablet (Crestor) Take 1 Tablet by mouth at bedtime. 0 Active Metoprolol Succinate ER 25 MG Oral Tablet Extended Release 24 Hour (toPROL XL)Indications:HTN, goal below 140/90,PSVT (paroxysmal supraventricular tachycardia) (HCC) Take 1/2 tab by mouth every evening 34 Tablet 11 4 Active Tamsulosin HCl 0.4 MG Oral Capsule (Flomax)Indications: Weak urinary stream Take 2 Capsules by mouth in the morning. Take at bedtime. 120 Capsule 6 4 Active Additional Information Patient taking differently:0.8 mg OralQPM-1999, Take at bedtime, Reported on 12/02/2023 Finasteride 5 MG Oral Tablet (Proscar) Take 1 Tablet by mouth in the morning. 90 Tablet 6 4 Active Additional Information Patient not taking.Reported on 10/13/2023 Aspirin 81 MG Oral Tablet Delayed Release Take 1 Tablet by mouth once a day on Wednesday, Wednesday, and Wednesday only. 0 Active Losartan Potassium 25 MG Oral Tablet (Cozaar)Indications: HTN, goal below 140/90 Take 1 Tablet by mouth in the morning. 34 Tablet 3 4 Active Losartan Potassium 25 MG Oral Tablet (Cozaar)Indications: HTN, goal below 140/90 Take 1 Tablet by mouth in the morning. 34 Tablet 3 4 024 Discontinued documented as of this encounter (statuses as of 12/07/2023) Active Problems Problem Noted Date Diagnosed Date [...] as of this encounter (statuses as of 12/07/2023) Resolved Problems Problem Noted Date Diagnosed Date [...] given to patient. Diverticulosis of colon 03/24/2005 05/0 03/2017 Mitral valve regurgitation 1 10/06/2021 documented as of this encounter (statuses as of 12/07/2023) Immunizations Name Administration Dates Next Due COVID-19 mRNA, LNP-s, No Pre serve, 2-Dose Series (Moderna) 05/02/2021,10/18/2020,09/20/2020 COVID-19, mRNA, LNP-s, PF, B ooster, 100mcg/0.5mg (Moderna) 10/13/2021 Pneumococcal Conjugate Vacc, 13 Valent (Prevnar) 12/03/2015 Pneumococcal Conjugate Vacci ne, 20-valent ([id number]) 02/26/2022 Pneumococcal Polysaccharide PPV23 (Pneumovax) 07/05/2006 Season [...] Date Smoking Tobacco: Former Cigarettes 1 30 0 08/23/1956 - 08/23/1986 Smokeless Tobacco: Never Alcohol Use Standard [...] encounter Miscellaneous Notes * Telephone Encounter - Kaylynn Dickerson DO - 12/07/2023 9:28 AM EDTSigned Prescriptions: Disp Refills Losartan Potassium 25 MG Oral Tablet (Coza*34 Tab*3 Sig: Take 1 Tablet by mouth in the morning. Authorizing Provider: KAYLYNN DICKERSON * Telephone Encounter - Kristie Santoro CMA - 12/06/2023 9:06 AM EDTPending Prescriptions: Disp Refills Losartan Potassium 25 MG Oral Tablet [Phar*34 Tab*3 Sig: Take 1 Tablet by mouth in the morning. * Telephone Encounter - Kristie Santoro CMA - 12/06/2023 9:06 AM EDT Did you pend patient's preferred pharmacy and medication before forwarding?yes Pharmacy: [id number] Pending Prescriptions: Disp Refills Losartan Potassium 25 MG Oral Tablet (Coz*34 Tab*3 Sig: Take 1 Tablet by mouth in the morning. Last Visit: 10/13/2023 (in office), Visit date not found (telemedicine) Next Visit: Visit date not found If no future appointments scheduled, and last appointment is greater than a year ago, please schedule patient for a follow-up appointment Last date the medication was ordered: 08-31-2023 Is this request for a controlled substance?No Urine Drug Screen:No results found. However, due to the size of the patient record, not all encounters were searched. Please check Results Review for a complete set of results. Patient Phone Numbers Labs: Lab Results Component Value Date/Time CREAT 1.2 12/03/2023 07:58 AM CREAT 1.20 04/13/2023 12:00 AM CREAT 1.4 (H) 07/22/2020 07:29 AM POTASSIUM 4.4 12/03/2023 07:58 AM POTASSIUM 4.3 04/13/2023 12:00 AM POTASSIUM 4.7 07/22/2020 07:29 AM TSH 2.349 04/13/2023 12:00 AM TSH 2.51 02/01/2020 07:03 AM LDLCALC 108 12/21/2022 07:26 AM LDLCALC 103 02/01/2020 07:03 AM LDLDIRECT NOT APPLICABLE 02/01/2020 07:03 AM LDLDIRECT 111 (H) 12/22/2008 09:52 AM ALT 12 12/03/2023 07:58 AM ALT 25 02/01/2020 07:03 AM HGBA1C 6.0 (H) 02/19/2022 07:26 AM HGBA1C 5.7 (H) 02/01/2020 07:03 AM documented in this encounter Plan of Treatment Upcoming Encounters Date Type Department Care Team (Late st Contact Info) Description 12/08/2023 1:45 PM EDT Hospital Encounter ENDO OSS[facility], Endoscopy Room [facility] [address] [place] [phone] Marilou Raymond, [address] [place] [id number] 12/08/2023 1:45 PM EDT - 12/08/2023 2:15 PM EDT Surgery ENDO [facility], Endoscopy Room [facility] [address] [place] [phone] Marilou Raymond, [address] [place] [id number] COLONOSCOPY FLEXIBLE PROXIMAL DIAGNOSTIC 12/10/2023 11:00 AM EDT Office Visit Urology Tj Damon [address] [place] [address] [place] [address] Mariza Martin PA-C [address] [place] [address] [place] [address] 12/20/2023 9:30 AM EDT Office Visit Hematology/Oncolog y [facility] [address] [place] [phone] Kristie Miranda CRNP [address] [facility] [place] [address] 01/04/2024 2:30 PM EDT Office [facility], [facility] [place] [address] Kyra Rose CRNP [address] [facility] [place] [address] 02/17/2024 7:30 AM EDT Laboratory Laboratory [facility] [address] [facility] [place] [phone] [facility] [address] [facility] [place] [address] 01/23/2025 11:20 AM EDT Office Visit Dermatology [facility] [address] [facility] [place] [address] Ayaka Alaniz PA-C [address] [facility] [place] [address] Scheduled Procedures Name Priority Associated Diagnoses Date/Ti me COLONOSCOPY FLEXIBLE PROXIMA L DIAGNOSTIC Diarrhea 12/08/2023 1:45 PM EDT Health Maintenance Due Date Last Done Comments CKD PHOS USE SMARTSET 53802 12/25/2009 12/25/2008, 1 08/31/2005 Depression Screening 03/13/2022 03/13/2021 Albumin/Creatinine Ratio 02/19/2023 02/19/2022, 01/22 HbA1c 02/19/2023 02/19/2022, 01/22, 02/01/2020, Additional history exists TSH 04/13/2024 04/13/2023, 05/0 08/2022, 02/19/2022, Additional history exists Influenza Vaccine (FLU shot) (Season Ended) 2024 07/06/2022, 06/03/2022, 05/24/2021, Additional history exists GFR 06/03/2024 12/03/2023, 08/23, 08/19/2023, Additional history exists CKD HGB USE SMARTSET 34909 12/02/202412/02, 12/03/2023, 09/09/2023, Additional history exists DTaP,Tdap,and Td Vaccines (2 - Td or Tdap) 02/22/2027 02/22/2017, 05/24/2008 Zoster Vaccines Completed 01/18/2019, 05/23, 11/14/2008 Pneumococcal Vaccine: 65+ Years Completed 02/26/2022, 12/03/2015, 07/05/2006 COVID-19 Vaccine Completed 06/03/2023, , 05/02/2021, Additional history exists GARDASIL-HPV IMMUNIZATION SERIES Aged Out No longer eligible based on patient's age to complete this topic Hepatitis B Aged Out No longer eligi ble based on patient's age to complete this topic MENINGOCOCCAL (MENACTRA/MENVEO) Aged Out No longer eligible based on patient's age to complete this topic documented as of this encounter Medical Devices Implanted Type Area Screen Maker Device Identifier Shelf Expiration Date Model / Serial / Lot Ring Cantu 27mm [id number] - [id number] Implanted:Qty: 1 on 06/02/2012 at OR [facility] N/A: Heart [employer] : CARDIAC SURGERY 10/08/2016 [id number] / [id number] / Mesh Marlex Large [id number] - [id number] Implanted:Qty: 1 on 01/07/2018 by Ori Burleson DO at OR [facility] Right: Groin CR BARD : DAVOL 10/20/2022 [id number] / / [id number] Description:#1 Mesh Marlex Large [id number] - [id number] Implanted:Qty: 1 on 01/07/2018 by Ori Burleson DO at OR [facility] Right: Groin CR BARD : DAVZAHEER 10/20/2022 [id number] / / [id number] Description:#2 documented as of this encounter Visit Diagnoses Diagnosis HTN, goal below 140/90 Unspecified essential hypertension Diarrhea documented in this encounter Advance Directives Latest [...] and were consensually agreed upon. Care Teams [employer] Work Supervisor Relationship Specialty Start Date End Date Varsha Casiano DO [address] [place] [address] PCP - General Family Medicine 01/31/17 documented as of this encounter
--- OUTSIDE RECORDS SUMMARY | 2023-12-09 11:43 | External Medical Summary | Summary of Care ---
Author Name Unknown Organization [facility] Address [address] [facility] [place] [address] Phone [phone] Care Team Providers Care Telephone Order Supervisor Name Role Phone JaimerudolphVarsha DO Primary Care Provider Reason for Visit * Reason Comments Outpatient Testing Encounter Details Date Type Department Care Team (Late st Contact Info) Description 12/03/2023 8:10 AM EDT Laboratory Laboratory [facility] [place] [address] [place] [phone] [place], Lab Scenery [address] [place] [address] Splenic marginal zone b-cell lymphoma (HCC) Allergies [...] as of this encounter (statuses as of 12/03/2023) Medications Medication Sig Dispensed Refills Start Date [...] before bedtime. 60 Tablet 6 06/30/2022 Active Sildenafil Citrate 20 MG Oral Tablet (Revatio) Take 3-5 tabs as needed 1 hour prior to intercourse 30 Tablet 10/20/2022 Active Sulfacetamide Sodium-Sulfur 10-5 % External CreamIndications:Jaki cea Apply to face once daily 28 g [...] XL)Indications:HTN, goal below 140/90,PSVT (paroxysmal supraventricular tachycardia) ([facility]) Take 1/2 tab by mouth every evening 34 Tablet 11 08/25/2023 Active Tamsulosin HCl 0.4 MG Oral Capsule (Flomax)Indications:W eak urinary stream Take 2 Capsules by mouth in the morning. Take at bedtime. 120 Capsule 08/27/2023 Active Additional Information Patient taking differently:0.8 mg OralQPM-2000, Take at bedtime, Reported on 12/02/2023 Finasteride 5 MG Oral Tablet (Proscar) Take 1 Tablet by mouth in the morning. 90 Tablet 6 08/27/2023 Active Additional Information Patient not taking.Reported on 10/13/2023 Losartan Potassium 25 MG Oral Tablet (Cozaar)Indications:H TN, goal below 140/90 Take 1 Tablet by mouth in the morning. 34 Tablet 3 08/31/2023 Active Aspirin 81 MG Oral Tablet Delayed Release Take 1 Tablet by mouth once a day on Wednesday, Wednesday, and Wednesday only. 0 Active documented as of this encounter (statuses as of 12/03/2023) Active Problems Problem Noted Date Diagnosed Date [...] as of this encounter (statuses as of 12/03/2023) Resolved Problems Problem Noted Date Diagnosed Date [...] given to patient. Diverticulosis of colon 03/24/2005 0503/2017 Mitral valve regurgitation 1 10/06/2021 documented as of this encounter (statuses as of 12/03/2023) Immunizations Name Administration Dates Next Due COVID-19 mRNA, LNP-s, No Pre serve, 2-Dose Series (Moderna) 05/02/2021,10/18/2020,09/20/2020 COVID-19, mRNA, LNP-s, PF, B ooster, 100mcg/0.5mg (Moderna) 10/13/2021 Pneumococcal Conjugate Vacc, 13 Valent (Prevnar) 12/03/2015 Pneumococcal Conjugate Vacci ne, 20-valent ([id number]) 02/26/2022 Pneumococcal Polysaccharide PPV23 (Pneumovax) 07/05/2006 Season [...] Frequency of Alcohol Consumption 2-4 times a wed02/29/2020 Average Number of Drinks 1 or 2 [...] EDT Hospital Encounter [facility] Endoscopy Room [facility] [address] [place] [phone] Marilou Raymond, DO [address] [place] [address] 12/08/2023 1:45 PM EDT - 12/08/2023 2:15 PM EDT Surgery ENDO [facility], Endoscopy Room [facility] [address] [place] [phone] Marilou Raymond DO [address] [place] [address] COLONOSCOPY FLEXIBLE PROXIMAL DIAGNOSTIC 12/10/2023 11:00 AM EDT Office Visit Urology Tj Damon [address] [place] [address] [place] [address] Mariza Martin PA-C [address] [place] [address] [place] [address] 12/20/2023 9:30 AM EDT Office Visit Hematology/Oncolog y [facility] [place] [address] [facility] [place] [phone] Kristie Miranda CRNP [address] [facility] [place] [address] 01/04/2024 2:30 PM EDT Office Visit Gastroenterology, [facility] [address] [place] [address] Kyra Rose CRNP [address] [place] [address] 02/17/2024 7:30 AM EDT Laboratory Laboratory [facility] [place] [address] [place] [phone] [place], [address] [place] [address] 01/23/2025 11:20 AM EDT Office Visit Dermatology [facility] [place] [address] [facility] [place] [address] Ayaka Alaniz PA-C [address] [facility] [place] [address] Pending Results Name Type Priority Associated Diagnoses Date /Time COMPREHENSIVE METABOLIC PANEL Lab STAT Splenic marginal zone b-cell lymphoma (HCC) 12/03/2023 7:58 AM EDT LD Lab STAT Splenic marginal zone b-cell lymphoma (HCC) 12/03/2023 7:58 AM EDT Scheduled Procedures Name Priority Associated Diagnoses Date/Ti me COLONOSCOPY FLEXIBLE PROXIMA L DIAGNOSTIC Diarrhea 12/08/2023 1:45 PM EDT Health Maintenance Due Date Last Done Comments CKD PHOS USE SMARTSET 99077 12/25/2009 12/25/2008, 1 08/31/2005 Depression Screening 03/13/2022 03/13/2021 Albumin/Creatinine Ratio 02/19/2023 02/19/2022, 01/22 HbA1c 02/19/2023 02/19/2022, 01/22, 02/01/2020, Additional history exists GFR 03/09/2024 09/09/2023, 07/24, 06/30/2023, Additional history exists TSH 04/13/2024 04/13/2023, 05/0 08/2022, 02/19/2022, Additional history exists Influenza Vaccine (FLU shot) (Season Ended) 2024 07/06/2022, 06/03/2022, 05/24/2021, Additional history exists CKD HGB USE SMARTSET 05658 09/09/202412/02, 12/03/2023, 09/09/2023, Additional history exists DTaP,Tdap,and Td [...] this encounter Medical Devices Implanted Type Area Fence Supervisor Device Identifier Shelf Expiration Date Model / Serial / Lot Ring Pepe 27mm [id number] - [id number] Implanted:Qty: 1 on 06/02/2012 at OR [facility] [place] N/A: Heart [employer] : CARDIAC SURGERY 10/08/2016 [id number] / [id number] / Mesh Marlex Large [id number] - [id number] Implanted:Qty: 1 on 01/07/2018 by Ori Burleson, DO at OR [facility] Right: Groin CR BARD : DAVOL 10/20/2022 [id number] / / [id number] Description:#1 Mesh Marlex Large [id number] - [id number] Implanted:Qty: 1 on 01/07/2018 by Ori Burleson, DO at OR [facility] Right: Groin CR BARD : DAVOL 10/20/2022 [id number] / / [id number] Description:#2 documented as of this encounter Procedures Procedure Name Priority Date/Time Associated Diagnosis Comments DIFFERENTIAL, AUTOMATED STAT 12/03/2023 7:58 AM EDT Splenic marginal zone b-cell lymphoma (HCC) CBC STAT 12/03/2023 7:58 AM EDT Splenic marginal zone b-cell lymphoma (HCC) CBC STAT 12/03/2023 7:58 AM EDT Splenic marginal zone b-cell lymphoma (HCC) documented in this encounter Results * (ABNORMAL) DIFFERENTIAL, AUTOMATED (12/03/2023 7:58 AM EDT) WBC 8.04 4.00 - 10.80 K/uL 12/03/2023 8:05 AM EDT [facility] [place] 56-02 Neutrophils % 71.4 40.0 - 75.0 % 12/03/2023 8:05 AM EDT [facility] [place] 56-02 Lymphocytes % 16.5(L) 18.0 - 42.0 % 12/03/2023 8:05 AM EDT [facility] [place] 56-02 Monocytes % 10.2 1.0 - 11.0 % 12/03/2023 8:05 AM EDT [facility] 56 Eosinophils % 1.4 0.0 - 6.0 % 12/03/2023 8:05 AM EDT [facility] 56 Basophils % 0.5 0.0 - 2.0 % 12/03/2023 8:05 AM EDT [facility] 56 Absolute Neutrophils 5.74 1.80 - 7.70 K/uL 12/03/2023 8:05 AM EDT [facility] 56 Absolute Lymphocytes 1.33 1.00 - 4.80 K/ul 12/03/2023 8:05 AM EDT [facility] 56 Absolute Monocytes 0.82 0.00 - 1.10 K/uL 12/03/2023 8:05 AM EDT [facility] 56 Absolute Eosinophils 0.11 0.00 - 0.70 K/uL 12/03/2023 8:05 AM EDT [facility] Absolute Basophils 0.04 0.00 - 0.20 K/uL 12/03/2023 8:05 AM EDT [facility] Blood Venous blood specimen / Unknown Venipuncture / Unknown 12/03/2023 7:58 AM EDT 12/03/2023 7:58 AM EDT Kristie NELSON LAB BLOOD ORDER [facility] [address] [place] [address] * CBC (12/03/2023 7:58 AM EDT) WBC 8.04 4.00 - 10.80 K/uL 12/03/2023 8:05 AM EDT [facility] RBC 4.91 4.50 - 5.25 M/uL 12/03/2023 8:05 AM EDT [facility] 56 HGB 14.3 14.0 - 16.8 g/dL 12/03/2023 8:05 AM EDT [facility] 56 HCT 44.4 40.0 - 48.4 % 12/03/2023 8:05 AM EDT [facility] 56 MCV 90.4 82.0 - 99.5 fL 12/03/2023 8:05 AM EDT [facility] [place] 56 MCH 29.1 27.0 - 34.0 pg 12/03/2023 8:05 AM EDT [facility] 56 MCHC 32.2 32.0 - 36.0 g/dL 12/03/2023 8:05 AM EDT [facility] 56 RDW 13.9 11.5 - 15.5 % 12/03/2023 8:05 AM EDT [facility] 56 PLT 171 140 - 400 K/uL 12/03/2023 8:05 AM EDT [facility] 56 MPV 9.9 6.6 - 11.1 fL 12/03/2023 8:05 AM EDT [facility] 56 Blood Venous blood specimen / Unknown Venipuncture / Unknown 12/03/2023 7:58 AM EDT 12/03/2023 7:58 AM EDT Kristie NELSON LAB BLOOD ORDER [facility] [address] [place] [address] documented in this encounter Visit Diagnoses Diagnosis 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 Care Teams Telephone Order Supervisor Relationship Specialty Start Date End Date Varsha Casiano DO [address] [facility] [place] [address] PCP - General Family Medicine 01/31/17 documented as of this encounter
--- OUTSIDE RECORDS SUMMARY | 2023-12-09 11:44 | External Medical Summary ---
Author Name Unknown Address Unknown Organization [id number]:[facility] [place] [address] Laboratory Report Ordering Provider Test Date Status KAYLYNN RIGGS 12/03/2023 07:58:28 Final Observation Date Value Abnormality Reference (Units ) Status SYNC LEUKOCYTES IN BLOOD BY AUTOMATED COUNT 12/03/2023 07:58:28 8.04 4.00-10.80 (K/uL) Final Segs 12/03/2023 07:58:28 71.4 40.0-75.0 (%) Final Lymphs % 12/03/2023 07:58:28 16.5 Below low normal 18.0-42.0 (%) Final Monos 12/03/2023 07:58:28 10.2 1.0-11.0 (%) Final Eosinophils 12/03/2023 07:58:28 1.4 0.0-6.0 (%) Final Basos 12/03/2023 07:58:28 0.5 0.0-2.0 (%) Final Absolute Segs 12/03/2023 07:58:28 5.74 1.80-7.70 (K/uL) Final Lymphs, absolute 12/03/2023 07:58:28 1.33 1.00-4.80 (K/ul) Final Monos, Abs 12/03/2023 07:58:28 0.82 0.00-1.10 (K/uL) Final Eos, Abs 12/03/2023 07:58:28 0.11 0.00-0.70 (K/uL) Final Basos, Abs 12/03/2023 07:58:28 0.04 0.00-0.20 (K/uL) Final Performing Location [facility] [place] [address]
--- OUTSIDE RECORDS SUMMARY | 2023-12-09 11:44 | External Medical Summary ---
Author Name Unknown Address Unknown Organization K09:[facility] [place] [address] Laboratory Report Ordering Provider Test Date Status KAYLYNN RIGGS 12/03/2023 07:58:28 Final Observation Date Value Abnormality Reference (Units ) Status BUN 12/03/2023 07:58:28 21 Above high normal 6-20 (mg/dL) Final Creatinine 12/03/2023 07:58:28 1.2 0.6-1.2 (mg/dL) Final Glomerular filtration rate/1.73 sq M.predicted [Volume Rate/Area] in Serum, Plasma or Blood by Creatinine-based formula (CKD-EPI) 12/03/2023 07:58:28 58 Below low normal >=60 (mL/min) Final eGFR is calculated based on the CKD-EPI 2020 equation Sodium 12/03/2023 07:58:28 141 135-146 (m mol/L) Final Potassium 12/03/2023 07:58:28 4.4 3.5-5.1 (m mol/L) Final Cl 12/03/2023 07:58:28 103 98-107 (mm ol/L) Final CO2 12/03/2023 07:58:28 28 22-32 (mmo l/L) Final Anion gap 12/03/2023 07:58:28 10 7-15 (mmol /L) Final Glucose 12/03/2023 07:58:28 108 70-120 (mg /dL) Final Albumin 12/03/2023 07:58:28 4.0 3.8-5.0 (g /dL) Final AST (Aspartate aminotransferase) 12/03/2023 07:58:28 22 10-50 (U/L) Fin al Alk Phos 12/03/2023 07:58:28 136 Above high normal 35 -130 (U/L) Final Bilirubin, Total 12/03/2023 07:58:28 0.4 <=1 .2 (mg/dL) Final Calcium 12/03/2023 07:58:28 9.4 8.4-10.2 ( mg/dL) Final Protein 12/03/2023 07:58:28 6.5 6.0-8.3 (g /dL) Final ALT (Alanine aminotransferase) 12/03/2023 07:58:28 12 10-50 (U/L) Stan clinton Performing Location [facility] [address] [place] [address]
--- OUTSIDE RECORDS SUMMARY | 2023-12-09 11:44 | External Medical Summary | Summary of Care ---
Author Name Unknown Organization [facility] Address [address] [place] [address] Phone [phone] Care Team Providers Care Meat Pickler Name Role Phone Varsha Casiano Primary Care Provider Reason for Visit * Reason Onset Date Comments Pharmacy Questions 08/31/2023 Medication in structions confirmation needed. Tamsulosin HCl 0.4 MG Oral Capsule (Flomax) Encounter Details Date Type Department Care Team (Late st Contact Info) Description 08/31/2023 Telephone Urology, [place] [address] [place] [address] Berry Castillo PA-C [address] [place] [address] Pharmacy Questions (Medication instruction... Allergies Active Allergy Reactions Criticality Noted Date [...] as of this encounter (statuses as of 11/30/2023) Medications Medication Sig Dispensed Refills Start Date [...] Apply to face once daily 28 g 10/20/2022 Active Vitamin B Complex Oral Tablet [...] by mouth in the morning. 0 Active Metoprolol Succinate ER 25 MG Oral Tablet Extended Release 24 Hour (toPROL XL)Indications:HTN, goal below 140/90,PSVT (paroxysmal supraventricular tachycardia) (HCC) Take 1/2 tab by mouth every evening 34 Tablet 08/25/2023 Active Tamsulosin HCl 0.4 MG Oral Capsule (Flomax)Indications:W eak urinary stream Take 2 Capsules by mouth in the morning. Take at bedtime. 120 Capsule 6 08/27/2023 Active Finasteride 5 MG Oral Tablet (Proscar) Take 1 Tablet by mouth in the morning. 90 Tablet 6 08/27/2023 Active Additional Information Patient not taking.Reported on 10/13/2023 documented as of this encounter (statuses as of 11/30/2023) Active Problems Problem Noted Date Diagnosed Date [...] as of this encounter (statuses as of 11/30/2023) Resolved Problems Problem Noted Date Diagnosed Date [...] as of this encounter (statuses as of 11/30/2023) Immunizations Name Administration Dates Next Due COVID-19 mRNA, LNP-s, No Pre serve, 2-Dose Series (Moderna) 05/02/2021,10/18/2020,09/20/2020 COVID-19, mRNA, LNP-s, PF, B ooster, 100mcg/0.5mg (Moderna) 10/13/2021 Pneumococcal Conjugate Vacc, 13 Valent (Prevnar) 12/03/2015 Pneumococcal Conjugate Vacci ne, 20-valent ([id number]) 02/26/2022 Pneumococcal Polysaccharide PPV23 (Pneumovax) 07/05/2006 Season [...] encounter Miscellaneous Notes * Telephone Encounter - Susanna Clarke OSA - 08/31/2023 12:49 PM EST [facility] Mail order pharmacy calling for confirmation of direction on medication: Tamsulosin HCl 0.4 MG Oral Capsule (Flomax) . Instructions say: Sig - Route: Take 2 Capsules by mouth in the morning. Take at bedtime. - Oral Please call to give verbal instruction. [phone] / Reference number [id number] documented in this encounter Plan of Treatment Upcoming Encounters Date Type Department Care Team (Late st Contact Info) Description 12/08/2023 1:45 PM EDT Hospital Encounter [facility]O [facility], Endoscopy Room [facility] [address] [place] [phone] Marilou Raymond, DO [address] [place] [address] 12/08/2023 1:45 PM EDT - 12/08/2023 2:15 PM EDT Surgery ENDO [facility], Endoscopy Room [facility] [address] [place] [phone] Marilou Raymond, DO [address] [place] [address] COLONOSCOPY FLEXIBLE PROXIMAL DIAGNOSTIC 12/10/2023 11:00 AM EDT Office Visit Urology Tj Damon [address] [place] [address] [place] [address] Mariza Martin PA-C [address] [place] [address] [place] [address] 12/20/2023 9:30 AM EDT Office Visit Hematology/Oncolog y [facility] [address] [facility] [place] [phone] Kristie Miranda CRNP [address] [facility] [place] [address] 01/04/2024 2:30 PM EDT Office Visit Gastroenterology, [facility] [address] [place] [address] Kyra Rose CRNP [address] [facility] [place] [address] 02/17/2024 7:30 AM EDT Laboratory Laboratory [facility] [address] [place] [phone] [place], Lab [place] [address] [address] [facility] [place] [address] 01/23/2025 11:20 AM EDT Office Visit Dermatology [facility] [address] [place] [address] Ayaka Alaniz PA-C [address] [facility] [place] [address] Scheduled Procedures Name Priority Associated Diagnoses Date/Ti me COLONOSCOPY FLEXIBLE PROXIMA L DIAGNOSTIC Diarrhea 12/08/2023 1:45 PM EDT Health Maintenance Due Date Last Done Comments CKD PHOS USE SMARTSET 52357 12/25/2009 12/25/2008, 1 08/31/2005 Depression Screening 03/13/2022 03/13/2021 Albumin/Creatinine Ratio 02/19/2023 02/19/2022, 01/22 HbA1c 02/19/2023 02/19/2022, 01/22, 02/01/2020, Additional history exists GFR 03/09/2024 09/09/2023, 07/24, 06/30/2023, Additional history exists TSH 04/13/2024 04/13/2023, 05/0 08/2022, 02/19/2022, Additional history exists Influenza Vaccine (FLU shot) (Season Ended) 2024 07/06/2022, 06/03/2022, 05/24/2021, Additional history exists CKD HGB USE SMARTSET 04320 09/09/202409/09, 09/09/2023, 08/19/2023, Additional history exists DTaP,Tdap,and Td Vaccines (2 [...] this encounter Medical Devices Implanted Type Area Dev Manager Device Identifier Shelf Expiration Date Model / Serial / Lot Ring Cantu 27mm [id number] - [id number] Implanted:Qty: 1 on 06/02/2012 at OR [facility] [place] N/A: Heart [employer] : CARDIAC SURGERY 10/08/2016 [id number] / [id number] / Mesh Marlex Large [id number] - [id number] Implanted:Qty: 1 on 01/07/2018 by Ori Burleson, DO at OR [facility] Right: Groin CR BARD : DAVOL 10/20/2022 [id number] / / [id number] Description:#1 Mesh Marlex Large [id number] - [id number] Implanted:Qty: 1 on 01/07/2018 by Ori Burleson, DO at OR [facility] Right: Groin CR BARD : DAVOL 10/20/2022 [id number] / / [id number] Description:#2 documented as of this encounter Advance [...] and were consensually agreed upon. Care Teams Meat Pickler Relationship Specialty Start Date End Date Varsha Casiano DO [address] [place] [address] PCP - General Family Medicine 01/31/17 documented as of this encounter
--- OUTSIDE RECORDS SUMMARY | 2023-12-09 11:44 | External Medical Summary ---
Author Name Unknown Address Unknown Organization K09:[facility] [place] [address] Laboratory Report Ordering Provider Test Date Status KAYLYNN RIGGS 12/03/2023 07:58:28 Final Observation Date Value Abnormality Reference (Units ) Status WBC, Total 12/03/2023 07:58:28 8.04 4.00-10.8 0 (K/uL) Final RBC 12/03/2023 07:58:28 4.91 4.50-5.25 (M/uL) Final Hemoglobin 12/03/2023 07:58:28 14.3 14.0-16.8 (g/dL) Final HCT 12/03/2023 07:58:28 44.4 40.0-48.4 (%) Final MCV 12/03/2023 07:58:28 90.4 82.0-99.5 (fL) Final MCH 12/03/2023 07:58:28 29.1 27.0-34.0 (pg) Final MCHC 12/03/2023 07:58:28 32.2 32.0-36.0 (g/dL) Final RDW 12/03/2023 07:58:28 13.9 11.5-15.5 (%) Final Platelets 12/03/2023 07:58:28 171 140-400 (K /uL) Final MPV 12/03/2023 07:58:28 9.9 6.6-11.1 ( fL) Final Performing Location [facility] [place] [address]
--- OUTSIDE RECORDS SUMMARY | 2023-12-09 11:44 | External Medical Summary | Summary of Care ---
Author Name Unknown Organization [facility] Address [address] [facility] [place] [address] Phone [phone] Care Team Providers Care Customer Supply Coordinator Name Role Phone Stephenie Maddox Karen DO Primary Care Provider Reason for Visit * Reason Comments Skin Check Routine skin cancer. Reports new spots, scalp, nose, back of neck. Hx: Bcc Encounter Details Date Type Department Care Team (Late st Contact Info) Description 10/26/2023 11:20 AM EST Office Visit Dermatology [facility] [address] [place] [address] Ayaka Alaniz PA-C [address] [facility] [place] [address] Actinic keratosis*; Rosacea; Seborrheic keratosis; History of nonmelanoma skin cancer; Skin exam, screening for cancer Allergies Active Allergy Reactions Criticality Noted Date [...] as of this encounter (statuses as of 10/26/2023) Medications Medication Sig Dispensed Refills Start Date [...] 2 times a day . 28 g 02/25/2022 Active Levothyroxine Sodium 75 MCG Oral [...] the morning. 34 Tablet 3 08/31/2023 Active documented as of this encounter (statuses as of 10/26/2023) Active Problems Problem Noted Date Diagnosed Date [...] as of this encounter (statuses as of 10/26/2023) Resolved Problems Problem Noted Date Diagnosed Date [...] as of this encounter (statuses as of 10/26/2023) Immunizations Name Administration Dates Next Due COVID-19 mRNA, LNP-s, No Pre serve, 2-Dose Series (Moderna) 05/02/2021,10/18/2020,09/20/2020 COVID-19, mRNA, LNP-s, PF, B ooster, 100mcg/0.5mg (Moderna) 10/13/2021 Pneumococcal Conjugate Vacc, 13 Valent (Prevnar) 12/03/2015 Pneumococcal Conjugate Vacci ne, 20-valent ([id number]) 02/26/2022 Pneumococcal Polysaccharide PPV23 (Pneumovax) 07/05/2006 Season [...] No 09/29/2018 documented as of this encounter Progress Notes * Daquan Clarke MD - 10/26/2023 12:29 PM EST I have reviewed the charting notes and orders and associated images and agree with the assessment and plan of Ayaka Mack PA-C . Daquan Clarke MD., Dermatology [facility] [address] [place] [address] , [place] [id number] * Ayaka Alaniz PA-C - 10/26/2023 11:10 AM EST Nursing Notes: Leelee Guillory, PERSONAL CARE WORKER 10/26/23 1126 Signed Patient identified by name and date. Chief Complaint Patient presents with Skin Check Routine skin cancer. Reports new spots, scalp, nose, back of neck. Hx: Bcc SUBJECTIVE: HPI: Mac Mullins is a 82 year old male who is an established patient seen for follow-up full skin check Last OV 10/20/22 C/o new spots on scalp, nose and back of neck Hx of BCC L cheek 2014, L helix 2013 Hx of rosacea, treating with sulfacetamide 10% cream intermittently with clearance REVIEW OF SYSTEMS: See HPI- all other findings negative Constitutional: (-) fever, chills, sweats, weight loss Cardiovascular: (-) lower extremity edema Skin: (-) no rash or new or changing moles or skin lesions MEDICA TIONS: Current Outpatient Medications Medication Sig Dispense Refill MULTIVITAMINS PO CAPS one capsule daily Lactobacillus (PROBIOTIC ACIDOPHILUS) CAPS Take by mouth daily. Calcium Carbonate-Vitamin D 500-5 MG-MCG Oral Tablet Take 1 Tablet by mouth in the morning. Vitamin C 250 MG Oral Tablet (Ascorbic Acid) Take 1 Tablet by mouth in the morning. Hydrocortisone (Perianal) 2.5 % External Cream (Anusol-HC) Administer into the rectum 2 times a day. 28 g 1 Levothyroxine Sodium 75 MCG Oral Tablet (Levoxyl) Take by mouth 1 Tablet in the morning. (at least 30 min prior to breakfast or other meds). 90 Tablet 1 Apixaban 5 MG Oral Tablet (Eliquis) Take 1 Tablet (5 mg) by mouth in the morning and 1 Tablet (5 mg) before bedtime. 60 Tablet 6 Sildenafil Citrate 20 MG Oral Tablet (Revatio) Take 3-5 tabs as needed 1 hour prior to intercourse 30 Tablet 11 Sulfacetamide Sodium-Sulfur 10-5 % External Cream Apply to face once daily 28 g 1 Vitamin B Complex Oral Tablet Take 1 Tablet by mouth in the morning. Loperamide HCl 2 MG Oral Tablet Take 1 Tablet by mouth 4 times a day as needed for Diarrhea. Ubiquinol 100 MG Oral Capsule Take by mouth. Rosuvastatin Calcium 10 MG Oral Tablet (Crestor) Take 1 Tablet by mouth in the morning. Metoprolol Succinate ER 25 MG Oral Tablet Extended Release 24 Hour (toPROL XL) Take 1/2 tab by mouth every evening 34 Tablet 11 Tamsulosin HCl 0.4 MG Oral Capsule (Flomax) Take 2 Capsules by mouth in the morning. Take at bedtime. 120 Capsule 6 Finasteride 5 MG Oral Tablet (Proscar) Take 1 Tablet by mouth in the morning. (Patient not taking: Reported on 10/13/2023) 90 Tablet 6 Losartan Potassium 25 MG Oral Tablet (Cozaar) Take 1 Tablet by mouth in the morning. 34 Tablet 3 No current facility-administered medications for this visit. ALLERG Y: Aspirin, Ciprofloxacin, Latex, and Octacosanol OBJECTIVE: GEN: Healthy, alert, no distress, appears oriented, pleasant and cooperative. PSYCH: Appropriate mood and affect, alert SKIN: Detailed exam of scalp, hair, face including lids and lips, ears, neck, chest, back, abdomen,buttocks, bilateral upper extremities and bilateral lower extremities including the nails and digits was completed and are within normal limits with the following exceptions: 1. rough pink scaling patches on crown of scalp and R nondenominational 2. Scattered benign appearing lesions over examined skin including scattered benign and relatively monomorphic appearing melanocytic nevi, waxy flesh- colored, greyish brown benign and non-inflamed appearing stuck-on papules and plaques, benign and uniform appearing brown macules and patches in sun exposed areas, bright red benign appearing dome-shaped papules and macules and solar elastosis and evident photodamage of sunexposed skin. 3. Scar L cheek and L helix ASSESSMENT/PLAN: 1. Actinic Keratosis -Educated on premalignant potential and small risk of developing into a SCC -Discussed treatment options including cryotherapy. Patient prefers cryotherapy. -Cryosurgery procedure, risks and benefits explained to the patient. Specifically, side effects including blistering, hyperpigmentation, hypopigmentation, scar or pain at procedure site was discussedand patient verbalized understanding. Consent was obtained by me. Patient, site and procedure verified. Cryotherapy was performed with Liquid Nitrogen via cryo spray unit to 3 lesions. Location notedin physical exam. Post op course explained. -Counseled on importance of sun protection with sunscreen of at least SPF 30 and protective clothing. -Discussed importance of yearly skin checks and to contact our office if he notices any new or changes skin lesion. 2.. Rosacea - recommend to continue sulfacetamide sodium 10% cream daily 3. Seborrheic Keratosis -Reassured of the benign nature of lesion -Discussed with patient that they may get more of these lesions in the future -If there are any lesions that become irritated, bleed, or painful to return to clinic for evaluation -No current treatment necessary at this time 4. H/o NMSC - no recurrence, monitor 5. Routine Skin Examination For Skin Cancer -Educated patient on ABCDE's. -Advised patient that if they notice any of these changes to please call for a follow-up appointment as soon as possible. -Counseled patient on criteria for good sunscreen including SPF 30 or higher, broad spectrum (UVA and UVB) and water resistant (up to 40 to 80 minutes). Advised to reapply sunscreen every 2 hours andafter swimming or profuse sweating. Advised to wear protective clothing when out in the sun including long sleeved shirt, pants, wide-brimmed hat and sunglasses. Informed to seek shade during 10 AM to 4 PM when the sun's rays are the strongest. -Advised to perform routine (at least once a year) skin self-examinations. Advised to contact theirdermatologist immediately if they notice any new or changing skin lesions. Patient alone today. Follow-up: 1 year Photos taken, patient consented to photos taken. Applicable photos (if any) and chart reviewed by Dr. Daquan Clarke The patient was encouraged to contact me with any further questions or concerns. Ayaka Alaniz PA-C 10/26/23 documented in this encounter Nursing Notes * Leelee Guillory LPN - 10/26/2023 11:26 AM EST Patient identified by name and date. Chief Complaint Patient presents with Skin Check Routine skin cancer. Reports new spots, scalp, nose, back of neck. Hx: Bcc documented in this encounter Plan of Treatment Upcoming Encounters Date Type Department Care Team (Late st Contact Info) Description 11/25/2023 7:30 AM EDT Laboratory Laboratory [facility] [place] [address] [place] [phone] [place], Lab [address] [place] [address] 12/07/2023 1:30 PM EDT Office Visit Gastroenterology, [facility] [address] [place] [address] Kyra Rose CRNP [address] [place] [address] 12/08/2023 1:45 PM EDT Hospital Encounter ENDO [facility], Endoscopy Room [facility] [address] [place], [place] [phone] Marilou Raymond, DO [address] [place], [place] [address] 12/08/2023 1:45 PM EDT - 12/08/2023 2:15 PM EDT Surgery ENDO [facility], Endoscopy Room [facility] [address] [place] [phone] Marilou Raymond, DO [address] [place] [address] COLONOSCOPY FLEXIBLE PROXIMAL DIAGNOSTIC 02/17/2024 7:30 AM EDT Laboratory Laboratory [facility] [address] [facility] [place] [phone] [place]a Lab [facility] [address] [facility] [place] [address] 02/25/2024 2:00 PM EDT Office Visit Hematology/Oncolog y [facility] [address] [facility] [place] [phone] Kristie Miranda, OMAR [address] [facility] [place] [phone] 01/23/2025 11:20 AM EDT Office Visit Dermatology [facility] [place] [address] [facility] [place] [address] Ayaka Alaniz, PA-C [address] [facility] [place] [address] Scheduled Procedures Name Priority Associated Diagnoses Date/Ti me COLONOSCOPY FLEXIBLE PROXIMA L DIAGNOSTIC Diarrhea 12/08/2023 1:45 PM EDT Health Maintenance Due Date Last Done Comments CKD PHOS USE SMARTSET 10810 12/25/2009 12/25/2008, 1 08/31/2005 Depression Screening 03/13/2022 03/13/2021 Albumin/Creatinine Ratio 02/19/2023 02/19/2022, 01/22 HbA1c 02/19/2023 02/19/2022, 01/22, 02/01/2020, Additional history exists Influenza Vaccine (FLU shot) (#1) 2023 07/06/2022, 06/03/2022, 05/24/2021, Additional history exists GFR 03/09/2024 09/09/2023, 07/24, 06/30/2023, Additional history exists TSH 04/13/2024 04/13/2023, 08/2022, 02/19/2022, Additional history exists CKD HGB USE SMARTSET 47970 09/09/202409/09, 09/09/2023, 08/19/2023, Additional history exists DTaP,Tdap,and [...] this encounter Medical Devices Implanted Type Area Hat Measurer Device Identifier Shelf Expiration Date Model / Serial / Lot Ring Cantu 27mm [id number] - [id number] Implanted:Qty: 1 on 06/02/2012 at [place] [facility] [place]: Heart [employer] : CARDIAC SURGERY 10/08/2016 [id number] / [id number] / Mesh Marlex Large [id number] - [id number] Implanted:Qty: 1 on 01/07/2018 by Ori Burleson DO at OR [facility] Right: Groin CR BARD : DAVOL 10/20/2022 [id number] / / [id number] Description:#1 Mesh Marlex Large [id number] - [id number] Implanted:Qty: 1 on 01/07/2018 by Ori Burleson DO at OR [facility] Right: Groin CR BARD : DAVOL 10/20/2022 [id number] / / [id number] Description:#2 documented as of this encounter Visit Diagnoses Diagnosis Actinic keratosis- Primary Rosacea Seborrheic keratosis Other seborrheic keratosis History of nonmelanoma skin cancer Personal history of other malignant neoplasm of skin Skin exam, screening for cancer Screening for malignant neoplasm of the skin Diarrhea documented in this encounter Advance Directives [...] and were consensually agreed upon. Care Teams Customer Supply Coordinator Relationship Specialty Start Date End Date Varsha Casiano DO [address] [place], [place] [address] PCP - General Family Medicine 01/31/17 documented as of this encounter
--- OUTSIDE RECORDS SUMMARY | 2023-12-09 11:44 | External Medical Summary | Summary of Care ---
Author Name Unknown Organization [facility] Address [address] [facility] [place] [address] Phone [phone] Care Team Providers Care Lube Attendant Name Role Phone Stephenie Maddox Karen DO Primary Care Provider Reason for Visit * Reason Comments Skin Check Routine skin cancer. Reports new spots, scalp, nose, back of neck. Hx: Bcc Encounter Details Date Type Department Care Team (Late st Contact Info) Description 10/26/2023 11:20 AM EST Office Visit Dermatology [facility] 200 [place] [address] Ayaka Alaniz PA-C [address] [facility] [place] [address] Actinic keratosis*; Rosacea; Seborrheic keratosis; History of [...] (Prevnar) 12/03/2015 Pneumococcal Conjugate Vacci ne, 20-valent ([id number]) 02/26/2022 Pneumococcal Polysaccharide PPV23 (Pneumovax) 07/05/2006 Season [...] as of this encounter Progress Notes * Ayaka Alaniz PA-C - 10/26/2023 11:10 AM EST Nursing Notes: Leelee Guillory LPN 10/26/23 1126 Signed Patient identified by name [...] of BCC L cheek 2014, L helix 2014 Hx of rosacea, treating with sulfacetamide 10% [...] patches on crown of scalp and R church 2. Scattered benign appearing lesions over examined [...] Description 11/25/2023 7:30 AM EDT Laboratory Laboratory [facility] [address] [place] [phone] [place], Lab Sc[address] [place] [address] 12/07/2023 1:30 PM EDT Office Visit Gastroenterology, [facility] [address] [place] [phone] Kyra Rsoe CRNP [address] [place] [address] 12/08/2023 1:45 PM EDT Hospital Encounter ENDO [facility], Endoscopy Room [facility] [address] [place] [phone] Marilou Raymond DO [address] [place] [address] 12/08/2023 1:45 PM EDT - 12/08/2023 2:15 PM EDT Surgery ENDO [facility], Endoscopy Room [facility] [address] [place] [phone] Marilou Raymond DO [address] [place] [address] COLONOSCOPY FLEXIBLE PROXIMAL DIAGNOSTIC 02/17/2024 7:30 AM EDT Laboratory Laboratory [facility] [address] [place] [phone] [place], Lab [facility] [address] [facility] [place] [address] 02/25/2024 2:00 PM EDT Office Visit Hematology/Oncolog y [facility] [place] [address] [place] [phone] Kristie Miranda CRNP [address] [facility] [place] [address] 01/23/2025 11:20 AM EDT Office Visit Dermatology [facility] 200 [facility] [place] [address] Ayaka Alaniz PA-C [address] [facility] [place] [address] Scheduled Procedures Name Priority Associated Diagnoses Date/Ti me COLONOSCOPY FLEXIBLE PROXIMA L DIAGNOSTIC Diarrhea 12/08/2023 1:45 PM EDT Health Maintenance Due Date Last Done Comments CKD PHOS USE SMARTSET 29537 12/25/2009 12/25/2008, 1 08/31/2005 Depression Screening 03/13/2022 03/13/2021 Albumin/Creatinine Ratio 02/19/2023 02/19/2022, 01/22 HbA1c 02/19/2023 02/19/2022, 01/22, 02/01/2020, Additional history exists Influenza Vaccine (FLU shot) (#1) 2023 07/06/2022, 06/03/2022, 05/24/2021, Additional history exists GFR 03/09/2024 09/09/2023, 07/24, 06/30/2023, Additional history exists TSH 04/13/2024 04/13/2023, 05/0 08/2022, 02/19/2022, Additional history exists CKD HGB USE SMARTSET 77627 09/09/202409/09, 09/09/2023, 08/19/2023, Additional history exists DTaP,Tdap,and [...] this encounter Medical Devices Implanted Type Area Government Affairs Researcher Device Identifier Shelf Expiration Date Model / Serial / Lot Ring Cantu 27mm [id number] - [id number] Implanted:Qty: 1 on 06[place] [facility] [place] [employer] : CARDIAC SURGERY 10/08/2016 [id number] / [id number] / Mesh Marlex Large [id number] - [id number] Implanted:Qty: 1 on 01/07/2018 by Ori Burleson DO at OR [facility] Right: Groin CR BARD : DAVOL 10/20/2022 [id number] / / [id number] Description:#1 Mesh Marlex Large [id number] - [id number] Implanted:Qty: 1 on 01/07/2018 by Ori Burleson DO at OR [facility] Right: Groin CR BARD : DAVOL 10/20/2022 [id number] / / [id number] Description:#2 documented as of this encounter Visit [...] and were consensually agreed upon. Care Teams Lube Attendant Relationship Specialty Start Date End Date Varsha Casiano DO [address] [place] [address] PCP - General Family Medicine 01/31/17 documented as of this encounter
--- OUTSIDE RECORDS SUMMARY | 2023-12-09 11:45 | External Medical Summary | Summary of Care ---
Author Name Unknown Organization [facility] Address [address] [place] [address] Phone [phone] Care Team Providers Care Analysis Internship Name Role Phone Jaimerudolph Varsha Jones DO Primary Care Provider Encounter Details Date Type Department Care Team (Late st Contact Info) Description 10/18/2023 Orders Only Outcomes Research Department [address] [place] [address] Karen Aldana CHRA [employer] Prep Research Other*[id number] Allergies Active Allergy Reactions Criticality Noted Date [...] as of this encounter (statuses as of 10/18/2023) Medications Medication Sig Dispensed Refills Start Date [...] as of this encounter (statuses as of 10/18/2023) Active Problems Problem Noted Date Diagnosed Date [...] as of this encounter (statuses as of 10/18/2023) Resolved Problems Problem Noted Date Diagnosed Date [...] as of this encounter (statuses as of 10/18/2023) Immunizations Name Administration Dates Next Due COVID-19 mRNA, LNP-s, No Pre serve, 2-Dose Series (Moderna) 05/02/2021,10/18/2020,09/20/2020 COVID-19, mRNA, LNP-s, PF, B ooster, 100mcg/0.5mg (Moderna) 10/13/2021 Pneumococcal Conjugate Vacc, 13 Valent (Prevnar) 12/03/2015 Pneumococcal Conjugate Vacci ne, 20-valent ([id number]) 02/26/2022 Pneumococcal Polysaccharide PPV23 (Pneumovax) 07/05/2006 Season [...] 10/26/2023 11:20 AM EST Office Visit Dermatology [facility] [address] [place] [address] Ayaka Alaniz PA-C [address] [facility] [place] [address] 11/25/2023 7:30 AM EDT Laboratory Laboratory [facility] [address] [place] [address] [facility] [address] [facility] [place] [address] 12/07/2023 1:30 PM EDT Office Visit Gastroenterology, [facility] [address] [place] [address] Kyra Rose CRNP [address] [place] [address] 12/08/2023 1:45 PM EDT Hospital Encounter ENDO [facility], Endoscopy Room [facility] [address] [place], [place] [phone] Marilou Raymond, DO [address] [place] [address] 12/08/2023 1:45 PM EDT - 12/08/2023 2:15 PM EDT Surgery ENDO [facility], Endoscopy Room [facility] [address] [place] [phone] Marilou Raymond, DO [address] [place] [address] COLONOSCOPY FLEXIBLE PROXIMAL DIAGNOSTIC 02/17/2024 7:30 AM EDT Laboratory Laboratory [facility] [address] [place] [phone] O[place]a Lab [facility] [address] [facility] [place] [address] 02/25/2024 2:00 PM EDT Office Visit Hematology/Oncolog y [facility] [place] [address] [place] [phone] Kristie Miranda CRNP [address] [place] [address] [place] [address] Scheduled Orders Name Type Priority Associated Diagnoses Orde r Schedule MYCODE SUBSEQUENT ADULT Lab Routine MyCode Research Other*[id number] Every 6 Months for 2 Occurrences starting 10/18/2023 until 11/06/2024 Scheduled Procedures Name Priority Associated Diagnoses Date/Ti me COLONOSCOPY FLEXIBLE PROXIMA L DIAGNOSTIC Diarrhea 12/08/2023 1:45 PM EDT Health Maintenance Due Date Last Done Comments CKD PHOS USE SMARTSET 69733 12/25/2009 12/25/2008, 1 08/31/2005 Depression Screening 03/13/2022 03/13/2021 Albumin/Creatinine Ratio 02/19/2023 02/19/2022, 01/22 HbA1c 02/19/2023 02/19/2022, 01/22, 02/01/2020, Additional history exists Influenza Vaccine (FLU shot) (#1) 2023 07/06/2022, 06/03/2022, 05/24/2021, Additional history exists GFR 03/09/2024 09/09/2023, 07/24, 06/30/2023, Additional history exists TSH 04/13/2024 04/13/2023, 05/0 08/2022, 02/19/2022, Additional history exists CKD HGB USE SMARTSET 82514 09/09/202409/09, 09/09/2023, 08/19/2023, Additional history exists DTaP,Tdap,and [...] this encounter Medical Devices Implanted Type Area Shop Fitter Device Identifier Shelf Expiration Date Model / Serial / Lot Ring Cantu 27mm [id number] - [id number] Implanted:Qty: 1 on 06/02/2012 [place] [facility] [place] Heart [employer] : CARDIAC SURGERY 10/08/2016 [id number] / [id number] / Mesh Marlex Large [id number] - [id number] Implanted:Qty: 1 on 01/07/2018 by Ori Burleson DO at OR [facility] Right: Groin CR BARD : DAVOL 10/20/2022 [id number] / / [id number] Description:#1 Mesh Marlex Large [id number] - [id number] Implanted:Qty: 1 on 01/07/2018 by Ori Burleson DO at OR [facility] Right: Gian [place]ENS BARD : DAVOL 10/20/2022 [id number] / / [id number] Description:#2 documented as of this encounter Visit Diagnoses Diagnosis MyCode Research Other*[id number] Diarrhea documented in this encounter Advance Directives [...] and were consensually agreed upon. Care Teams Analysis Internship Relationship Specialty Start Date End Date Varsha Casiano DO [address] [place] [address] PCP - General Family Medicine 01/31/17 documented as of this encounter
[2023-12-09] MEDS: ANUSOL SUPP 1 EA PR SCH (11:57)
--- OUTSIDE RECORDS SUMMARY | 2023-12-09 12:59 | External Medical Summary | Summary of Care ---
Author Name Unknown Organization [facility] Address [address] [facility] [place] [address] Phone [phone] Care Team Providers Care Propagator Name Role Phone Jaimerudolph Varsha Jones DO Primary Care Provider Reason for Visit * Reason Onset Date Comments Post Procedure Problem 12/08/2023 Pt called in stating he had the urge to have a BM after getting home from his colonoscopy and when he went "it was all red blood" stated "filled the toilet". Pt denied any abd pain. Pt stating he has never had that happen after his previous colonoscopy appts. I called and spoke w/ Dr Raymond who stated it was probably from his bx sites. He wouldn't be surprised if he had 1 or 2 more bloody bowel movements but if it is more than that or continues he was to go the ER at [facility]. Encounter Details Date Type Department Care Team (Late st Contact Info) Description 12/08/2023 Telephone OR [facility], Operating Room [facility] [address] [place] [phone] Marilou Raymond DO [address] [place] [id number] Post Procedure Problem (Pt called in stati... Allergies Active Allergy Reactions Criticality Noted Date [...] as of this encounter (statuses as of 12/08/2023) Medications Medication Sig Dispensed Refills Start Date [...] at bedtime. 120 Capsule 6 08/27/2023 Active Additional Information Patient taking differently:0.8 [...] Active Losartan Potassium 25 MG Oral Tablet (Cozaar)Indications:H TN, goal below 140/90 Take 1 Tablet by mouth in the morning. 34 Tablet 3 12/07/2023 Active documented as of this encounter (statuses as of 12/08/2023) Active Problems Problem Noted Date Diagnosed Date [...] as of this encounter (statuses as of 12/08/2023) Resolved Problems Problem Noted Date Diagnosed Date [...] as of this encounter (statuses as of 12/08/2023) Immunizations Name Administration Dates Next Due COVID-19 mRNA, LNP-s, No Pre serve, 2-Dose Series (Moderna) 05/02/2021,10/18/2020,09/20/2020 COVID-19, mRNA, LNP-s, PF, B ooster, 100mcg/0.5mg (Moderna) 10/13/2021 Pneumococcal Conjugate Vacc, 13 Valent (Prevnar) 12/03/2015 Pneumococcal Conjugate Vacci ne, 20-valent ([id number]) 02/26/2022 Pneumococcal Polysaccharide PPV23 (Pneumovax) 07/05/2006 Season [...] encounter Miscellaneous Notes * Telephone Encounter - Lavern Gomez RN - 12/08/2023 3:48 PM EDT Pt called in stating he had the urge to have a BM after getting home from his colonoscopy and when he went "it was all red blood" stated "filled the toilet". Pt denied any abd pain. Pt stating he hasnever had that happen after his previous colonoscopy appts. I called and spoke w/ Dr Raymond who stated it was probably from his bx sites. He wouldn't be surprised if he had 1 or 2 more bloody bowel movements but if it is more than that or continues he was to go the ER at [facility]. Pt instructed to hold his Eloquis x 72 hours. Pt verbalized understanding. documented in this encounter Plan of Treatment Upcoming Encounters Date Type Department Care Team (Late st Contact Info) Description 12/10/2023 11:00 AM EDT Office Visit Urology Kenisha Damonwn [address] [place] [address] [place] [address] Mariza Martin PA-C [address] [place] [address] [place] [address] 12/20/2023 9:30 AM EDT Office Visit Hematology/Oncology [facility] [place] [address] [facility] [place] [phone] Kristie Miranda CRNP [address] [place] [address] 01/04/2024 2:30 PM EDT Office Visit Gastroenterology, [facility] [address] [place] [address] Kyra Rose CRNP [address] [place] [address] 02/17/2024 7:30 AM EDT Laboratory Laboratory [facility] [place] [address] [place] [phone] Welcome, [facility] [address] [facility] [place] [address] 01/23/2025 11:20 AM EDT Office Visit Dermatology [facility] [place] [address] [place] [address] Ayaka Alaniz, YOSEPH [address] [facility] [place] [address] Scheduled Procedures Name Priority Associated Diagnoses Date/Ti me COLONOSCOPY FLEXIBLE PROXIMA L DIAGNOSTIC Diarrhea 12/08/2023 1:47 PM EDT Health Maintenance Due Date Last Done Comments CKD PHOS USE SMARTSET 39849 12/25/2009 12/25/2008, 1 08/31/2005 Depression Screening 03/13/2022 03/13/2021 Albumin/Creatinine Ratio 02/19/2023 02/19/2022, 01/22 HbA1c 02/19/2023 02/19/2022, 01/22, 02/01/2020, Additional history exists TSH 04/13/2024 04/13/2023, 05/0 08/2022, 02/19/2022, Additional history exists Influenza Vaccine (FLU shot) (Season Ended) 2024 07/06/2022, 06/03/2022, 05/24/2021, Additional history exists GFR 06/03/2024 12/03/2023, 08/23, 08/19/2023, Additional history exists CKD HGB USE SMARTSET 81318 12/02/202412/02, 12/03/2023, 09/09/2023, Additional history exists DTaP,Tdap,and [...] this encounter Medical Devices Implanted Type Area Employee Relations Manager Device Identifier Shelf Expiration Date Model / Serial / Lot Ring Cantu 27mm [id number] - [id number] Implanted:Qty: 1 on 06/02/2012 at OR [facility] N/A: Heart [employer] : CARDIAC SURGERY 10/08/2016 [id number] / [id number] / Mesh Marlex Large [id number] - [id number] Implanted:Qty: 1 on 01/07/2018 by Ori Burleson DO at OR [facility] Right: Groin CR BARD : DAVOL 10/20/2022 [id number] / / [id number] Description:#1 Mesh Marlex Large [id number] - [id number] Implanted:Qty: 1 on 01/07/2018 by Ori Burleson DO at OR [facility] Right: Groin CR BARD : DAVOL 10/20/2022 [id number] / / [id number] Description:#2 documented as of this encounter Advance [...] and were consensually agreed upon. Care Teams Propagator Relationship Specialty Start Date End Date Varsha Casiano DO [address] [place] [address] PCP - General Family Medicine 01/31/17 documented as of this encounter
--- OUTSIDE RECORDS SUMMARY | 2023-12-09 13:08 | External Medical Summary | Summary of Care ---
Author Name Unknown Organization [facility] Address [address] [place] [address] Phone [phone] Care Team Providers Care Mash Tub Cooker Operator Name Role Phone JaimeVarsha galdamez Primary Care Provider Reason for Visit * Auth/Cert Specialty Diagnoses / Procedures Referred By Kole macario Referred To Contact Diagnoses Diarrhea Diarrhea [R19.7] Procedures COLONOSCOPY, DIAGNOSTIC (RECTUM) COLONOSCOPY FLEXIBLE PROXIMAL DIAGNOSTIC Referral ID Status Reason Start Date Expiration Date Visits Re quested Visits Authorized [id number] Encounter Details Date Type Department Care Team (Latest Contact Info) Description 12/08/2023 12:52 PM EDT - 12/08/2023 3:03 PM EDT Hospital Encounter [facility], Endoscopy Room [facility] [address] [place] [id number] Marilou Raymond DO [address] [place] [id number] Colonoscopy Discharge Disposition: Home - Self Care Allergies Active Allergy Reactions Criticality Noted Date [...] as of this encounter (statuses as of 12/09/2023) Medications Medication Sig Dispensed Refills Start Date [...] hour prior to intercourse 30 Tablet 11 3 Active Sulfacetamide Sodium-Sulfur 10-5 % External [...] as of this encounter (statuses as of 12/09/2023) Active Problems Problem Noted Date Diagnosed Date [...] as of this encounter (statuses as of 12/09/2023) Resolved Problems Problem Noted Date Diagnosed Date [...] as of this encounter (statuses as of 12/09/2023) Immunizations Name Administration Dates Next Due COVID-19 mRNA, LNP-s, No Pre serve, 2-Dose Series (Moderna) 05/02/2021,10/18/2020,09/20/2020 COVID-19, mRNA, LNP-s, PF, B ooster, 100mcg/0.5mg (Moderna) 10/13/2021 Pneumococcal Conjugate Vacc, 13 Valent (Prevnar) 12/03/2015 Pneumococcal Conjugate Vacci ne, 20-valent ([id number]) 02/26/2022 Pneumococcal Polysaccharide PPV23 (Pneumovax) 07/05/2006 Season [...] of Alcohol Consumption 2-4 times a mon 02/29/2020 Average Number of Drinks 1 or [...] on file documented as of this encounter Last Filed Vital Signs Vital Sign Reading Time Taken Comments Blood Pressure 120/60 12/08/2023 2:31 PM EDT Pulse 60 12/08/2023 2:31 PM EDT Temperature 36.4 C (97.5 F) 12/08/2023 2:05 PM ED T Respiratory Rate 18 12/08/2023 2:31 PM EDT Oxygen Saturation 96% 12/08/2023 2:31 PM EDT Inhaled Oxygen Concentration - - Weight 87.1 kg (192 lb) 12/08/2023 1:30 PM EDT Height 182.2 cm (5' 11.73") 12/08/2023 1:30 PM E DT Body Mass Index 26.23 12/08/2023 1:30 PM EDT documented in this encounter Functional Status Functional Status Response [...] No 09/29/2018 documented as of this encounter H&P Notes * Marilou Raymond, - 12/08/2023 1:42 PM EDT Endoscopy Pre-Procedure Assessment Name: Mac Mullins Date: 12/08/2023 Time: 1:42 PM Procedure(s): Colonoscopy; with Indication(s) of colon polyp surveillance Endoscopy Pre-Procedure Assessment: Prior to the procedure, the patient is identified. The patient's history, medications and allergieshave been reviewed. The patient is competent. The risks and benefits of the proposed procedure and the planned sedation have been discussed with the patient. All questions have been answered and informed consent for the procedure has been obtained. Prior to Admission medications Medication Sig Last Dose Discont. Losartan Potassium 25 MG Oral Tablet (Cozaar) Take 1 Tablet by mouth in the morning. 12/07/2023 Aspirin 81 MG Oral Tablet Delayed Release Take 1 Tablet by mouth once a day on Wednesday, Wednesday, and Wednesday only. 12/07/2023 Tamsulosin HCl 0.4 MG Oral Capsule (Flomax) Take 2 Capsules by mouth in the morning. Take at bedtime. Patient taking differently: Take 2 Capsules by mouth every evening. Take at bedtime 12/07/2023 Metoprolol Succinate ER 25 MG Oral Tablet Extended Release 24 Hour (toPROL XL) Take 1/2 tab by mouth every evening 12/07/2023 Rosuvastatin Calcium 10 MG Oral Tablet (Crestor) Take 1 Tablet by mouth at bedtime. 12/07/2023 Ubiquinol 100 MG Oral Capsule Take by mouth at bedtime. 12/07/2023 Loperamide HCl 2 MG Oral Tablet Take 1 Tablet by mouth 4 times a day as needed for Diarrhea. Past Week Vitamin B Complex Oral Tablet Take 1 Tablet by mouth in the morning. 12/07/2023 Sulfacetamide Sodium-Sulfur 10-5 % External Cream Apply to face once daily Past Week Apixaban 5 MG Oral Tablet (Eliquis) Take 1 Tablet (5 mg) by mouth in the morning and 1 Tablet (5 mg) before bedtime. 12/04/2023 Levothyroxine Sodium 75 MCG Oral Tablet (Levoxyl) Take by mouth 1 Tablet in the morning. (at least 30 min prior to breakfast or other meds). 12/08/2023 Hydrocortisone (Perianal) 2.5 % External Cream (Anusol-HC) Administer into the rectum 2 times a day. 12/02/2023 Vitamin C 250 MG Oral Tablet (Ascorbic Acid) Take 1 Tablet by mouth in the morning. 12/07/2023 Calcium Carbonate-Vitamin D 500-5 MG-MCG Oral Tablet Take 1 Tablet by mouth in the morning. 12/07/2023 Lactobacillus (PROBIOTIC ACIDOPHILUS) CAPS Take by mouth daily. 12/07/2023 MULTIVITAMINS PO CAPS one capsule daily 12/07/2023 Finasteride 5 MG Oral Tablet (Proscar) Take 1 Tablet by mouth in the morning. Patient not taking: Reported on 10/13/2023 Not Taking Sildenafil Citrate 20 MG Oral Tablet (Revatio) Take 3-5 tabs as needed 1 hour prior to intercourse Review of patient's allergies indicates: Allergen Reactions Aspirin Other (Please comment) Upset stomach Ciprofloxacin Cipro instructions say report numbness/tingling/pain in extremities. Had on & off pain in rt. foot at night. Numbness today. Have occssionally had pain in rt. foot at night following back surgery, but have not had numbness. Never had problem with Cipro before and now no problems with any other extremities. Latex Octacosanol Other (Please comment) Pt is unsure . Stuffy nose, runny nose muscle pain BP 133/78 | Temp 36.4 C (97.6 F) (Tympanic) | Resp 18 | Ht 1.822 m (5' 11.73") | Wt 87.1 kg (192 lb) | SpO2 98% | BMI 26.23 kg/m | BSA 2.1 m Physical Exam: Mental Status Examination: alert and oriented. Airway Examination: normal oropharyngeal airway and neck mobility. Respiratory Examination: clear to auscultation. CV Examination: regular rate and rhythm. ASA Grade: III - A patient with severe systemic disease. Abdomen: soft This patient has undergone a preprocedural evaluation. A determination has been made to proceed with the planned procedure under [facility] procedural guidelines and the [facility] Non-Emergent, Elective Medical Services and Treatment Recommendations (published on 11-28-19). The community and hospital prevalence of COVID-19 has been discussed as well as this patient's specific risks associated with SARS-CoV-19 infection. Based upon the clinical acuity and patient-specific care considerations, this procedure is deemed a Tier II - Intermediate acuity treatment or service with either progression or the threat of progressive disease related to the delay in treatment. Not providing the service has the potential for increasing morbidity or mortality. After reviewing the risks and benefits, the patient is deemed in satisfactory condition to undergo the procedure. The anesthesia plan is to use general anesthesia. I have discussed the risks of colonoscopy to include bleeding, infection, perforation, pain, missed polyps, and need for follow-up studies. Marilou Raymond DO 12/08/2023 documented in this encounter Procedure Notes * Varsha Casiano DO - 12/08/2023 1:43 PM EDTAssociated Order(s): COLONOSCOPY [facility] Patient Name: Mac Mullins Procedure Date: 12/08/2023 1:43 PM Date of : 1940 Admit Type: Outpatient Note Status: Finalized Date of : 1940 Admit Type: Outpatient Age: 83 Room: Advanced [facility] Gender: Male Note Status: Finalized Procedure: Colonoscopy Indications: High risk colon cancer surveillance: Personal history of colonic polyps, Last colonoscopy: July 2019, Incidental change in bowel habits noted Providers: Marilou Raymond DO (Doctor) Referring MD: Maddox K. Keiter, DO (Referring MD) Medicines: General Anesthesia Complications: No immediate complications. Estimated blood loss: Minimal. Procedure: Pre-Anesthesia Assessment: - Prior to the procedure, a History and Physical was performed, and patient medications, allergies and sensitivities were reviewed. The patient's tolerance of previous anesthesia was reviewed. - The risks and benefits of the procedure and the sedation options and risks were discussed with the patient. All questions were answered and informed consent was obtained. - Patient identification and proposed procedure were verified prior to the procedure by the physician, the nurse and the internet specialist. The procedure was verified in the procedure room. - Pre-procedure physical examination revealed no contraindications to sedation. - ASA Grade Assessment: III - A patient with severe systemic disease. - The anesthesia plan was to use general anesthesia. - Immediately prior to administration of medications, the patient was re- assessed for adequacy to receive sedatives. - The heart rate, respiratory rate, oxygen saturations, blood pressure, adequacy of pulmonary ventilation, and response to care were monitored throughout the procedure. - The physical status of the patient was re-assessed after the procedure. After I obtained informed consent, the scope was passed under direct vision. All instruments were visually inspected immediately before and after removal from the patient to ensure they are fully intact. Throughout the procedure, the patient's blood pressure, pulse, and oxygen saturations were monitored continuously. The [id number] Colonoscope ([id number]) was introduced through the anus and advanced to the terminal ileum. The colonoscopy was performed without difficulty. The patient tolerated the procedure well. The quality of the bowel preparation was good. Findings & Specimens: Hemorrhoids were found on perianal exam. The terminal ileum appeared normal. Normal mucosa was found in the entire colon. Biopsies for histology were taken with a cold forceps from the entire colon for evaluation of microscopic colitis. The pathology specimen was placed into Bottle A. Estimated blood loss was minimal. Multiple small and large-mouthed diverticula were found in the sigmoid colon, descending colon and transverse colon. Internal hemorrhoids were found during retroflexion. The hemorrhoids were moderate. The exam was otherwise without abnormality. Impression: - Hemorrhoids found on perianal exam. - The examined portion of the ileum was normal. - Normal mucosa in the entire examined colon. Biopsied. - Moderate diverticulosis in the sigmoid colon, in the descending colon and in the transverse colon. - Internal hemorrhoids. - The examination was otherwise normal. Recommendation: - The patient will be observed post-procedure, until all discharge criteria are met. - Advance diet as tolerated today. - Await pathology results. - Repeat colonoscopy is not recommended for surveillance. - Return to referring physician as previously scheduled. Symptoms may be related to a medication such as Crestor. - Use fiber, for example Citrucel, Fibercon, Konsyl or Metamucil. Marilou Raymond DO 12/08/2023 2:04:01 PM This report has been signed electronically. documented in this encounter Nursing Notes * Dona Villela RN - 12/08/2023 2:45 PM EDT Patient is alert, pain free, passing flatus and tolerating po fluids prior to discharge. Patient has been visited by Dr. Marilou Raymond. Patient has received and demonstrates understanding of discharge instructions. Patient is transported via w/c to private auto accompanied by endo staff. * Dona Villela RN - 12/08/2023 2:44 PM EDT Pt dressed waiting to speak with Dr Raymond. * Dona Villela RN - 12/08/2023 2:29 PM EDT D/C instructions given to pt, verbalized understanding. * Dona Villela RN - 12/08/2023 2:23 PM EDT Pt awake, sitting up tolerating PO fluids. * Dona Villela RN - 12/08/2023 2:05 PM EDT Received pt, sleeping, VSS, CM shows NSB. Report given by Natalya ROSAS. * Gorge Adler RN - 12/08/2023 2:02 PM EDT Specimen(s) and location(s) verified with physician post procedure 2:02 PM Gorge Adler RN No abdominal pressure given See anesthesia record for medication administered during procedure. Gorge Adler RN Pre cleaning of scope at the bedside started by anaesthetic technician. * Ely Ace RN - 12/08/2023 1:32 PM EDT The following pt discharge instructions reviewed with pt prior to prodedure: No driving today. No alcohol today. No signing of legal documents. Rest as much as possible today and can return to normal activities tomorrow. No operating any heavy equipment today. Diet as tolerated. Pt verbalized understanding. documented in this encounter Plan of Treatment Upcoming Encounters Date Type Department Care Team (Late st Contact Info) Description 12/20/2023 9:30 AM EDT Office Visit Hematology/Oncology [facility] [address] [facility], [place] [phone] Kristie Miranda CRNP [address] [place] [address] 01/04/2024 2:30 PM EDT Office Visit Gastroenterology, [facility] [address] [facility] [place] [address] Kyra Rose CRNP [address] [facility] [place] [address] 02/17/2024 7:30 AM EDT Laboratory Laboratory [facility] [address] [place] [phone] [place], [facility] [address] [place] [address] 01/23/2025 11:20 AM EDT Office Visit Dermatology [facility] [place] [address] [place] [address] Ayaka Alaniz PA-C [address] [place] [address] Pending Results Name Type Priority Associated Diagnoses Date /Time SURGICAL PATHOLOGY Pathology Routine Diarrhea 12/08/2023 2:01 PM EDT Scheduled Orders Name Type Priority Associated Diagnoses Orde r Schedule SURGICAL PATHOLOGY Pathology Routine Diarrhea Release Upon Ordering for 1 Occurrences starting 12/08/2023, 1 completed Health Maintenance Due Date Last Done Comments CKD PHOS USE SMARTSET 17302 12/25/2009 12/25/2008, 1 08/31/2005 Depression Screening 03/13/2022 03/13/2021 Albumin/Creatinine Ratio 02/19/2023 02/19/2022, 01/22 HbA1c 02/19/2023 02/19/2022, 01/22, 02/01/2020, Additional history exists TSH 04/13/2024 04/13/2023, 05/0 08/2022, 02/19/2022, Additional history exists Influenza Vaccine (FLU shot) (Season Ended) 2024 07/06/2022, 06/03/2022, 05/24/2021, Additional history exists GFR 06/03/2024 12/03/2023, 08/23, 08/19/2023, Additional history exists CKD HGB USE SMARTSET 31600 12/02/202412/02, 12/03/2023, 09/09/2023, Additional history exists DTaP,Tdap,and [...] this encounter Medical Devices Implanted Type Area International Marketing Coordinator Device Identifier Shelf Expiration Date Model / Serial / Lot Ring Cantu 27mm [id number] - [id number] Implanted:Qty: 1 on 06/02/2012 at [place] [facility]/A: Heart [employer] : CARDIAC SURGERY 10/08/2016 [id number] / [id number] / Mesh Marlex Large [id number] - [id number] Implanted:Qty: 1 on 01/07/2018 by Ori Burleson DO at OR [facility] Right: Groin CR BARD : DAVOL 10/20/2022 [id number] / / [id number] Description:#1 Mesh Marlex Large [id number] - [id number] Implanted:Qty: 1 on 01/07/2018 by Ori Burleson DO at OR [facility] Right: Groin CR BARD : DAVOL 10/20/2022 [id number] / / [id number] Description:#2 documented as of this encounter Procedures Procedure Name Priority Date/Time Associated Diagnosis Comments COLONOSCOPY 12/08/2023 1:43 PM EDT documented in this encounter Results * COLONOSCOPY (12/08/2023 1:43 PM EDT) 12/08/2023 1:43 PM EDT Narrative Procedure Note Varsha Casiano DO - 12/08/2023 1:43 PM EDT [facility] Patient Name: Mac Mullins Procedure Date: 12/08/2023 1:43 PM Date of : 1940 Admit Type: Outpatient Note Status:Finalized Date of : 1940 Admit Type: Outpatient Age: 83 Room: Advanced Endo Gender: Male Note Status: Finalized Procedure: Colonoscopy Indications: High risk colon cancer surveillance: Personalhistory of colonic polyps, Last colonoscopy: July 2019, Incidental change inbowel habits noted Providers: Marilou Raymond DO (Doctor) Referring MD: Varsha Casiano DO (Referring MD) Medicines: General Anesthesia Complications: No immediate complications. Estimated blood loss:Minimal. Procedure: Pre-Anesthesia Assessment: - Prior to the procedure, a History and Physicalwas performed, and patient medications, allergies and sensitivities werereviewed. The patient's tolerance of previous anesthesia was reviewed. - The risks and benefits of the procedure and thesedation options and risks were discussed with the patient. All questions wereanswered and informed consent was obtained. - Patient identification and proposed procedurewere verified prior to the procedure by the physician, the nurse and the internet specialist.The procedure was verified in the procedure room. - Pre-procedure physical examination revealed nocontraindications to sedation. - ASA Grade Assessment: III - A patient with severesystemic disease. - The anesthesia plan was to use generalanesthesia. - Immediately prior to administration ofmedications, the patient was re-assessed for adequacy to receive sedatives. - The heart rate, respiratory rate, oxygensaturations, blood pressure, adequacy of pulmonary ventilation, and response to care weremonitored throughout the procedure. - The physical status of the patient wasre-assessed after the procedure. After I obtained informed consent, the scope waspassed under direct vision. All instruments were visually inspected immediatelybefore and after removal from the patient to ensure they are fully intact. Throughout the procedure, the patient's bloodpressure, pulse, and oxygen saturations were monitored continuously. The [id number] ([id number]) was introduced through the anus and advanced to the terminalileum. The colonoscopy was performed without difficulty. The patient tolerated theprocedure well. The quality of the bowel preparation was good. Findings & Specimens: Hemorrhoids were found on perianal exam. The terminal ileum appeared normal. Normal mucosa was found in the entire colon. Biopsies for histologywere taken with a cold forceps from the entire colon for evaluation of microscopic colitis. The pathologyspecimen was placed into Bottle A. Estimated blood loss was minimal. Multiple small and large-mouthed diverticula were found in thesigmoid colon, descending colon and transverse colon. Internal hemorrhoids were found during retroflexion. The hemorrhoidswere moderate. The exam was otherwise without abnormality. Impression: - Hemorrhoids found on perianal exam. - The examined portion of the ileum was normal. - Normal mucosa in the entire examined colon.Biopsied. - Moderate diverticulosis in the sigmoid colon, inthe descending colon and in the transverse colon. - Internal hemorrhoids. - The examination was otherwise normal. Recommendation: - The patient will be observed post-procedure,until all discharge criteria are met. - Advance diet as tolerated today. - Await pathology results. - Repeat colonoscopy is not recommended forsurveillance. - Return to referring physician as previouslyscheduled. Symptoms may be related to a medication such as Crestor. - Use fiber, for example Citrucel, Fibercon, Konsylor Metamucil. Marilou Raymond DO 12/08/2023 2:04:01 PM This report has been signed electronically. Varsha Casiano DO [facility] documented in this encounter Visit Diagnoses Diagnosis Diarrhea documented in this encounter Administered Medications Inactive Administered Medications - up to 3 most recent administrations Medication Order MAR Action Action Date Dose Rate Site Acetaminophen (Tylenol) tab 650 mg 650 mg, Oral, PRN Pain, Mild, Starting on Wed12/08/23 at 1410, Until Wed12/08/23 at 1903, For 1 dose, Maximum of 4 grams (4000 mg) per day., Post-op isolyte-S pH 7.4 infusion Intravenous, at 100 mL/hr, Plasma-LYTE 148, isolyte-S, and isolyte-S pH 7.4 are considered equivalent - including for MAR barcode scanning., CONTINUOUS, Starting on Wed12/08/23 at 1345, Until Wed12/08/23 at 1903, Pre-Op Restarted 12/08/2023 1:58 PM EDT Continue from Pre-Op 12/08/2023 1:45 PM EDT 100 mL/hr New Bag 12/08/2023 1:34 PM EDT 100 mL/hr documented in this encounter Active and Recently Administered Medications Times are shown in EDT. Continuous Medication Order 12/06/2023 12/07/2023 12/08/2023 isolyte-S pH 7.4 infusion Intravenous, at 100 mL/hr, Plasma-LYTE 148, isolyte-S, and isolyte-S pH 7.4 are considered equivalent - including for MAR barcode scanning., CONTINUOUS, Starting on Wed12/08/23 at 1345, Until Wed12/08/23 at 1903, Pre-Op 1334 (New Bag - Prov ider: Ely Ace RN)1345 (Continue from Pre-Op - Provider: Natalya Espinoza CRNA)1357 (Paused - Provider: Natalya Espinoza CRNA - Comment: Switch to gravity)1358 (Restarted - Provider: Natalya Espinoza CRNA) PRN Medication Order 12/06/2023 12/07/2023 12/08/2023 Acetaminophen (Tylenol) tab 650 mg 650 mg, Oral, PRN Pain, Mild, Starting on Wed12/08/23 at 1410, Until Wed12/08/23 at 1903, For 1 dose, Maximum of 4 grams (4000 mg) per day., Post-op documented in this encounter Advance Directives Latest Code Status on File Code Status Date Activated Date Inactivated Comments Full Code 09/29/2018 11:26 AM 09/30/2018 10:09 PM Question Answer Comments Discussion of Advance Direct ajqueline occurred with: Not Discussed Code Status History Code Status Date Activated Date Inactivated Comments Full Code 06/02/2012 2:59 PM 06/08/2012 7:06 PM Thi s order reflects the patients wishes and were consensually agreed upon. Care Teams Mash Tub Cooker Operator Relationship Specialty Start Date End Date Varsha Casiano DO [address] [place] [address] PCP - General Family Medicine 01/31/17 documented as of this encounter
[2023-12-09] MEDS: LOSARTAN POTASSIUM 25 MG TAB PO SCH (13:25)
[2023-12-09 13:26] LABS: Hematocrit (blood only) 36.6 % (42.0-52.0); Hemoglobin 12.2 g/dl (14.0-18.0)
[2023-12-09] MEDS: TAMSULOSIN HCL 0.4 MG CAP PO SCH (20:24)
[2023-12-09] MEDS: METOPROLOL SUCC 25MG EXT REL TAB PO SCH (20:24)
[2023-12-09 20:37] LABS: Hematocrit (blood only) 35.3 % (42.0-52.0); Hemoglobin 11.7 g/dl (14.0-18.0)
[2023-12-10 06:31] LABS: Hematocrit (blood only) 35.3 % (42.0-52.0); Hemoglobin 11.7 g/dl (14.0-18.0); Mean Corpuscular Hemoglobin 29.5 pg (25.0-34.0); Mean Corpuscular Hgb Conc 33.1 g/dL (32.0-36.0); Mean Corpuscular Volume 88.9 fL (80.0-100.0); Mean Platelet Volume 10.7 fL (9.4-12.4); Platelet Count 144 K/uL (130-400); RDW Coefficient of Variation 13.2 % (11.5-14.5); RDW Standard Deviation 43.1 fL (36.4-46.3); Red Blood Count 3.97 M/uL (4.70-6.10); White Blood Count 4.88 K/ul (4.8-10.8)
[2023-12-10 06:49] LABS: BUN Creatinine Ratio 15.2 (10-20); Calcium 8.5 mg/dl (8.6-10.3); Creatinine Clr Calc Pharmacy 54.9 ml/min; Est GFR (Non-African American) 60.4 ml/min; Potassium 4.7 mmol/L (3.5-5.1)
--- NOTE | 2023-12-10 07:17 | Hospitalist Progress Note ---
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 Acute lower GI bleed - s/p colonoscopy with biopsies today 12/07 - VSS, Hgb 14 upon admission, CMP WNL; pt asymptomatic- no need for acute aspirin reversal as pt is stable - protonix 40 mg IV given on admission; would continue daily while bleeding - GI consulted: - Add Anusol for hemorrhoidal bleed - Advance diet - Trend H&H -today diet advanced to full liquids Hx of CVA - occurred 07/2023 - will hold daily aspirin in the setting of acute bleed - continue home rosuvastatin 10 mg daily Hx of aflutter - chronically anticoagulated with eliquis BID (last dose 12/03), initially held, will resume tonight trend H&H - continue home metoprolol 12.5mg nightly Hypothyroidism - continue home levothyroxine 75 mcg daily Diet: full liquid diet VTE ppx: eliquis Code: full Dispo: admit to med/tele Admission and Anticipated Discharge Date Admission Date: December 08, 2023 Supervising Physician Co-Signing Physician Notes ATTESTATION I also saw the patient and confirmed gil portions of the history and exam. I agree with the impression and plan in the resident documentation, and as summarized below. Upon our midmorning exam, the patient is seated in bed. is at bedside. He has no complaints. EXAM 103/50, 55, 16, 36.7 C, 94% on room air Heart regular rate and rhythm, 2/6 systolic ejection murmur heard best at the right sternal border ` Respirations are nonlabored; lungs are clear DATA Labs Hemoglobin 11.7 Sodium 139, potassium 4.7, BUN 17, creatinine 1.12 IMPRESSION & PLAN Acute GI bleed status post colonoscopy with biopsy History of atrial flutter, systemic anticoagulation with apixaban (currently on hold) History of CVA, on aspirin (currently on hold) Advance diet Resume apixaban Check CBC in a.m. If tolerating diet, and no signs of recurrent bleeding, anticipate discharge tomorrow Additional per resident documentation Subjective Patient seen at bedside, calm comfortable cooperative. Discussed with patient restarting his anticoagulation tonight and gradually advancing diet, patient agrees Physical Exam Constitutional: WD/WN, vitals as above ENMT: external ear and nose normal, oropharynx normal Respiratory: normal respiratory effort, lungs clear to auscultation Cardiovascular: RRR, no murmur, no edema Gastrointestinal (Abdomen): Inspection/Auscultation: abdomen normal to inspection Percussion/Palpation: abdomen soft; abdomen nontender Skin: no rashes, warm and dry Results & Data Results & Data Vital Signs (Past 12 Hours) Vital Signs Temp Pulse Pulse Resp BP Pulse Ox O2 Del Method 12/10/23 04:21 36.5 C 53 L 18 116/63 95 Room Air 12/09/23 23:43 36.4 C L 60 18 122/67 94 Room Air 12/09/23 21:59 57 L 12/09/23 20:24 61 12/09/23 20:20 36.7 C 57 L 18 103/61 95 Room Air Resident Activity Tracking Resident Involvement: Resident Care Provided Care Provided: Adult Hospital Medicine
[2023-12-10] MEDS: APIXABAN 5 MG TABLET PO SCH (20:22)
[2023-12-11 06:20] LABS: BUN Creatinine Ratio 14.9 (10-20); Calcium 8.5 mg/dl (8.6-10.3); Creatinine Clr Calc Pharmacy 53.9 ml/min; Est GFR (African American) 68.5 ml/min; Est GFR (Non-African American) 59.1 ml/min
[2023-12-11 06:35] LABS: Hematocrit (blood only) 33.7 % (42.0-52.0); Hemoglobin 11.5 g/dl (14.0-18.0); Mean Corpuscular Hemoglobin 29.6 pg (25.0-34.0); Mean Corpuscular Hgb Conc 34.1 g/dL (32.0-36.0); Mean Corpuscular Volume 86.6 fL (80.0-100.0); Mean Platelet Volume 10.5 fL (9.4-12.4); Platelet Count 134 K/uL (130-400); RDW Coefficient of Variation 13.1 % (11.5-14.5); RDW Standard Deviation 41.2 fL (36.4-46.3); Red Blood Count 3.89 M/uL (4.70-6.10)
--- NOTE | 2023-12-11 13:01 | Discharge Summary ---
Date of Service December 11, 2023 Admission HPI Per Admitting Provider Pt is a 83 yo male with PMH of CVA (07/2023), lymphoma (s/p immune therapy), and BCC presenting d/t bleeding after a colonoscopy. Pt states he had a colonoscopy performed today (with [facility]) where biopsies were taken. Since then, he has had multiple bloody BM- he describes them as bright red. His last colonoscopy was in 2019 where biopsies were also performed. He did not experience any bleeding afterward. He has no hx of colon cancer or abnormal colonoscopies. He denies lightheadedness, dizziness, SOB, and chest pain. He endorses mild lower abdominal pain and feeling like he has to defecate but he cannot. His last eliquis dose was Sunday 12/03 and last aspirin was yesterday 12/06. In the ER, pt was not given any medications or interventions. Principal Diagnosis Acute GI Bleed Discharge Exam Constitutional: well-appearing, no acute distress HEENT: NCAT, no conjunctival injection CV: regular rhythm, systolic murmur, extremities well-perfused, no LE edema Resp: CTABL, no wheezes/rales/rhonchi appreciated, no increased work of breathing GI: soft, nondistended, nontender, BS normoactive MSK: no gross deformities appreciated Discharge Data Allergies Allergy/AdvReac Type Severity Reaction Status Date / Time Latex, Natural Rubber Allergy Unknown Unknown Verified 12/08/23 23:35 aspirin AdvReac Mild GI UPSET Unverified 12/08/23 23:33 Consultations 12/08/23 23:13 Consult Gastroenterology Routine 12/08/23 23:17 ED Decision to Admit Stat Hospital Course (1) Acute GI bleeding: Pt is a 83 yo male with PMH of CVA (07/2023), aflutter, hypothyroidism, lymphoma (s/p immune therapy), and BCC presenting d/t bleeding after a colonoscopy. Acute lower GI bleed - s/p colonoscopy with biopsies today 12/07 - VSS, Hgb 14 upon admission, CMP WNL; pt asymptomatic- no need for acute aspirin reversal as pt is stable - protonix 40 mg IV given on admission; would continue daily while bleeding - GI consulted: - Add Anusol for hemorrhoidal bleed - Advance diet - Trend H&H -today diet advanced to full liquids Hospitalization summary: Patient presented to the hospital on 12/08/2023 due to acute GI bleeding status post colonoscopy. Patient was found to have bright red blood per rectum that was also occurring with bowel movements and he was adm itted to the hospital for observation. He was taken off of his blood thinner as well as his aspirin. Once patient's bleeding had stopped and his hemoglobin is stabilized, he was restarted on his Eliquis. Prior to discharge, patient was without GI bleeding for more than 24 hours while on Eliquis. With this in mind, it was deemed safe for the patient to be discharged home. We recommend at this time to hold his aspirin until follow-up with his primary care provider to determine the risks and benefits of continuing this medication given his history of TIA in the past. Patient is to have a CBC 1 week after discharge to check hemoglobin level. Anusol was sent to pharmacy to help with hemorrhoidal symptoms which was likely the source of the acute GI bleed the patient experienced. Patient to follow-up with primary care provider within 1 to 2 weeks of discharge. Hx of CVA - occurred 07/2023 - will hold daily aspirin in the setting of acute bleed - continue home rosuvastatin 10 mg daily Hx of aflutter - chronically anticoagulated with eliquis BID (last dose 12/03), initially held, will resume tonight trend H&H - continue home metoprolol 12.5mg nightly Hypothyroidism - continue home levothyroxine 75 mcg daily Total Time Total Time Spent Total Time Spent (In Minutes): I spent 20 minutes seeing the patient, reviewing data, completing documentation Discharge Plan Discharge Items Patient Disposition: Home - Self-Care Reason For Visit: GI BLEED Discharge Diagnosis: GI Bleed Activity: Per Instructions section Non-emergency contact: Primary Care Provider Call non-emergency contact if: you have any medication questions and your symptoms worsen Follow-up/Referrals: Trenton Rodriguez MD [Primary Care Provider] - (PLEASE CALL YOUR PRIMARY CARE PROVIDER TO SCHEDULE A HOSPITAL DISCHARGE FOLLOW-UP APPOINTMENT WITHIN 7-10 DAYS) Diet: Regular Ambulatory Orders: Complete Blood Count no Diff (Routine) Timeframe: 1 Week Location: Determined by Patient Ordered By: Alexander Lyel Attending Provider Instructions: He was seen in the hospital for an acute lower gastrointestinal bleed likely secondary to the colonoscopy with biopsy that you had on 12/07. While you are here, you were monitored daily with blood levels which showed resolution of your GI bleed over the course of 2 to 3 days. Your anticoagulation was held during admission and was restarted on your last day of being in the hospital. You were no longer having any bowel movements with blood in it. We also held your aspirin we recommend you continue to not take your aspirin until you follow-up with your primary care provider. Otherwise we have no other changes to note in your medication regimen. Please follow-up with your primary care provider within 1 to 2 weeks of discharge. We would like to check your blood levels 1 week after your discharge. We will make this order for you and have it done at the [facility] lab for your primary care provider to review. It has been a pleasure to be a part of your care and we wish you the best in both your health and your recovery. Pending Studies at Discharge: No Stand-Alone Forms: My [facility], Smoking Cessation Medications and DC Order Prescriptions: New hydrocortisone [Anusol-HC] 2.5 % cream with perineal applicator 1 applic MO DAILY PRN (Reason: hemorrhoids) Qty: 30 0RF Continued B-complex with vitamin C Capsule 1 cap PO DAILY rosuvastatin 10 mg tablet 10 mg PO DAILY levothyroxine 75 mcg capsule 75 mcg PO QAM metoprolol succinate 25 mg capsule,sprinkle,ER 24hr 12.5 mg PO QPM ascorbate calcium (vitamin C) 500 mg tablet 500 mg PO QAM calcium carbonate 500 mg calcium (1,250 mg) Tablet 500 mg PO QAM multivitamin Tablet 1 tab PO QAM tamsulosin 0.4 mg Capsule 0.4 mg PO HS coenzyme Q10 [Co Q-10] 100 mg Capsule 100 mg PO QAM Eliquis 5 mg Tablet 5 mg PO BID Probiotic 3 billion cell Capsule 3,000 mmu cells PO QAM Rx Instructions: administer with a meal losartan 25 mg tablet 25 mg PO QAM Discontinued aspirin [Adult Aspirin Regimen] 81 mg tablet,delayed release (DR/EC) 81 mg PO DAILY Qty: 30 3RF Discharge Orders: Discharge Order (Routine); Ordered 12/11/23 Ordered By: Alexander Alvarado/Other Patient Handouts: Full Liquid Diet Dc Admission Data Admit Date/Time: 12/08/23 23:13 Attending Provider: Christopher Birmingham Admit Provider: Marion Hurt Primary Care Provider: Trenton Rodriguez Other Providers: Solomon Sol; Phu Lawrence Other Interventions: Discharge Summary Assessment (RN) Last Done: 12/11/23 10:03 Supervising Physician Co-Signing Physician Notes ATTESTATION I also saw the patient and confirmed gil portions of the history and exam. I agree with the impression and plan in the resident documentation, and as summarized below. Upon our morning exam, the patient is without complaints. He had a bowel movement without any evidence of bleeding. His hemoglobin has remained stable overnight. EXAM 114/60, 56, 16, 36.6, 93% on room air Heart regular rate and rhythm, 2/6 systolic ejection murmur heard best at the right sternal border ` Respirations are nonlabored; lungs are clear DATA Labs Hemoglobin 11.5 IMPRESSION & PLAN Acute GI bleed status post colonoscopy with biopsy History of atrial flutter, systemic anticoagulation with apixaban (currently on hold) History of CVA, on aspirin (currently on hold) Continue apixaban Hold on aspirin until reevaluated by PCP Discussed signs and symptoms for which to monitor Additional per resident documentation
--- NOTE | 2023-12-22 08:04 | Coding Query ---
CODING QUERY To promote full compliance with coding requirements relating to patient care, provider participation is requested in all cases of healthcare business analyst uncertainty. Please assist us with the question(s) below: Coding Question(s): Acute GI Bleed is documented. The Discharge Summary has conflicting documentation regarding the possible source(s) of Acute GI Bleed with, "Anusol was sent to pharmacy to help with hemorrhoidal symptoms which was likely the source of the acute GI bleed the patient experienced", and also, "He was seen in the hospital for an acute lower gastrointestinal bleed likely secondary to the colonoscopy with biopsy that you had on 12/07". Please specify below, in your clinical opinion, regarding the source(s) of the Acute GI Bleed during this admission: ( X) Acute GI Bleed most likely due to both Hemorrhoidal Bleeding as well as due to the colonoscopy with biopsy. Please specify further below, regarding the GI Bleeding due to colonoscopy with biopsy: ( X ) likely a postprocedural complication ( ) not a postprocedural complication ( ) Acute GI Bleed most likely due to colonoscopy with biopsy. Please specify further below, regarding the GI Bleeding due to colonoscopy with biopsy: ( ) likely a postprocedural complication ( ) not a postprocedural complication ( ) Acute GI Bleed most likely due to Hemorrhoidal Bleeding ( ) Acute GI Bleed most likely due to Other: Please Specify Physician's Response(s): Thank you Vesna Altamirano Principal Diagnosis: "that condition established after study, to be chiefly responsible for occasioning the admission of the patient to the hospital for care." Co-Existing Principal Diagnosis: "when two or more diagnoses equally meet the criteria for principal diagnosis as determined by the circumstances of admission, diagnostic work up, and/or therapy provided, and the Alphabetic Index, Tabular List, or another coding guideline does not provide sequencing direction, any one of the diagnoses may be sequenced first." "When the physician has documented what appears to be a current diagnosis in the body of the record, but has not included the diagnosis in the final diagnostic statement, the physician should be asked whether the diagnosis should be added." (Source Coding Clinic 2 QTR90. p3-4) NICOLASA
== END 2023-12-11 10:54 | disposition home or self-care (01) | DRG 920 ==
LOC: ED 19:43 → EDINP 19:43 → SUATTDRO 23:13 → OBSVTOIN 23:13 → 2N 12-09 10:57